=== PATIENT | female | born 1970 | race Caucasian/White ===

== ENCOUNTER 2018-10-12 06:49 | Emergency (ER) | payer OTHER ==
--- OUTSIDE RECORDS SUMMARY | 2018-10-12 06:53 | XMS REPORT | Continuity of Care Document ---
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 Aortic Active 09/04/19 Problem 09/24/2017 no trx- [facility],Surgic regurgitation<s 08 monitored by al up>1</sup> cardio Specialty [facility] 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 Neuro,[facility] [place] Fatigue Active Problem 10/12/2018 [facility] Foot drop, Resolved Problem 10/12/2018 [facility] [place] [facility] Headache Active Problem 10/12/2018 [facility] H/O: stroke Resolved Problem 10/12/2018 [facility] Paresthesia Active Problem 10/12/2018 [facility] Rheumatoid Active Problem 10/12/2018 [facility] Barretts Active Problem 09/24/2017 [facility],Surgic esophagus oh Specialty [facility] Coccydynia Active Problem 09/24/2017 [facility]Surgic al Specialty [facility] Depression Active Problem 09/24/2017 [facility],Surgic oh Specialty [facility] GERD - Active Problem 09/24/2017 [facility]Surgic Gastro-esophage [facility] reflux Specialty [facility] RA - Rheumatoid Active Problem 09/24/2017 [facility] arthritis UNSPECIFIED Active [facility] SYMPTOMS AND Lionel SIGNS INVOLVING Medications Medication Details Route Status Patient Ordering Order Source Instructions Provider Date heparin sodium, 5,000 unit, 1 No Longer 10/05/ [facility] porcine 2500 mL, Route: Active 2019 [facility] UNT/ML Injectable SUB-Q, Drug Center Solution form: INJ, Q8H-01, Dosing Weight 71.818, kg, Start date: 10/04/18 18:00:00 [employer] TRA[employer]ENGTH COACH, Duration: 30 day, Stop date: 11/03/18 17:00:00 CSTNotes: porcine heparin Ondansetron 4 MG 4 mg=1 tab, PO, Active [place] Oral Tablet TID, PRN Nausea 2019 Medical [Zofran] & Vomiting, # Center 12 tab, 0 Refill(s) tramadol 50 mg=1 tab, Active [place] hydrochloride 50 PO, Q4H, PRN 2019 Medical MG Oral Tablet Pain Score 1-3, Center X 14 day, # 50 tab, 0 Refill(s) sennosides, CUSTODIAL 8.6 mg=1 tab, Active [place] 8.6 MG Oral PO, Q12H, X 14 2019 Medical Tablet day, # 28 tab, Center 0 Refill(s) Promethazine 12.5 mg=1 tab, Active [place] Hydrochloride PO, Q6H, PRN 2019 Medical 12.5 MG Oral Nausea & Center Tablet Vomiting, # 12 [Phenergan] tab, 0 Refill(s) Acetaminophen 325 1 tab, PO, Q4H, Active [place] MG / Hydrocodone PRN Pain Score 2019 Medical Bitartrate 10 MG 4-6, X 14 day, Center Oral Tablet # 60 tab, 0 [[place] 10/325] Refill(s) Docusate Sodium 100 mg=1 cap, Active [place] 100 MG Oral PO, Q12H, # 28 2019 Medical Capsule cap, 0 Center Refill(s) Omeprazole 40 mg, Route: No Longer [place] PO, Daily, Active 2019 Medical Dosing Weight Center 71.818, kg, Start date: 10/04/18 9:00:00 HEAD [employer]THLETIC TRAINER/STRENGTH COACH, Duration: 30 day, Stop date: 11/02/18 9:00:00 HEAD [employer]LETIC TRAINER/STRENGTH COACH Prozac 20 mg, 1 cap, No Longer [place] Route: PO, Drug Active 2019 Medical form: CAP, Center Daily, Dosing Weight 71.818, kg, Start date: 10/04/18 9:00:00 HEAD ATHLETIC TRAINER/STRENGTH COACH, Duration: 30 day, Stop date: 11/02/18 9:00:00 CSTNotes: (Same as: Prozac, Sarafem) Protonix 40 mg, 1 tab, No Longer [place] Route: PO, Drug Active 2018 Medical form: ECTAB, Center Before Breakfast, Start date: 10/04/18 7:30:00 HEAD ATHLETIC TRAINER/STRENGTH COACH, Duration: 30 day, Stop date: 11/02/18 7:30:00 CSTNotes: Tablet should not be chewed or crushed. (Same as: Protonix) Saline Flush 0.9% 10 ml, Route: No Longer [place] IVP, Drug Form: Active 2019 Medical INJ, Dosing Center Weight 71.818, kg, Q12H, Start date: 10/03/18 21:00:00 HEAD ATHLETIC TRAINER/STRENGTH COACH, Duration: 30 day, Stop date: 11/02/18 9:00:00 CSTNotes: (Same as: BD Posiflush) sennosides, CUSTODIAL 8.6 mg, 1 tab, No Longer [place] Route: PO, Drug Active 2018 Medical Form: TAB, Center Dosing Weight 71.818, kg, Q12H, Start date: 10/03/18 21:00:00 HEAD ATHLETIC TRAINER/STRENGTH COACH, Duration: 30 day, Stop date: 11/02/18 9:00:00 CSTNotes: (Same as: Senokot) Docusate Sodium 100 mg, 1 cap, No Longer [place] 100 MG Oral Route: PO, Drug Active 2018 Medical Capsule form: CAP, Center Q12H, Dosing Weight 71.818, kg, Start date: 10/03/18 21:00:00 HEAD ATHLETIC TRAINER/STRENGTH COACH, Duration: 30 day, Stop date: 11/02/18 9:00:00 CSTNotes: (Same as: Colace) (Do Not Crush) ceFAZolin (SCIP) 2 gm, 20 mL, No Longer [place] Route: IVPB, Active 2019 Medical Drug form: Center SOLN, ABXQ8H, Dosing Weight 71.818, kg, Start date: 10/03/18 21:00:00 HEAD ATHLETIC TRAINER/STRENGTH COACH, Duration: 24 hr, Stop date: 10/04/18 13:00:00 HEAD ATHLETIC TRAINER/STRENGTH COACH, ABX Indication: Surgical ProphylaxisNote s: (Same as Ancef) gabapentin 300 mg, 1 cap, No Longer [place] Route: PO, Drug Active 2018 Medical form: CAP, TID, Center Dosing Weight 71.818, kg, Start date: 10/03/18 17:00:00 HEAD ATHLETIC TRAINER/STRENGTH COACH, Duration: 30 day, Stop date: 11/02/18 13:00:00 CSTNotes: (Same as: Neurontin) Hydromorphone 0.5 mg, Route: Inactive [facility] IVP, ONCE, 2018 Medical Dosing Weight Center 71.818, kg, PRN Pain Score 7-10, Start date: 10/03/18 16:26:00 HEAD ATHLETIC TRAINER/STRENGTH COACH Cefazolin 2 gm, 20 mL, Inactive [facility] Route: IVPB, 2018 Medical Drug form: Center SOLN, Q8H, Dosing Weight 71.818, kg, Start date: 10/03/18 16:00:00 HEAD ATHLETIC TRAINER/STRENGTH COACH, Duration: 24 hr, Stop date: 10/04/18 8:00:00 HEAD ATHLETIC TRAINER/STRENGTH COACH, ABX Indication: Surgical ProphylaxisNote s: (Same as Ancef) sugammadex (ANES) Route: IV, Drug Inactive [place] form: SOLN, 2018 Medical ONCE, Stop Center date: 10/03/18 16:00:00 HEAD ATHLETIC TRAINER/STRENGTH COACH Diphenhydramine 12.5 mg, 0.25 Inactive [facility] mL, Route: IVP2018 Medical Drug form: INJ, Center Q6H, Dosing Weight 71.818, kg, PRN Itching, Start date: 10/03/18 15:55:00 HEAD ATHLETIC TRAINER/STRENGTH COACH, Duration: 1 day, Stop date: 10/04/18 15:54:00 CSTNotes: (Same as: Benadryl) Naloxone 0.4 mg, 1 mL, Inactive [facility] Route: IVP, 2018 Medical Drug form: INJ, Center Q2MIN, Dosing Weight 71.818, kg, PRN Narcotic Reversal, Start date: 10/03/18 15:55:00 HEAD ATHLETIC TRAINER/STRENGTH COACH, Duration: 8 doses or times, Stop date: 10/04/18 0:00:00 CSTNotes: Same as Narcan Albuterol 0.83 2.49 mg, 3 mL, Inactive [facility] MG/ML Inhalant Route: NEB, 2018 Medical Solution Drug form: Center SOLN, Q20Min, Dosing Weight 71.818, kg, PRN Wheezing, Priority: STAT, Start date: 10/03/18 15:55:00 HEAD ATHLETIC TRAINER/STRENGTH COACH, Stop date: 10/04/18 0:00:00 CSTNotes: SEE RT DOCUMENTATION (Same as: Proventil) Flumazenil 0.2 mg, 2 mL, Inactive [place] Route: IVP, 2018 Medical Drug form: INJ, Center PRN, Dosing Weight 71.818, kg, PRN Benzodiazepine Reversal, Initial dose, Start date: 10/03/18 15:55:00 HEAD ATHLETIC TRAINER/STRENGTH COACH, Stop date: 10/04/18 0:00:00 CSTNotes: (Same as: Romazicon) Fentanyl 50 microgram, Inactive [facility] Route: IVP, 2018 Medical Q5Min, Dosing Center Weight 71.818, kg, PRN Pain Score 7-10, Priority: Routine, Start date: 10/03/18 15:55:00 HEAD ATHLETIC TRAINER/STRENGTH COACH, Duration: 2 doses or times, Stop date: Limited # of times Promethazine 6.25 mg, 0.25 Inactive [place] mL, Route: 2019 Medical IVPB, Drug Center form: INJ, ONCE, Dosing Weight 71.818, kg, PRN Nausea & Vomiting, Start date: 10/03/18 15:55:00 CSTNotes: Do not give IV push. (Same as: Phenergan) Ondansetron 4 mg, 2 mL, Inactive [facility] Route: IVP, 2018 Medical Drug form: INJ, Center ONCE, Dosing Weight 71.818, kg, PRN Nausea & Vomiting, Start date: 10/03/18 15:55:00 CSTNotes: (Same as: Zofran) MEDICATION WASTE Product Size: 4 mg Product Wasted: ___ mg Nicardipine 40 mg, 200 mL, No Longer [facility] Rate: Titrate, Active 2019 Medical Start Dose: 5 Center mg/hr, Titration: 2.5 mg/hr every 15 minutes, Goal(s): SBP 90-140, Max Dose: 15 mg/hr, Route: IV, Dosing Weight 71.818 kg, Total Volume: 200, Start date: 10/03/18 15:55:00 HEAD ATHLETIC TRAINER/STRENGTH COACH, Duration: 30 day, Stop date: 0...Notes: Same as: Cardene Tylenol 650 mg, 2 tab, No Longer [place] Route: PO, Drug Active 2019 Medical form: TAB, Q6H, Center Dosing Weight 71.818, kg, PRN Pain 1-3/Temp > 100.4 F, Start date: 10/03/18 15:31:00 HEAD ATHLETIC TRAINER/STRENGTH COACH, Duration: 30 day, Stop date: 11/02/18 15:30:00 CSTNotes: Do not exceed 4 gm/day. (Same as: Tylenol) tramadol 50 mg, 1 tab, No Longer [place] hydrochloride 50 Route: PO, Drug Active 2019 Medical MG Oral Tablet form: TAB, Q4H, Center Dosing Weight 71.818, kg, PRN Pain Score 1-3, Start date: 10/03/18 15:31:00 HEAD ATHLETIC TRAINER/STRENGTH COACH, Duration: 30 day, Stop date: 11/02/18 15:30:00 CSTNotes: Not to exceed 400mg/day. (Same As: Ultram) Acetaminophen 325 1 tab, Route: No Longer [place] MG / Hydrocodone PO, Drug Form: Active 2019 Medical Bitartrate 10 MG TAB, Dosing Center Oral Tablet Weight 71.818, [[place] 10/325] kg, Q4H, PRN Pain Score 1-3, Start date: 10/03/18 15:31:00 HEAD ATHLETIC TRAINER/STRENGTH COACH, Duration: 30 day, Stop date: 11/02/18 15:30:00 CSTNotes: Do not exceed 4gm/day of acetaminophen. (Same as: [place] 325/10) Dilaudid 0.2 mg, 0.1 mL, No Longer [place] Route: IVP, Active 2019 Medical Drug form: INJ, Center Q4H, Dosing Weight 71.818, kg, PRN Pain Score 7-10, Start date: 10/03/18 15:31:00 HEAD ATHLETIC TRAINER/STRENGTH COACH, Duration: 30 day, Stop date: 11/02/18 15:30:00 CSTNotes: Same as Dilaudid phenol 1 spray, Route: No Longer [place] TOP, Daily, Active 2019 Medical Drug form: Center SPRY, PRN Sore Throat, Start date: 10/03/18 15:31:00 HEAD ATHLETIC TRAINER/STRENGTH COACH, Duration: 30 day, Stop date: 11/02/18 15:30:00 CSTNotes: Chloraseptic [place] (Same as: Chloraseptic, Sore Throat [place]) WASTE: F/P - Black; E - Municipal Trash Bin Saline Flush 0.9% 10 ml, Route: No Longer [place] IVP, Drug Form: Active 2019 Medical INJ, Dosing Center Weight 71.818, kg, PRN, PRN Line Flush, Start date: 10/03/18 15:30:00 HEAD ATHLETIC TRAINER/STRENGTH COACH, Duration: 30 day, Stop date: 11/02/18 15:29:00 CSTNotes: (Same as: BD Posiflush) Bisacodyl 10 mg, 1 supp, No Longer [place] Route: UT, Drug Active 2018 Medical form: SUPP, Center Daily, Dosing Weight 71.818, kg, PRN Constipation, Start date: 10/03/18 15:30:00 HEAD ATHLETIC TRAINER/STRENGTH COACH, Duration: 30 day, Stop date: 11/02/18 15:29:00 CSTNotes: (Same As: Dulcolax, Bisco-Lax) Promethazine 12.5 mg, 0.5 No Longer [place] mL, Route: Active 2018 Medical IVPB, Drug Center form: INJ, Q6H, Dosing Weight 71.818, kg, PRN Nausea & Vomiting, Start date: 10/03/18 15:30:00 HEAD ATHLETIC TRAINER/STRENGTH COACH, Duration: 30 day, Stop date: 11/02/18 15:29:00 CSTNotes: Do not give IV push. (Same as: Phenergan) Ondansetron 4 mg, 2 mL, No Longer [place] Route: IVP, Active 2019 Medical Drug form: INJ, Center Q8H, Dosing Weight 71.818, kg, PRN Nausea & Vomiting, Start date: 10/03/18 15:30:00 HEAD ATHLETIC TRAINER/STRENGTH COACH, Duration: 30 day, Stop date: 11/02/18 15:29:00 CSTNotes: (Same as: Zofran) MEDICATION WASTE Product Size: 4 mg Product Wasted: ___ mg Metoclopramide 10 mg, 2 mL, No Longer [place] Route: IVP, Active 2019 Medical Drug form: INJ, Center Q6H, Dosing Weight 71.818, kg, PRN Nausea & Vomiting, Start date: 10/03/18 15:30:00 HEAD ATHLETIC TRAINER/STRENGTH COACH, Duration: 30 day, Stop date: 11/02/18 15:29:00 CSTNotes: (Same as: Reglan) Sodium Chloride 1,000 mL, Rate: No Longer [place] 0.9% IV 1,000 mL 75 ml/hr, Active 2018 Medical Infuse over: Center 13.3 hr, Route: IV, Dosing Weight 71.818 kg, Total Volume: 1,000, Start date: 10/03/18 15:30:00 HEAD ATHLETIC TRAINER/STRENGTH COACH, Duration: 30 day, Stop date: 11/02/18 15:29:00 HEAD ATHLETIC TRAINER/STRENGTH COACH, 1.81, m2 ondansetron Route: IV, Drug Inactive [place] (ANES) form: INJ, 2018 Medical ONCE, Stop Center date: 10/03/18 15:22:00 HEAD ATHLETIC TRAINER/STRENGTH COACH sugammadex 200 mg, 2 mL, No Longer [place] Route: IV, Drug Active 2018 Medical form: SOLN, Center ONCALL, Start date: 10/03/18 15:15:00 HEAD ATHLETIC TRAINER/STRENGTH COACH, Duration: 5 minutes, Stop date: 10/03/18 15:19:00 CSTNotes: (Same as: [place]) remifentanil Route: IV, Drug Inactive [place] (ANES) form: INJ, 2018 Medical ONCE, Stop Center date: 10/03/18 14:37:00 HEAD ATHLETIC TRAINER/STRENGTH COACH dexamethasone Route: IV, Drug Inactive [place] (ANES) form: INJ, 2018 Medical ONCE, Stop Center date: 10/03/18 14:17:00 HEAD ATHLETIC TRAINER/STRENGTH COACH fentaNYL (ANES) Route: IV, Drug Inactive [place] form: INJ, 2018 Medical ONCE, Stop Center date: 10/03/18 14:17:00 HEAD ATHLETIC TRAINER/STRENGTH COACH rocuronium (ANES) Route: IV, Drug Inactive [place] form: INJ, 2018 Medical ONCE, Stop Center date: 10/03/18 14:17:00 HEAD ATHLETIC TRAINER/STRENGTH COACH lidocaine (ANES) Route: IV, Drug Inactive [facility] form: INJ, 2018 Medical ONCE, Stop Center date: 10/03/18 14:17:00 HEAD ATHLETIC TRAINER/STRENGTH COACH propofol (ANES) Route: IV, Drug Inactive [place] form: INJ, 2019 Medical ONCE, Stop Center date: 10/03/18 14:17:00 HEAD ATHLETIC TRAINER/STRENGTH COACH ceFAZolin (ANES) Route: IV, Drug Inactive [place] form: INJ, 2019 Medical ONCE, Stop Center date: 10/03/18 13:52:00 HEAD ATHLETIC TRAINER/STRENGTH COACH mannitol (ANES) Route: IV, Drug Inactive [place] 200 mg form: INJ, 2019 Medical Start date: [place] 10/03/18 12:40:00 HEAD ATHLETIC TRAINER/STRENGTH COACH, Stop date: 10/03/18 13:40:00 HEAD ATHLETIC TRAINER/STRENGTH COACH remifentanil Route: IV, Drug Inactive [place] (ANES) 1 mg form: INJ, 2019 Medical Start date: [place] 10/03/18 12:35:00 HEAD ATHLETIC TRAINER/STRENGTH COACH, Stop date: 10/03/18 13:35:00 HEAD ATHLETIC TRAINER/STRENGTH COACH Sodium Chloride Route: IV, Drug Inactive [place] 0.9% IV (ANES) form: INJ, 2019 Medical 100 mL + Start date: [place] dexmedetomidine 10/03/18 (ANES) 200 12:35:00 HEAD ATHLETIC TRAINER/STRENGTH COACH, microgram Stop date: 10/03/18 13:35:00 HEAD ATHLETIC TRAINER/STRENGTH COACH Sodium Chloride Route: IV, Inactive [place] 0.9% IV (ANES) Total Volume: 2019 Medical 500 mL 500, Start Center date: 10/03/18 12:35:00 HEAD ATHLETIC TRAINER/STRENGTH COACH, Stop date: 10/03/18 13:35:00 HEAD ATHLETIC TRAINER/STRENGTH COACH propofol (ANES) Route: IV, Drug Inactive [place] 10 mg form: INJ, 2019 Medical Start date: [place] 10/03/18 12:32:00 HEAD ATHLETIC TRAINER/STRENGTH COACH, Stop date: 10/03/18 13:32:00 HEAD ATHLETIC TRAINER/STRENGTH COACH Lactated Ringers Route: IV, Inactive [place] Injection IV Total Volume: 2019 Medical (ANES) 1000 mL 1,000, Start Center date: 10/03/18 12:16:00 HEAD ATHLETIC TRAINER/STRENGTH COACH, Stop date: 10/03/18 13:16:00 HEAD ATHLETIC TRAINER/STRENGTH COACH Emend 40 mg, 1 cap, Inactive [place] Route: PO, Drug 2019 Medical form: CAP, PRE Center OP, Start date: 10/03/18 0:00:00 HEAD ATHLETIC TRAINER/STRENGTH COACH, Duration: 1 day, Stop date: 10/03/18 23:59:00 CSTNotes: Same as: Emend restricted to the Hematology/Onco logy service for high and moderate emetogenic regimen according to ASCO Guidelines Passthrough Only for Chemotherapy-In duced nausea & vomiting ceFAZolin + 2 gm, Route: No Longer [place] sterile water 20 IV, PRE OP, Active 2019 Medical mL Start date: Center 10/03/18 0:00:00 HEAD ATHLETIC TRAINER/STRENGTH COACH, Duration: 1 day, Stop date: 10/03/18 23:59:00 HEAD ATHLETIC TRAINER/STRENGTH COACH, ABX Indication: Surgical ProphylaxisNote s: (Same As: Ancef, Kefzol) MEDICATION WASTE Product Size: 1000 mg Product Wasted: ___ mg Misc Medication 1,180 mL, Inactive 09/22/ [facility] Soln-IV, IV, 2018 Once, first dose 09/22/17 8:35:00 HEAD ATHLETIC TRAINER/STRENGTH COACH, stop date 09/22/17 8:35:00 HEAD ATHLETIC TRAINER/STRENGTH COACH propofol 50 mg=5 mL, Inactive 09/22/ [facility] Emulsion, IV, 2017 Once, first dose 09/22/17 7:55:00 HEAD ATHLETIC TRAINER/STRENGTH COACH, stop date 09/22/17 7:55:00 HEAD ATHLETIC TRAINER/STRENGTH COACH propofol 50 mg=5 mL, Inactive 09/22/ [facility] Emulsion, IV, 2018 Once, first dose 09/22/17 7:51:00 HEAD ATHLETIC TRAINER/STRENGTH COACH, stop date 09/22/17 7:51:00 HEAD ATHLETIC TRAINER/STRENGTH COACH propofol 50 mg=5 mL, Inactive 09/22/ [facility] Emulsion, IV, 2017 Once, first dose 09/22/17 7:47:00 HEAD ATHLETIC TRAINER/STRENGTH COACH, stop date 09/22/17 7:47:00 HEAD ATHLETIC TRAINER/STRENGTH COACH propofol 50 mg=5 mL, Inactive 09/22/ [facility] Emulsion, IV, 2018 Once, first dose 09/22/17 7:43:00 HEAD ATHLETIC TRAINER/STRENGTH COACH, stop date 09/22/17 7:43:00 HEAD ATHLETIC TRAINER/STRENGTH COACH propofol 150 mg=15 mL, Inactive 09/22/ [facility] Emulsion, IV, 2018 Once, first dose 09/22/17 7:38:00 HEAD ATHLETIC TRAINER/STRENGTH COACH, stop date 09/22/17 7:38:00 HEAD ATHLETIC TRAINER/STRENGTH COACH lidocaine 5 mL, Inactive 09/22/ [facility] Injection, IV, 2018 Once, first dose 09/22/17 7:38:00 HEAD ATHLETIC TRAINER/STRENGTH COACH, stop date 09/22/17 7:38:00 HEAD ATHLETIC TRAINER/STRENGTH COACH Lidocaine 2% 0.2 0.2 mL, Inactive 09/22/ [facility] mL [facility] Sub[facility], Once PRN for other (see comment), first dose 09/22/17 7:03:00 HEAD ATHLETIC TRAINER/STRENGTH COACH LR 1,000 mL 1,000 mL, IV, Inactive 09/22/ [facility] 30 mL/hr, start 2018 date 09/22/17 7:03:00 HEAD ATHLETIC TRAINER/STRENGTH COACH Humira 20 mg/0.4 =0.4 mL, Active [facility] mL subcutaneous Subcutaneous, 2018 kit q2wk, Rheumatoid Arthritis D3 1000 1,000 IntUnit, Active [facility] Oral, Daily, 2017 supplement methotrexate 15 15 mg=1 tabs, Active 09/21/ [facility] mg oral tablet Oral, qWeek, 2017 Rheumatoid Arthritis tramadol 50 mg=1 tabs, Active [facility] hydrochloride 50 Oral, As 2018 MG Oral Tablet Indicated, PRN for pain, PRN only, Rheumatoid arthritis folic acid 1 mg 1 mg=1 tabs, Active [facility] oral tablet Oral, Daily, 2017 supplement multivitamin 1 tab, Oral, Active [facility] Daily, 2017 supplement Vitamin B12 =1 tabs, SL, Active [facility] Methylcobalamin Daily, 2017 supplement Iron Chews 15 mg 30 mg=2 tabs, Active [facility] oral tablet, Oral, Daily, 2017 chewable supplement gabapentin 300 mg 300 mg=1 caps, Active [facility] oral capsule Oral, As 2018 Indicated, PRN pain, PRN only, Rheumatoid Arthritis meloxicam 7.5 mg 7.5 mg=1 tabs, Active [facility] oral tablet Oral, BID, 0 2017 Refill(s), Rheumatoid Arthritis Misc Medication 60 mL, Soln-IV, Inactive [place] 11/07/ Surgical IV, Once, first 2014 Specialty dose 11/07/14 Hospital 7:14:00 HEAD ATHLETIC TRAINER/STRENGTH COACH, of [place] stop date [place] 11/07/14 7:14:00 HEAD ATHLETIC TRAINER/STRENGTH COACH propofol 60 mg=6 mL, Inactive [place] 11/07/ Surgical Emulsion, IV, 2014 Specialty Once, first Hospital dose 11/07/14 [facility] [place] 7:08:00 HEAD ATHLETIC TRAINER/STRENGTH COACH, [place] stop date 11/07/14 7:08:00 HEAD ATHLETIC TRAINER/STRENGTH COACH lidocaine 4 mL, Inactive [place] 11/07/ Surgical Injection, IV, 2014 Specialty Once, first Hospital dose 11/07/14 of [place] 7:04:00 HEAD ATHLETIC TRAINER/STRENGTH COACH, [place] stop date 11/07/14 7:04:00 HEAD ATHLETIC TRAINER/STRENGTH COACH propofol 160 mg=16 mL, Inactive [place] 11/07/ Surgical Emulsion, IV, 2014 Specialty Once, first Hospital dose 11/07/14 of [place] 7:04:00 HEAD ATHLETIC TRAINER/STRENGTH COACH, [place] stop date 11/07/14 7:04:00 HEAD ATHLETIC TRAINER/STRENGTH COACH Lidocaine 2% 0.2 0.2 mL, Inactive [place] 11/07/ Surgical mL IV Start Injection, 2014 Specialty [[place]] Subcutaneous, Hospital Once PRN for of [place] other (see [place] comment), first dose 11/07/14 6:19:00 HEAD ATHLETIC TRAINER/STRENGTH COACH LR 1,000 mL 1,000 mL, IV, Inactive [place] 11/07/ Surgical 30 mL/hr, start 2014 Specialty date 11/07/14 Hospital 6:19:00 HEAD ATHLETIC TRAINER/STRENGTH COACH of [place] Nexium 40 mg oral 40 mg=1 caps, No Longer 11/05/ [facility] delayed release Oral, Daily, 0 Active 2014 capsule Refill(s), [facility] CeleXA 20 mg oral 20 mg=1 tabs, No Longer 11/05/ [facility] tablet Oral, Daily, 0 Active 2014 Refill(s), [facility] Nexium 40 mg oral 40 mg=1 caps, Active 11/05/ Surgical delayed release Oral, Daily, 0 2014 Specialty capsule Refill(s), [facility] CeleXA 20 mg oral 20 mg=1 tabs, Active 11/05/ Surgical tablet Oral, Daily, 0 2014 Specialty Refill(s), Hospital depression of [place] Allergies, Adverse Reactions, Alerts Substance Category Reaction Severity Reaction Status Date Comments Source type Reported Immunizations Immunization Date Given Site Status Last Updated Comments Source Results Order Name Results Value Reference Date Interpretation Comments Source Range ELECTROLYTE AGAP 10.0 meq/L 10.0 - 10/03 [facility] 20.0 2019 [facility] ELECTROLYTE eGFR 109 10/03 Result Comment: The eGFR is calculated using the CKD-EPI formula. In most young, healthy individuals the eGFR will be > 90 mL/min/1.73m2. The eGFR declines with age. An eGFR of 60-89 may be normal in [facility] mL/min/1.7 /2018 some populations, particularly the elderly, for whom the CKD-EPI formula has not been extensively validated. Use of the eGFR is not recommended in the following populations: [address] Individuals with unstable creatinine concentrations, including patients and those with serious co-morbid conditions. Patients with extremes in muscle mass or diet. The data above are obtained from the National Kidney Disease Education Program (NKDEP) which additionally recommends that when the eGFR is used in patients with extremes of body mass index for purposes of drug dosing, the eGFR should be multiplied by the estimated BMI. ELECTROLYTE CO2 27 meq/L 24 - 32 10/03 [facility]2018 [facility] ELECTROLYTE Calcium Lvl 8.3 mg/dL 8.5 - 10.5 10/03 [facility]2018 [facility] ELECTROLYTE Potassium 4.0 meq/L 3.5 - 5.1 10/03 [facility] ELECTROLYTE Chloride Lvl 107 meq/L 95 - 109 10/[address] ELECTROLYTE Sodium Lvl 140 meq/L 135 - 145 10/[address] ELECTROLYTE Creatinine 0.61 mg/dL 0.50 - 10/03 [facility] Lvl 1.40 [facility] ELECTROLYTE Glucose Lvl 107 mg/dL 70 - 99 10/[address] ELECTROLYTE BUN 10 mg/dL 7 - 22 10/[address] HEMATOLOGY PT 13.8 s 12.0 - 10/03 [facility] 14.7 [facility] HEMATOLOGY PTT 32.4 s 22.9 - 10/03 [facility] 35.8 [facility] HEMATOLOGY INR 1.08 0.85 - 10/03 [facility] 1.17 [facility] HEMATOLOGY MCV 91.4 fL 80.0 - 10/03 [place] 98.0 [facility] HEMATOLOGY MCH 31.4 pg 27.0 - 10/03 [facility] 31.0 [facility] HEMATOLOGY Hct 35.9 % 36.0 - 10/03 [place] 48.0 [facility] HEMATOLOGY MCHC 34.4 g/dL 32.0 - 10/03 36.0 [facility] HEMATOLOGY RBC 3.93 M/CMM 4.20 - 10/03 [facility] 5.40 [facility] HEMATOLOGY Hgb 12.3 g/dL 12.0 - 10/03 [place] 16.0 [facility] HEMATOLOGY Platelet 184 K/CMM 133 - 450 10/03 [facility]2018 [facility] HEMATOLOGY MPV 10.4 fL 7.4 - 10.4 10/03 [facility] [facility] HEMATOLOGY RDW 12.8 % 11.5 - 10/03 [facility] 14.5 [facility] HEMATOLOGY WBC 5.6 K/CMM 3.7 - 10.4 10/03 2018 [facility] HEMATOLOGY Neutrophils 4.1 K/CMM 1.5 - 8.1 10/03 [facility] /2018 [facility] HEMATOLOGY Lymphocytes 1.1 K/CMM 1.0 - 5.5 10/03 [facility] HEMATOLOGY Monocytes # 0.3 K/CMM 0.0 - 0.8 10/03 [facility] HEMATOLOGY Eosinophils 0.1 K/CMM 0.0 - 0.5 10/03 [facility] HEMATOLOGY Eosinophils 1.3 % 0.0 - 4.0 10/03 [facility] HEMATOLOGY Basophils 0.7 % 0.0 - 1.0 10/03 2018 [facility] HEMATOLOGY Lymphocytes 20.3 % 20.0 - 10/03 [place] 40.0 [facility] HEMATOLOGY Monocytes 5.0 % 2.0 - 12.0 10/03 [facility] HEMATOLOGY Segs 72.7 % 45.0 - 10/03 [facility] 75.0 [facility] BLOOD BANK ABO/Rh A POS 10/02 [facility] RESULTS [facility] BLOOD BANK Antibody Negative 10/02 [facility] RESULTS [facility] (10/02/18 12:36 PM) [place] CHEM PANEL eGFR 109 10/02 Result Comment: The eGFR is calculated using the CKD-EPI formula. In most young, healthy individuals the eGFR will be >90 mL/ min/1.73m2. The eGFR declines with age. An eGFR of 60-89 may be normal in [facility] mL/min/1. some populations, particularly the elderly, for whom the CKD-EPI formula has not been extensively validated. Use of the eGFR is not recommended in the following populations: [address] Individuals with unstable creatinine concentrations, including patients and those with serious co-morbid conditions. Patients with extremes in muscle mass or diet. The data above are obtained from the National Kidney Disease Education Program (NKDEP) which additionally recommends that when the eGFR is used in patients with extremes of body mass index for purposes of drug dosing, the eGFR should be multiplied by the estimated BMI. CHEM PANEL Glucose Lvl 78 mg/dL 70 - 99 10/02 [facility] CHEM PANEL Creatinine 0.62 mg/dL 0.50 - 10/02 [facility] Lvl 1.40 [facility] CHEM PANEL BUN 10 mg/dL 7 - 22 10/02 2018 [facility] CHEM PANEL Sodium Lvl 141 meq/L 135 - 145 10/02 2018 [facility] CHEM PANEL Potassium 4.2 meq/L 3.5 - 5.1 10/02 [facility] l [facility] CHEM PANEL Calcium Lvl 8.8 mg/dL 8.5 - 10.5 10/02 2018 [facility] CHEM PANEL Chloride Lvl 107 meq/L 95 - 109 10/02 [facility]2018 [facility] CHEM PANEL CO2 31 meq/L 24 - 32 10/02 [facility]2018 [facility] CHEM PANEL AGAP 7.2 meq/L 10.0 - 10/02 [facility] 20.0 [facility] HEMATOLOGY Eosinophils 0.1 K/CMM 0.0 - 0.5 10/02 [facility] HEMATOLOGY Monocytes # 0.2 K/CMM 0.0 - 0.8 10/02 [facility] HEMATOLOGY Basophils 1.0 % 0.0 - 1.0 10/02 [facility] HEMATOLOGY Lymphocytes 35.9 % 20.0 - 10/02 [facility] 40.0 [facility] HEMATOLOGY Monocytes 4.3 % 2.0 - 12.0 10/02 2018 [facility] HEMATOLOGY Eosinophils 2.6 % 0.0 - 4.0 10/02 2018 [facility] HEMATOLOGY Neutrophils 2.8 K/CMM 1.5 - 8.1 10/02 [facility] HEMATOLOGY Lymphocytes 1.8 K/CMM 1.0 - 5.5 10/02 [facility] HEMATOLOGY Segs 56.2 % 45.0 - 10/02 [facility] 75.0 [facility] HEMATOLOGY INR 0.97 0.85 - 10/02 [facility] 1.17 [facility] HEMATOLOGY PT 12.7 s 12.0 - 10/02 [facility] 14.7 [facility] HEMATOLOGY PTT 29.4 s 22.9 - 10/02 [facility] 35.8 [facility] HEMATOLOGY MPV 10.3 fL 7.4 - 10.4 10/02 [facility] HEMATOLOGY Platelet 232 K/CMM 133 - 450 10/02 [facility] HEMATOLOGY MCHC 33.4 g/dL 32.0 - 10/02 36.0 [facility] HEMATOLOGY RDW 12.9 % 11.5 - 10/02 [facility] 14.5 [facility] HEMATOLOGY RBC 4.38 M/CMM 4.20 - 10/02 [facility] 5.40 /2018 [facility] HEMATOLOGY Hgb 13.4 g/dL 12.0 - 10/02 [facility] 16.0 [facility] HEMATOLOGY MCV 91.5 fL 80.0 - 10/02 [facility] 98.0 [facility] HEMATOLOGY Hct 40.1 % 36.0 - 10/02 [facility] 48.0 [facility] HEMATOLOGY WBC 4.9 K/CMM 3.7 - 10.4 10/02 [facility] /2018 [facility] HEMATOLOGY MCH 30.6 pg 27.0 - 10/02 [facility] 31.0 [facility] Carotid Carotid Clinical Indication: - tingling in mouth; 04/16 - [facility] /2017 - [place] Doppler Doppler Comparison: None bilat US bilat US Read by: Zion Hartman MD Dictated Date/time: 04/16/18 22:54 TECHNIQUE: Electronically Signed by: Zion Hartman MD 04/16/18 22:55 FINAL REPORT Uribe-scale, color Doppler and spectral Doppler of the carotid arteries was performed. Any reported ICA stenoses indirectly reference the distal internal carotid diameter as the denominator for the sten osis measurement, utilizing consensus panel criteria. FINDINGS: RIGHT: No significant plaque ICA PSV 160 cm/sec CCA PSV 91 cm/sec ICA/CCA ratio 1.2 Vertebral flow is antegrade. External carotid artery is patent. LEFT: No significant plaque ICA PSV 95 cm/sec CCA PSV 119 cm/sec ICA/CCA ratio 0.8 Vertebral flow is antegrade. External carotid artery is patent. IMPRESSION: 1. RIGHT: ICA stenosis <50 % by velocity criteria. 2. LEFT: ICA stenosis <50 % by velocity criteria. Consensus panel Doppler US criteria for diagnosis of ICA stenosis: Stenosis (%) ICA PSV (cm/sec) ICA/CCA ratio -- <50 <125 <2.0 50-69 125-230 2.0-4.0 >70 but less than >230 >4.0 near occlusion Near occlusion High, low, or Variable undetectable SL: WR3-Justyn Brain w/wo Brain w/wo EXAM: MRI BRAIN WITHOUT AND WITH CONTRAST 04/16 - [facility] contrast contrast MRI /2017 - [place] MRI DATE: 04/16/2018 12:49 PM CDT Read by: Sriram Spence MD Dictated Date/time: 04/16/18 15:16 Electronically Signed by: Sriram Spence MD 04/16/18 15:29 FINAL REPORT INDICATION: pt numbness on her tongue, dizziness and sweating since 10am this morning while at work. ADDITIONAL INFORMATION AND CONTRAST: About 17 ml dotarem utilized. COMPARISON: None. TECHNIQUE: Multiplanar, mutisequence MRI of the brain without and with contrast. FINDINGS: Diffusion weighted images demonstrate no focal signal abnormality. There are no significant foci of T2/FLAIR signal abnormality within the white or uribe matter. No acute intracranial hemorrhage detected. The ventricles are normal in size and symmetric. No extra-axial f luid collection identified. Uribe-white distinction is preserved. No mass lesion or midline shift detected. 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 The intracranial arterial and venous structures demonstrate normal flow voids. Postcontrast sequences demonstrate no definite abnormal intracranial enhancement. No definite enhancing parenchymal lesion detected. The visible paranasal sinuses and skull base are unremarkable. IMPRESSION: 1. No definite acute infarct or intracranial hemorrhage detected. 2. No significant migraine-related change or chronic small vessel ischemic change detected. 3. 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 SL: [id number] Brain Brain Stroke Patient Name: CASSIE ST 04/16 - [facility] Stroke wo wo contrast /2017 - [place] contrast CT CT : 1970; Age: 48 years y/o Female MR: [id number] Read by: Shilpi Grimes Dictated Date/time: 04/16/18 12:37 Electronically Signed by: Sydney Shilpi Kimani 04/16/18 12:39 FINAL REPORT Study: Brain Stroke wo contrast CT 04/16/2018 12:25 PM CDT Ordering Physician: Yina Millan Clinical Indication: Facial numbness - numbness to tongue; Comparison: None TECHNIQUE: CT images were obtained from the foramen magnum to the vertex without the use of intravenous contrast on a multidetector CT. Coronal and sagittal reconstructions were obtained. CT imaging performed at this location utilizes radiation dose optimization techniques which include one or more of the following: -Automated exposure control -Adjustment of the mA and/or kV according to patient size -Use of iterative reconstruction technique CT Radiation Dose DLP 907 mGy-cm FINDINGS: There is no evidence of acute intracranial hemorrhage, subacute territorial infarct, mass effect, midline shift, extra-axial fluid collection, hydrocephalus or other acute abnormalities. The uribe-white differentiation is well-maintained. The ventricles, basilar cisterns and posterior fossa are unremarkable. The calvarium, paranasal sinuses and mastoids are unremarkable. IMPRESSION: No CT evidence of acute intracranial process. Findings were discussed with ED clinician at 12:38 PM on 04/16/2018. If there is further concern for intracranial pathology or acute stroke, further assessment with an MRI of the brain should be considered. SL: WR4-M Vital Signs Vital Sign Value Date Comments Source Systolic (mm Hg) 128 10/05/2018 [facility] Diastolic (mm Hg) 77 10/05/2018 [facility] Temperature Oral (F) 98.6 F 10/05/2018 [facility] Heart Rate 73 10/05/2018 [facility] Respitory Rate 18 10/05/2018 [facility] Systolic (mm Hg) 131 10/05/2018 [facility] Diastolic (mm Hg) 71 10/05/2018 [facility] Respitory Rate 16 10/05/2018 [facility] Heart Rate 73 10/05/2018 [facility] Temperature Oral (F) 99.0 F 10/05/2018 [facility] Systolic (mm Hg) 123 10/05/2018 [facility] Diastolic (mm Hg) 69 10/05/2018 [facility] Heart Rate 70 10/05/2018 [facility] Respitory Rate 16 10/05/2018 [facility] Temperature Oral (F) 98.9 F 10/05/2018 [facility] Weight 71.818 10/03/2018 [facility] BMI Calculated 28.05 10/03/2018 [facility] Height 160.02 cm 10/03/2018 [facility] Weight 72.091 10/02/2018 [facility] BMI Calculated 28.15 10/02/2018 [facility] Height 160.02 cm 10/02/2018 [facility] Temperature Oral (F) 98.3 F 10/02/2018 [facility] Heart Rate 76 10/02/2018 [facility] Systolic (mm Hg) 130 10/02/2018 [facility] Diastolic (mm Hg) 86 10/02/2018 [facility] Systolic (mm Hg) 139 09/22/2017 [facility] Diastolic (mm Hg) 78 09/22/2017 [facility] Peripheral Pulse Rate 57 09/22/2017 [facility] Respitory Rate 16 09/22/2017 [facility] Respitory Rate 14 09/22/2017 [facility] Heart Rate 54 09/22/2017 [facility] Systolic (mm Hg) 145 09/22/2017 [facility] Diastolic (mm Hg) 77 09/22/2017 [facility] Heart Rate 55 09/22/2017 [facility] Respitory Rate 12 09/22/2017 [facility] Systolic (mm Hg) 114 09/22/2017 [facility] Diastolic (mm Hg) 54 09/22/2017 [facility] Heart Rate 54 09/22/2017 [facility] Temperature Oral (F) 36.3 Linda 09/22/2017 [facility] Weight Measured 63.5 09/22/2017 [facility] Height 162.56 cm 09/22/2017 [facility] Temperature Oral (F) 36.7 Linda 09/22/2017 [facility] Peripheral Pulse Rate 55 09/22/2017 [facility] Weight Measured 63.50 09/21/2017 [facility] Height 162.56 cm 09/21/2017 [facility] Systolic (mm Hg) 133 11/07/2014 [facility] Respitory Rate 16 11/07/2014 [facility] Diastolic (mm Hg) 60 11/07/2014 [facility] Peripheral Pulse Rate 66 11/07/2014 [facility] Systolic (mm Hg) 109 11/07/2014 [facility] Respitory Rate 15 11/07/2014 [facility] Heart Rate 64 11/07/2014 [facility] Diastolic (mm Hg) 65 11/07/2014 [facility] Heart Rate 65 11/07/2014 [facility] Respitory Rate 12 11/07/2014 [facility] Diastolic (mm Hg) 62 11/07/2014 [facility] Systolic (mm Hg) 106 11/07/2014 [facility] Peripheral Pulse Rate 72 11/07/2014 [facility] Temperature Oral (F) 36.5 Linda 11/07/2014 [facility] Temperature Oral (F) 36.6 Linda 11/07/2014 [facility] Peripheral Pulse Rate 70 11/07/2014 [facility] Weight 131.54 11/07/2014 [facility] Height 162.56 cm 11/07/2014 [facility] Weight 49.78 11/07/2014 [facility] Weight 49.78 11/05/2014 [facility] Weight 131.54 11/05/2014 [facility] Height 162.56 cm 11/05/2014 [facility] Encounters Location Location Encounter Encounter Reason Attending ADM DC Status Source Details Type Number For Provider Date Date Visit [facility] Outpatient [id number] John 11/07 11/07 [id number] John 09/22 09[facility]22 [id number] 09/22 09/22 [facility]2017 [facility] Outpatient [id number] SUSANNA 06/19 Active [facility] [place] Outpatient [id number] SUSANNA 07/18 [facility] [place] Outpatient [id number] VICTORINO 07/31 Active [facility] Outpatient [id number] RAYMUNDO FORDE 07/31 [facility] Outpatient [id number] SUSANNA 08/31 [facility] [place] Outpatient [id number] RAYMUNDO FORDE 10/02 Active [facility] Outpatient [id number] Raymundo Forde 10/02 10/03 [facility]2018 [facility]patient [id number] RAYMUNDO FORDE 10/03 [facility] [place] [facility] Outpatient [id number] Raymundo Forde 10/03 10/04 [facility]2018 [facility] [id number] Raymundo Forde 10/03 10/[address] [facility] /2018 [facility] Phone [id number] 10/08 10/10 [facility] Message /2018 [facility] Outpatient [id number] RAYMUNDO FORDE 10/16 [facility] Outpatient [id number] SUSANNA 11/30 [facility] [place] [facility] Preadmit [id number] John Active [facility] Procedures Procedure Code Date Perfomer Comments Source COLONOSCOPY auto-populated [facility] FLEXIBLE; 8 from documented DIAGNOSTIC; INCL. surgical case COLLECTION OF SPECIMENS 47536 (Other)<sup>1</sup> ESOPHAGOGASTRODUODEN auto-populated [facility] OSCOPY; FLEXIBLE 8 from documented DIAGNOSTIC 24222 surgical case (Other)<sup>2</sup> Back Surgery [facility] 7 Gastric BiPass [facility] 5 ESOPHAGOGASTRODUODEN Reed 1auto-populated Surgical OSCOPY; FLEXIBLE ESPINOZA 5 from documented Specialty (Other)<sup>1</sup> surgical case [facility] Appendectomy [id number] [facility] lap band removal [facility] Partial hysterectomy [id number] [facility] Cholecystectomy [id number] [facility] lap band placement [facility] Tubal ligation Surgical [facility] Appendectomy [id number] [facility] Cholecystectomy [id number] [facility] Gastric bypass [id number] [facility] operation Partial hysterectomy [id number] [facility] App[facility]ectomy [id number] [facility] Cholecystectomy [id number] [facility] Gastric bypass [id number] [facility] Partial hysterectomy [id number] [facility] colonoscopy [facility] EGD [facility]
--- OUTSIDE RECORDS SUMMARY | 2018-10-12 06:54 | XMS REPORT | Summary of Care ---
:1970 Author Organization [facility] Neurosurgery [facility] Address [address] [place] [address], [address] [place] [address]- Encounter HQ Jimr_sally(FIN) [id number] Date(s): 10/02/18 - 10/02/18 [facility] [address] [facility], [address] [place] [address] [phone] Discharge Disposition: Home or Self Care Attending Physician: Raymundo Forde MD Vital Signs Most recent to oldest [Reference Range]: 1 Height 160.02 cm (10/02/18 4:38 PM) Temperature Oral [96.4-99.1 DegF] 98.3 DegF (10/02/18 4:38 PM) Blood Pressure [90-140/60-90 mmHg] 130/86 mmHg (10/02/18 4:38 PM) Peripheral Pulse Rate [60-100 bpm] 76 bpm (10/02/18 4:38 PM) Weight 72.091 kg (10/02/18 4:38 PM) Body Mass Index 28.15 m2 (10/02/18 4:38 PM) Problem List Condition Effective Dates Status Health Status Informant Pineal gland cyst(Confirmed) Active Fatigue(Confirmed) Active Foot drop, right(Confirmed) Resolved Headache(Confirmed) Active H/O: stroke(Confirmed) Resolved Paresthesia(Confirmed) Active Rheumatoid arthritis, erosive, Active seronegative(Confirmed) Allergies, Adverse Reactions, Alerts Substance Reaction Severity Status NKDA Active Medications No Known Medications Results No data available for this section Immunizations No data available for this section Procedures Procedure Date Related Diagnosis Body Site Status Appendectomy Completed Cholecystectomy Completed Gastric bypass operation Completed Partial hysterectomy Completed Social History Social History Type Response Substance Abuse Use: None. Employment/School Status: Employed. 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 Alcohol Current, Type Wine. Frequency: 1-2 times per month. Smoking Status Unknown if ever smoked; Ready to change: No; Concerns about tobacco use in household: No; Exposure to Tobacco Smoke Unable to obtain; Cigarette Smoking Last 365 Days Unable to obtain; Reg Smoking Cessation Counseling No entered on: 10/03/18 Assessment and Plan No data available for this section
--- OUTSIDE RECORDS SUMMARY | 2018-10-12 06:54 | XMS REPORT | Summary of Care ---
:1970 Author Organization [facility] Neurosurgery [facility] Address [address] [place] [address], [address] [place] [address]- Encounter HQ Encntr_sally(FIN) [id number] Date(s): 10/03/18 - 10/03/18 [facility] Neurosurgery [facility] [address], [address] [place] [address] [phone] Discharge Disposition: Home or Self Care Attending Physician: Raymundo Forde MD Vital Signs No data available for this section Problem List Condition Effective Dates Status Health Status Informant Pineal gland cyst(Confirmed) Active Fatigue(Confirmed) Active Foot drop, right(Confirmed) Resolved Headache(Confirmed) Active H/O: stroke(Confirmed) Resolved Paresthesia(Confirmed) Active Rheumatoid arthritis, erosive, Active seronegative(Confirmed) Allergies, Adverse Reactions, Alerts Substance Reaction Severity Status NKDA Active Medications No data available for this section Results No data available for this section [...]
--- OUTSIDE RECORDS SUMMARY | 2018-10-12 06:55 | XMS REPORT | CCD ---
:1970 Author Organization [facility] Care Team Providers Name Role Phone John Reed Consulting Provider Allergies, Adverse Reactions, Alerts Substance Reaction Status No Known Allergies Active Problem List Condition Effective Dates Status Aortic regurgitation1 2007 Active Barretts esophagus Active Coccydynia Active Depression Active GERD - Gastro-esophageal reflux disease Active 1no trx- monitored by cardio Dr. Wong Medications Medication Instructions Start Date End Date Status Lidocaine 2% 0.2 mL IV 0.2 mL, Injection, 11/07/2014 11/07/2014 Discontinued Start [[facility]] Subcutaneous, Once PRN for other (see comment), first dose 11/07/14 6:19:00 PATROL AGENT LR 1,000 mL 1,000 mL, IV, 30 mL/hr, 11/07/2014 11/07/2014 Discontinued start date 11/07/14 6:19:00 PATROL AGENT lidocaine 4 mL, Injection, IV, Once, 11/07/2014 11/07/2014 Completed first dose 11/07/14 7:04:00 PATROL AGENT, stop date 11/07/14 7:04:00 PATROL AGENT Misc Medication 60 mL, Soln-IV, IV, Once, 11/07/2014 11/07/2014 Completed first dose 11/07/14 7:14:00 PATROL AGENT, stop date 11/07/14 7:14:00 PATROL AGENT propofol 60 mg=6 mL, Emulsion, IV, 11/07/2014 11/07/2014 Completed Once, first dose 11/07/14 7:08:00 PATROL AGENT, stop date 11/07/14 7:08:00 PATROL AGENT propofol 160 mg=16 mL, Emulsion, 11/07/2014 11/07/2014 Completed IV, Once, first dose 11/07/14 7:04:00 PATROL AGENT, stop date 11/07/14 7:04:00 PATROL AGENT Nexium 40 mg oral 40 mg=1 caps, Oral, Daily, 11/05/2014 11/19/2014 Ordered delayed release capsule 0 Refill(s), GERD CeleXA 20 mg oral tablet 20 mg=1 tabs, Oral, Daily, 11/05/2014 11/19/2014 Ordered 0 Refill(s), depression Vital Signs Most recent to oldest 1 2 3 [Reference Range]: Temperature Oral [35.8-37.3 36.6 DegC DegC] (11/07/2014 06:20:00) Temperature Tympanic 36.5 DegC [36.6-38.1 DegC] *LOW* (11/07/2014 07:10:00) Temperature Tympanic 97.7 Fahrenheit (11/07/2014 07:10:00) Peripheral Pulse Rate 66 bpm 72 bpm 70 bpm [55-105 bpm] (11/07/2014 09:20:00) (11/07/2014 07:10:00) (11/07/2014 06:20: 00) Heart Rate Monitored 64 bpm 65 bpm [60-100 bpm] (11/07/2014 07:30:00) (11/07/2014 07:20:00) Respiratory Rate [12-20] 16 15 12 (11/07/2014 09:20:00) (11/07/2014 07:30:00) (11/07/2014 07:20:00) SpO2 [90-100 %] 100 % 100 % 100 % (11/07/2014 09:20:00) (11/07/2014 07:30:00) (11/07/2014 07:20:00) Systolic Blood Pressure 133 mmHg 109 mmHg 106 mmHg [110-120 mmHg] *HI* *LOW* *LOW* (11/07/2014 09:20:00) (11/07/2014 07:30:00) (11/07/2014 07:20:00) Diastolic Blood Pressure 60 mmHg 65 mmHg 62 mmHg [65-85 mmHg] *LOW* (11/07/2014 07:30:00) *LOW* (11/07/2014 09:20:00) (11/07/2014 07:20:00) Mean Arterial Pressure, 79.7 mmHg 76.7 mmHg 77 mmHg Cuff (11/07/2014 07:30:00) (11/07/2014 07:20:00) (11/07/2014 07:10:00) Height 162.56 cm 162.56 cm (11/07/2014 06:20:00) (11/05/2014 08:36:00) Height/Length Dosing 162.56 cm 162.56 cm (11/07/2014 06:20:00) (11/05/2014 08:36:00) Height Inches 64 in 64 in (11/07/2014 06:20:00) (11/05/2014 08:36:00) Weight 131.54 kg 131.54 kg (11/07/2014 06:20:00) (11/05/2014 08:36:00) Weight Dosing 131.54 kg 131.54 kg (11/07/2014 06:20:00) (11/05/2014 08:36:00) Weight Pounds 289 lb 289 lb (11/07/2014 06:20:00) (11/05/2014 08:36:00) Body Mass Index 49.78 kg/m2 49.78 kg/m2 (11/07/2014 06:20:00) (11/05/2014 08:36:00) Procedures Procedures Date Related Diagnosis Appendectomy 2013 Cholecystectomy 2004 colonoscopy EGD MONCHO 04/2014 ESOPHAGOGASTRODUODENOSCOPY; FLEXIBLE ESPINOZA 11/07/2014 07:04:00 (Other)1 lap band placement 2004 lap band removal 2007 Partial hysterectomy 2007 Tubal ligation 2002 1auto-populated from documented surgical case
--- OUTSIDE RECORDS SUMMARY | 2018-10-12 06:55 | XMS REPORT | Summary of Care ---
:1970 Author Organization [facility] Neurosurgery [facility] [place] Address [address] [place] [address], [address] [place] [address]- Encounter HQ Encntr_alias(FIN) [phone] Date(s): 10/08/18 - 10/09/18 [facility] [place] [address] [place] [address], [address] [place] [address] [phone] Vital Signs No data available for this [...] Employment/School Status: Employed. 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 Alcohol Current, Type Wine. Frequency: 1-2 times [...]
--- OUTSIDE RECORDS SUMMARY | 2018-10-12 06:55 | XMS REPORT | Summary of Care ---
:1970 Author Organization [facility] Address [address] [place] [id number]- Encounter HQ Yanni_sally(FIN) [id number] Date(s): 10/03/18 - 10/05/[address] Professional Services provided by [facility] [place] [address]- Discharge Disposition: Home or Self Care Attending Physician: Raymundo Forde MD Admitting Physician: Raymundo Forde MD Referring Physician: Raymundo Forde MD Vital Signs Most recent to oldest 1 2 3 [Reference Range]: Height 160.02 cm (10/03/18 10:25 AM) Temperature Oral [96.4-99.1 98.6 DegF 99.0 DegF 98.9 DegF DegF] (10/05/18 8:29 AM) (10/05/18 4:25 AM) (10/04/18 11:18 PM) Blood Pressure [90-140/60-90 128/77 mmHg 131/71 mmHg 123/69 mmHg mmHg] (10/05/18 8:29 AM) (10/05/18 4:25 AM) (10/04/18 11:18 PM) Respiratory Rate [14-20 BRMIN] 18 BRMIN 16 BRMIN 16 BRMIN (10/05/18 8:29 AM) (10/05/18 4:25 AM) (10/04/18 11:18 PM) Peripheral Pulse Rate [60-100 73 bpm 73 bpm 70 bpm bpm] (10/05/18 8:29 AM) (10/05/18 4:25 AM) (10/04/18 11:18 PM) Weight 71.818 kg (10/03/18 10:25 AM) Body Mass Index 28.05 m2 (10/03/18 10:25 AM) Problem List Condition Effective Dates Status Health Status Informant Pineal gland cyst(Confirmed) Active Fatigue(Confirmed) Active Foot drop, right(Confirmed) Resolved Headache(Confirmed) Active H/O: stroke(Confirmed) Resolved Paresthesia(Confirmed) Active Rheumatoid arthritis, erosive, Active seronegative(Confirmed) Allergies, Adverse Reactions, Alerts Substance Reaction Severity Status NKDA Active Medications ANES albuterol 0.083% inhalation solution 2.49 mg, 3 mL, Route: NEB, Drug form: SOLN, Q20Min, Dosing Weight 71.818, kg, PRN Wheezing, Priority: STAT, Start date: 10/03/18 15:55:00 SOLAR SALES ASSESSOR, Stop date: 0:00:00 SOLAR SALES ASSESSOR Notes: SEE RT DOCUMENTATION (Same as: Charlie) Start Date: 10/03/18 Stop Date: 10/03/18 Status: DiscontinuedANES diphenhydrAMINE 12.5 mg, 0.25 mL, Route: IVP, Drug form: INJ, Q6H, Dosing Weight 71.818, kg, PRN Itching, Start date: 10/03/18 15:55:00 SOLAR SALES ASSESSOR, Duration: 1 day, Stop date: 15:54:00 SOLAR SALES ASSESSOR Notes: (Same as: Benadryl) Start Date: 10/03/18 Stop Date: 10/03/18 Status: DiscontinuedANES fentaNYL 50 microgram, Route: IVP, Q5Min, Dosing Weight 71.818, kg, PRN Pain Score 7-10, Priority: Routine, Start date: 10/03/18 15:55:00 SOLAR SALES ASSESSOR, Duration: 2 doses or times , Stop date: Limited # of times Start Date: 10/03/18 Stop Date: 10/03/18 Status: CompletedANES flumazenil 0.2 mg, 2 mL, Route: IVP, Drug form: INJ, PRN, Dosing Weight 71.818, kg, PRN Benzodiazepine Reversal, Initial dose, Start date: 10/03/18 15:55:00 SOLAR SALES ASSESSOR, Stop date: 10/04/18 0:00:00 SOLAR SALES ASSESSOR Notes: (Same as: Romazicon) Start Date: 10/03/18 Stop Date: 10/03/18 Status: DiscontinuedANES HYDROmorphone 0.5 mg, Route: IVP, ONCE, Dosing Weight 71.818, kg, PRN Pain Score 7-10, Start date: 10/03/18 16:26:00 SOLAR SALES ASSESSOR Start Date: 10/03/18 Stop Date: 10/03/18 Status: CompletedANES naloxone 0.4 mg, 1 mL, Route: IVP, Drug form: INJ, Q2MIN, Dosing Weight 71.818, kg, PRN Narcotic Reversal, Start date: 10/03/18 15:55:00 SOLAR SALES ASSESSOR, Duration: 8 doses or times , Stop date: 10/04/18 0:00:00 SOLAR SALES ASSESSOR Notes: Same as Narcan Start Date: 10/03/18 Stop Date: 10/03/18 Status: DiscontinuedANES ondansetron 4 mg, 2 mL, Route: IVP, Drug form: INJ, ONCE, Dosing Weight 71.818, kg, PRN Nausea & Vomiting, Start date: 10/03/18 15:55:00 SOLAR SALES ASSESSOR Notes: (Same as: Zofran) MEDICATION WASTE Product Size: 4 mgProduct Wasted: ___ mg Start Date: 10/03/18 Stop Date: 10/03/18 Status: DiscontinuedANES promethazine 6.25 mg, 0.25 mL, Route: IVPB, Drug form: INJ, ONCE, Dosing Weight 71.818, kg, PRN Nausea & Vomiting, Start date: 10/03/18 15:55:00 SOLAR SALES ASSESSOR Notes: Do not give IV push. (Same as: Phenergan) Start Date: 10/03/18 Stop Date: 10/03/18 Status: Discontinuedbisacodyl 10 mg, 1 supp, Route: WV, Drug form: SUPP, Daily, Dosing Weight 71.818, kg, PRN Constipation, Start date: 10/03/18 15:30:00 SOLAR SALES ASSESSOR, Duration: 30 day, Stop date: 15:29:00 SOLAR SALES ASSESSOR Notes: (Same As: Dulcolax, Bisco-Lax) Start Date: 10/03/18 Stop Date: 10/05/18 Status: DiscontinuedceFAZolin (ANES) Route: IV, Drug form: INJ, ONCE, Stop date: 10/03/18 13:52:00 SOLAR SALES ASSESSOR Start Date: 10/03/18 Stop Date: 10/03/18 Status: CompletedceFAZolin (SCIP) 2 gm, 20 mL, Route: IVPB, Drug form: SOLN, Q8H, Dosing Weight 71.818, kg, Start date: 10/03/18 16:00:00 SOLAR SALES ASSESSOR, Duration: 24 hr, Stop date: 10/04/18 8:00:00 SOLAR SALES ASSESSOR, ABX Indication: Surgical Prophylaxis Notes: (Same as Ancef) Start Date: 10/03/18 Stop Date: 10/03/18 Status: DiscontinuedceFAZolin (SCIP) 2 gm, 20 mL, Route: IVPB, Drug form: SOLN, ABXQ8H, Dosing Weight 71.818, kg, Start date: 10/03/18 21:00:00 SOLAR SALES ASSESSOR, Duration: 24 hr, Stop date: 10/04/18 13:00: 00 SOLAR SALES ASSESSOR, ABX Indication: Surgical Prophylaxis Notes: (Same as Ancef) Start Date: 10/03/18 Stop Date: 10/04/18 Status: CompletedceFAZolin + sterile water 20 mL 2 gm, Route: IV, PRE OP, Start date: 10/03/18 0:00:00 SOLAR SALES ASSESSOR, Duration: 1 day, Stop date: 10/03/18 23:59:00 SOLAR SALES ASSESSOR, ABX Indication: Surgical Prophylaxis Notes: (Same As: Anita, Leroyzol) MEDICATION WASTE Product Size: 1000 mgProduct Wasted: ___ mg Start Date: 10/03/18 Stop Date: 10/05/18 Status: DiscontinuedChloraseptic 1.4% spray 1 spray, Route: TOP, Daily, Drug form: SPRY, PRN Sore Throat, Start date: 15:31:00 SOLAR SALES ASSESSOR, Duration: 30 day, Stop date: 11/02/18 15:30:00 SOLAR SALES ASSESSOR Notes: Chloraseptic Evans(Same as: Chloraseptic, Sore Throat Evans)WASTE: F/P - Black; E - MunicipalTrash Bin Start Date: 10/03/18 Stop Date: 10/05/18 Status: Discontinueddexamethasone (ANES) Route: IV, Drug form: INJ, ONCE, Stop date: 10/03/18 14:17:00 SOLAR SALES ASSESSOR Start Date: 10/03/18 Stop Date: 10/03/18 Status: CompletedDilaudid 0.2 mg, 0.1 mL, Route: IVP, Drug form: INJ, Q4H, Dosing Weight 71.818, kg, PRN Pain Score 7-10, Start date: 10/03/18 15:31:00 SOLAR SALES ASSESSOR, Duration: 30 day, Stop date : 11/02/18 15:30:00 SOLAR SALES ASSESSOR Notes: Same as Dilaudid Start Date: 10/03/18 Stop Date: 10/05/18 Status: Discontinueddocusate sodium 100 mg oral capsule 100 mg, 1 cap, Route: PO, Drug form: CAP, Q12H, Dosing Weight 71.818, kg, Start date: 10/03/18 21:00:00 SOLAR SALES ASSESSOR, Duration: 30 day, Stop date: 11/02/18 9:00:00 SOLAR SALES ASSESSOR Notes: (Same as: Colace) (Do Not Crush) Start Date: 10/03/18 Stop Date: 10/05/18 Status: Discontinueddocusate sodium 100 mg oral capsule 100 mg=1 cap, PO, Q12H, # 28 cap, 0 Refill(s) Start Date: 10/04/18 Stop Date: 10/18/18 Status: OrderedEmend 40 mg, 1 cap, Route: PO, Drug form: CAP, PRE OP, Start date: 10/03/18 0:00:00 SOLAR SALES ASSESSOR, Duration: 1 day, Stop date: 10/03/18 23:59:00 SOLAR SALES ASSESSOR Notes: Same as: Emendrestricted to the Hematology/Oncology service for high and moderate emetogenic regimen according to ASCO Guidelines PassthroughOnly for Chemotherapy-Induced nausea & vomiting Start Date: 10/03/18 Stop Date: 10/03/18 Status: CompletedfentaNYL (ANES) Route: IV, Drug form: INJ, ONCE, Stop date: 10/03/18 14:17:00 SOLAR SALES ASSESSOR Start Date: 10/03/18 Stop Date: 10/03/18 Status: Completedgabapentin 300 mg, 1 cap, Route: PO, Drug form: CAP, TID, Dosing Weight 71.818, kg, Start date: 10/03/18 17:00:00 SOLAR SALES ASSESSOR, Duration: 30 day, Stop date: 11/02/18 13:00:00 SOLAR SALES ASSESSOR Notes: (Same as: Neurontin) Start Date: 10/03/18 Stop Date: 10/05/18 Status: Discontinuedheparin 5000 units/mL injectable solution 5,000 unit, 1 mL, Route: SUB-Q, Drug form: INJ, Q8H-01, Dosing Weight 71.818, kg , Start date: 10/04/18 18:00:00 SOLAR SALES ASSESSOR, Duration: 30 day, Stop date: 11/03/18 17:00 :00 SOLAR SALES ASSESSOR Notes: porcine heparin Start Date: 10/04/18 Stop Date: 10/05/18 Status: DiscontinuedLactated Ringers Injection IV (ANES) 1000 mL Route: IV, Total Volume: 1,000, Start date: 10/03/18 12:16:00 SOLAR SALES ASSESSOR, Stop date: 13:16:00 SOLAR SALES ASSESSOR Start Date: 10/03/18 Stop Date: 10/03/18 Status: Completedlidocaine (ANES) Route: IV, Drug form: INJ, ONCE, Stop date: 10/03/18 14:17:00 SOLAR SALES ASSESSOR Start Date: 10/03/18 Stop Date: 10/03/18 Status: Completedmannitol (ANES) 200 mg Route: IV, Drug form: INJ, Start date: 10/03/18 12:40:00 SOLAR SALES ASSESSOR, Stop date: 13:40:00 SOLAR SALES ASSESSOR Start Date: 10/03/18 Stop Date: 10/03/18 Status: Completedmetoclopramide 10 mg, 2 mL, Route: IVP, Drug form: INJ, Q6H, Dosing Weight 71.818, kg, PRN Nausea & Vomiting, Start date: 10/03/18 15:30:00 SOLAR SALES ASSESSOR, Duration: 30 day, Stop date: 11/02/18 15:29:00 SOLAR SALES ASSESSOR Notes: (Same as: Reglan) Start Date: 10/03/18 Stop Date: 10/05/18 Status: DiscontinuedniCARdipine 20 mg in NS 200 mL (Titrate.) IV 40 mg 40 mg, 200 mL, Rate: Titrate, Start Dose: 5 mg/hr, Titration: 2.5 mg/hr every 15 minutes, Goal(s): SBP 90-140, Max Dose: 15 mg/hr, Route: IV, Dosing Weight 71.818 kg, Total Volume: 200, Start date: 10/03/18 15:55:00 SOLAR SALES ASSESSOR, Duration: 30 day, Stop date: 0... Notes: Same as: Cardene Start Date: 10/03/18 Stop Date: 10/05/18 Status: DiscontinuedNorco 10/325 oral tablet 1 tab, Route: PO, Drug Form: TAB, Dosing Weight 71.818, kg, Q4H, PRN Pain Score 1-3, Start date: 10/03/18 15:31:00 SOLAR SALES ASSESSOR, Duration: 30 day, Stop date: 11/02/18 15 :30:00 SOLAR SALES ASSESSOR Notes: Do not exceed 4gm/day of acetaminophen. (Same as: Merced 325/10) Start Date: 10/03/18 Stop Date: 10/05/18 Status: DiscontinuedNorco 10/325 oral tablet 2 tab, Route: PO, Drug Form: TAB, Dosing Weight 71.818, kg, Q4H, PRN Pain Score 4-6, Start date: 10/03/18 15:31:00 SOLAR SALES ASSESSOR, Duration: 30 day, Stop date: 11/02/18 15 :30:00 SOLAR SALES ASSESSOR Notes: Do not exceed 4gm/day of acetaminophen. (Same as: Merced 325/10) Start Date: 10/03/18 Stop Date: 10/05/18 Status: DiscontinuedNorco 10/325 oral tablet 1 tab, PO, Q4H, PRN Pain Score 4-6, X 14 day, # 60 tab, 0 Refill(s) Start Date: 10/04/18 Stop Date: 10/18/18 Status: Orderedomeprazole 40 mg, Route: PO, Daily, Dosing Weight 71.818, kg, Start date: 10/04/18 9:00:00 SOLAR SALES ASSESSOR, Duration: 30 day, Stop date: 11/02/18 9:00:00 SOLAR SALES ASSESSOR Start Date: 10/04/18 Stop Date: 10/03/18 Status: Deletedondansetron 4 mg, 2 mL, Route: IVP, Drug form: INJ, Q8H, Dosing Weight 71.818, kg, PRN Nausea & Vomiting, Start date: 10/03/18 15:30:00 SOLAR SALES ASSESSOR, Duration: 30 day, Stop date: 11/02/18 15:29:00 SOLAR SALES ASSESSOR Notes: (Same as: Zofran) MEDICATION WASTE Product Size: 4 mgProduct Wasted: ___ mg Start Date: 10/03/18 Stop Date: 10/05/18 Status: Discontinuedondansetron (ANES) Route: IV, Drug form: INJ, ONCE, Stop date: 10/03/18 15:22:00 SOLAR SALES ASSESSOR Start Date: 10/03/18 Stop Date: 10/03/18 Status: CompletedPhenergan 12.5 mg oral tablet 12.5 mg=1 tab, PO, Q6H, PRN Nausea & Vomiting, # 12 tab, 0 Refill(s) Start Date: 10/04/18 Stop Date: 10/07/18 Status: Orderedpromethazine 12.5 mg, 0.5 mL, Route: IVPB, Drug form: INJ, Q6H, Dosing Weight 71.818, kg, PRN Nausea & Vomiting, Start date: 10/03/18 15:30:00 SOLAR SALES ASSESSOR, Duration: 30 day, Stop date: 11/02/18 15:29:00 SOLAR SALES ASSESSOR Notes: Do not give IV push. (Same as: Phenergan) Start Date: 10/03/18 Stop Date: 10/05/18 Status: Discontinuedpropofol (ANES) Route: IV, Drug form: INJ, ONCE, Stop date: 10/03/18 14:17:00 SOLAR SALES ASSESSOR Start Date: 10/03/18 Stop Date: 10/03/18 Status: Completedpropofol (ANES) 10 mg Route: IV, Drug form: INJ, Start date: 10/03/18 12:32:00 SOLAR SALES ASSESSOR, Stop date: 13:32:00 SOLAR SALES ASSESSOR Start Date: 10/03/18 Stop Date: 10/03/18 Status: CompletedProtonix 40 mg, 1 tab, Route: PO, Drug form: ECTAB, Before Breakfast, Start date: 7:30:00 SOLAR SALES ASSESSOR, Duration: 30 day, Stop date: 11/02/18 7:30:00 SOLAR SALES ASSESSOR Notes: Tablet should not be chewed or crushed.(Same as: Protonix) Start Date: 10/04/18 Stop Date: 10/05/18 Status: DiscontinuedPROzac 20 mg, 1 cap, Route: PO, Drug form: CAP, Daily, Dosing Weight 71.818, kg, Start date: 10/04/18 9:00:00 SOLAR SALES ASSESSOR, Duration: 30 day, Stop date: 11/02/18 9:00:00 SOLAR SALES ASSESSOR Notes: (Same as: Celio Kovacs) Start Date: 10/04/18 Stop Date: 10/05/18 Status: Discontinuedremifentanil (ANES) Route: IV, Drug form: INJ, ONCE, Stop date: 10/03/18 14:37:00 SOLAR SALES ASSESSOR Start Date: 10/03/18 Stop Date: 10/03/18 Status: Completedremifentanil (ANES) 1 mg Route: IV, Drug form: INJ, Start date: 10/03/18 12:35:00 SOLAR SALES ASSESSOR, Stop date: 13:35:00 SOLAR SALES ASSESSOR Start Date: 10/03/18 Stop Date: 10/03/18 Status: Completedrocuronium (ANES) Route: IV, Drug form: INJ, ONCE, Stop date: 10/03/18 14:17:00 SOLAR SALES ASSESSOR Start Date: 10/03/18 Stop Date: 10/03/18 Status: CompletedSaline Flush 0.9% 10 ml, Route: IVP, Drug Form: INJ, Dosing Weight 71.818, kg, PRN, PRN Line Flush , Start date: 10/03/18 15:30:00 SOLAR SALES ASSESSOR, Duration: 30 day, Stop date: 11/02/18 15:29 :00 SOLAR SALES ASSESSOR Notes: (Same as: BD Posiflush) Start Date: 10/03/18 Stop Date: 10/05/18 Status: DiscontinuedSaline Flush 0.9% 10 ml, Route: IVP, Drug Form: INJ, Dosing Weight 71.818, kg, Q12H, Start date: 10/03/18 21:00:00 SOLAR SALES ASSESSOR, Duration: 30 day, Stop date: 11/02/18 9:00:00 SOLAR SALES ASSESSOR Notes: (Same as: BD Posiflush) Start Date: 10/03/18 Stop Date: 10/05/18 Status: Discontinuedsenna 8.6 mg, 1 tab, Route: PO, Drug Form: TAB, Dosing Weight 71.818, kg, Q12H, Start date: 10/03/18 21:00:00 SOLAR SALES ASSESSOR, Duration: 30 day, Stop date: 11/02/18 9:00:00 SOLAR SALES ASSESSOR Notes: (Same as: Senokot) Start Date: 10/03/18 Stop Date: 10/05/18 Status: Discontinuedsenna 8.6 mg oral tablet 8.6 mg=1 tab, PO, Q12H, X 14 day, # 28 tab, 0 Refill(s) Start Date: 10/04/18 Stop Date: 10/18/18 Status: OrderedSodium Chloride 0.9% IV (ANES) 100 mL + dexmedetomidine (ANES) 200 microgram Route: IV, Drug form: INJ, Start date: 10/03/18 12:35:00 SOLAR SALES ASSESSOR, Stop date: 13:35:00 SOLAR SALES ASSESSOR Start Date: 10/03/18 Stop Date: 10/03/18 Status: CompletedSodium Chloride 0.9% IV (ANES) 500 mL Route: IV, Total Volume: 500, Start date: 10/03/18 12:35:00 SOLAR SALES ASSESSOR, Stop date: 13:35:00 SOLAR SALES ASSESSOR Start Date: 10/03/18 Stop Date: 10/03/18 Status: CompletedSodium Chloride 0.9% IV 1,000 mL 1,000 mL, Rate: 75 ml/hr, Infuse over: 13.3 hr, Route: IV, Dosing Weight 71.818 kg, Total Volume: 1,000, Start date: 10/03/18 15:30:00 SOLAR SALES ASSESSOR, Duration: 30 day, Stop date: 11/02/18 15:29:00 SOLAR SALES ASSESSOR, 1.81, m2 Start Date: 10/03/18 Stop Date: 10/05/18 Status: Discontinuedsugammadex 200 mg, 2 mL, Route: IV, Drug form: BAKARI WORKMAN, Start date: 10/03/18 15:15:00 SOLAR SALES ASSESSOR, Duration: 5 minutes, Stop date: 10/03/18 15:19:00 SOLAR SALES ASSESSOR Notes: (Same as: Luciaion) Start Date: 10/03/18 Stop Date: 10/05/18 Status: Discontinuedsugammadex (ANES) Route: IV, Drug form: SOLN, ONCE, Stop date: 10/03/18 16:00:00 SOLAR SALES ASSESSOR Start Date: 10/03/18 Stop Date: 10/03/18 Status: Completedtramadol 50 mg oral tablet 50 mg, 1 tab, Route: PO, Drug form: TAB, Q4H, Dosing Weight 71.818, kg, PRN Pain Score 1-3, Start date: 10/03/18 15:31:00 SOLAR SALES ASSESSOR, Duration: 30 day, Stop date: 11/02/18 15:30:00 SOLAR SALES ASSESSOR Notes: Not to exceed 400mg/day. (Same As: Ultram) Start Date: 10/03/18 Stop Date: 10/05/18 Status: Discontinuedtramadol 50 mg oral tablet 50 mg=1 tab, PO, Q4H, PRN Pain Score 1-3, X 14 day, # 50 tab, 0 Refill(s) Start Date: 10/04/18 Stop Date: 10/18/18 Status: OrderedTylenol 650 mg, 2 tab, Route: PO, Drug form: TAB, Q6H, Dosing Weight 71.818, kg, PRN Pain 1-3/Temp > 100.4 F, Start date: 10/03/18 15:31:00 SOLAR SALES ASSESSOR, Duration: 30 day , Stop date: 11/02/18 15:30:00 SOLAR SALES ASSESSOR Notes: Do not exceed 4 gm/day. (Same as: Tylenol) Start Date: 10/03/18 Stop Date: 10/05/18 Status: DiscontinuedZofran 4 mg oral tablet 4 mg=1 tab, PO, TID, PRN Nausea & Vomiting, # 12 tab, 0 Refill(s) Start Date: 10/04/18 Stop Date: 10/07/18 Status: Ordered Results BLOOD BANK RESULTS Most recent to oldest [Reference Range]: 1 2 ABO/Rh A POS *Unknown* (10/02/18 12:36 PM) Antibody Scrn Negative (10/02/18 12:36 PM) ELECTROLYTES Most recent to oldest [Reference Range]: 1 2 Sodium Lvl [135-145 mEq/L] 140 mEq/L 141 mEq/L (10/03/18 3:45 PM) (10/02/18 10:45 AM) Potassium Lvl [3.5-5.1 mEq/L] 4.0 mEq/L 4.2 mEq/L (10/03/18 3:45 PM) (10/02/18 10:45 AM) Chloride Lvl [95-109 mEq/L] 107 mEq/L 107 mEq/L (10/03/18 3:45 PM) (10/02/18 10:45 AM) CO2 [24-32 mEq/L] 27 mEq/L 31 mEq/L (10/03/18 3:45 PM) (10/02/18 10:45 AM) AGAP [10.0-20.0 mEq/L] 10.0 mEq/L 7.2 mEq/L (10/03/18 3:45 PM) *LOW* (10/02/18 10:45 AM) CHEM PANEL Most recent to oldest [Reference Range]: 1 2 Creatinine Lvl [0.50-1.40 mg/dL] 0.61 mg/dL 0.62 mg/dL (10/03/18 3:45 PM) (10/02/18 10:45 AM) eGFR 109 mL/min/1.73m2 1 109 mL/min/1.73m2 2 *NA* *NA* (10/03/18 3:45 PM) (10/02/18 10:45 AM) BUN [7-22 mg/dL] 10 mg/dL 10 mg/dL (10/03/18 3:45 PM) (10/02/18 10:45 AM) Glucose Lvl [70-99 mg/dL] 107 mg/dL 78 mg/dL *HI* (10/02/18 10:45 AM) (10/03/18 3:45 PM) Calcium Lvl [8.5-10.5 mg/dL] 8.3 mg/dL 8.8 mg/dL *LOW* (10/02/18 10:45 AM) (10/03/18 3:45 PM) 1Result Comment: The eGFR is calculated using the CKD-EPI formula. In most young , healthy individualsthe eGFR will be >90 mL/min/1.73m2. The eGFR declines with age. An eGFR of 60-89 may be normal insome populations, particularly the elderly, for whom the CKD-EPI formula has not been extensively validated. Use of the eGFR is not recommended in the following populations: Individuals with unstable creatinine concentrations, including patients and those with serious co-morbid conditions. Patients with extremes in muscle mass or diet. The data above are obtained from the National Kidney Disease Education Program ( NKDEP) which additionally recommends that when the eGFR is used in patients with extremes of body mass index for purposesof drug dosing, the eGFR should be multiplied by the estimated BMI.2Result Comment: The eGFR is calculated using the CKD-EPI formula. In most young, healthy individualsthe eGFR will be >90 mL/min/1.73m2. The eGFR declines with age. An eGFR of 60-89 may be normal insome populations, particularly the elderly, for whom the CKD-EPI formula has not been extensively validated. Use of the eGFR is not recommended in the following populations: Individuals with unstable creatinine concentrations, including patients and those with serious co-morbid conditions. Patients with extremes in muscle mass or diet. The data above are obtained from the National Kidney Disease Education Program ( NKDEP) which additionally recommends that when the eGFR is used in patients with extremes of body mass index for purposesof drug dosing, the eGFR should be multiplied by the estimated BMI.HEMATOLOGY Most recent to oldest [Reference Range]: 1 2 WBC [3.7-10.4 K/CMM] 5.6 K/CMM 4.9 K/CMM (10/03/18 3:45 PM) (10/02/18 10:45 AM) RBC [4.20-5.40 M/CMM] 3.93 M/CMM 4.38 M/CMM *LOW* (10/02/18 10:45 AM) (10/03/18 3:45 PM) Hgb [12.0-16.0 g/dL] 12.3 g/dL 13.4 g/dL (10/03/18 3:45 PM) (10/02/18 10:45 AM) Hct [36.0-48.0 %] 35.9 % 40.1 % *LOW* (10/02/18 10:45 AM) (10/03/18 3:45 PM) MCV [80.0-98.0 fL] 91.4 fL 91.5 fL (10/03/18 3:45 PM) (10/02/18 10:45 AM) MCH [27.0-31.0 pg] 31.4 pg 30.6 pg *HI* (10/02/18 10:45 AM) (10/03/18 3:45 PM) MCHC [32.0-36.0 g/dL] 34.4 g/dL 33.4 g/dL (10/03/18 3:45 PM) (10/02/18 10:45 AM) RDW [11.5-14.5 %] 12.8 % 12.9 % (10/03/18 3:45 PM) (10/02/18 10:45 AM) MPV [7.4-10.4 fL] 10.4 fL 10.3 fL (10/03/18 3:45 PM) (10/02/18 10:45 AM) Platelet [133-450 K/CMM] 184 K/CMM 232 K/CMM (10/03/18 3:45 PM) (10/02/18 10:45 AM) Segs [45.0-75.0 %] 72.7 % 56.2 % (10/03/18 3:45 PM) (10/02/18 10:45 AM) Lymphocytes [20.0-40.0 %] 20.3 % 35.9 % (10/03/18 3:45 PM) (10/02/18 10:45 AM) Monocytes [2.0-12.0 %] 5.0 % 4.3 % (10/03/18 3:45 PM) (10/02/18 10:45 AM) Eosinophils [0.0-4.0 %] 1.3 % 2.6 % (10/03/18 3:45 PM) (10/02/18 10:45 AM) Basophils [0.0-1.0 %] 0.7 % 1.0 % (10/03/18 3:45 PM) (10/02/18 10:45 AM) Neutrophils # [1.5-8.1 K/CMM] 4.1 K/CMM 2.8 K/CMM (10/03/18 3:45 PM) (10/02/18 10:45 AM) Lymphocytes # [1.0-5.5 K/CMM] 1.1 K/CMM 1.8 K/CMM (10/03/18 3:45 PM) (10/02/18 10:45 AM) Monocytes # [0.0-0.8 K/CMM] 0.3 K/CMM 0.2 K/CMM (10/03/18 3:45 PM) (10/02/18 10:45 AM) Eosinophils # [0.0-0.5 K/CMM] 0.1 K/CMM 0.1 K/CMM (10/03/18 3:45 PM) (10/02/18 10:45 AM) PT [12.0-14.7 seconds] 13.8 seconds 12.7 seconds (10/03/18 3:45 PM) (10/02/18 10:45 AM) INR [0.85-1.17] 1.08 0.97 (10/03/18 3:45 PM) (10/02/18 10:45 AM) PTT [22.9-35.8 seconds] 32.4 seconds 29.4 seconds (10/03/18 3:45 PM) (10/02/18 10:45 AM) Immunizations No data available for this section Procedures Procedure Date Related Diagnosis Body Site Status Appendectomy Completed Cholecystectomy Completed Gastric bypass operation Completed Partial hysterectomy Completed Social History Social History Type Response Substance Abuse Use: None. Employment/School Status: Employed. 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 Alcohol Current, Type Wine. Frequency: 1-2 times [...]
[2018-10-12] MEDS ORDERED: CYCLOBENZAPRINE 10 MG TAB ONE (07:48)
[2018-10-12] MEDS ORDERED: IBUPROFEN 200 MG TAB PO ONE (07:49)
[2018-10-12] MEDS ORDERED: MORPHINE 4 MG/ML SYR ONE (07:49)
[2018-10-12] MEDS ORDERED: IBUPROFEN 400 MG TAB ONE (07:49)
[2018-10-12] MEDS ORDERED: ONDANSETRON 4 MG (ODT) TAB ONE (07:49)
--- NOTE | 2018-10-12 08:18 | ER ---
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 She has also had a few dizzy spells. Transition of care: patient was not received from another setting of care. Onset of symptoms was October 10, 2018. Risk Assessment: Do you want to hurt yourself or someone else? Patient reports no desire to harm self or others. Initial Sepsis Screen: Does the patient meet any 2 criteria? No. Patient's initial sepsis screen is negative. Does the patient have a suspected source of infection? No. Patient's initial sepsis screen is negative. Care prior to arrival: None. 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 - Social history:: Smoking status: Patient/guardian denies using tobacco, Patient/guardian denies using alcohol, street drugs. - Ebola Screening: : No symptoms or risks identified at this time. Screenin:45 Abuse screen: Denies threats or abuse. Denies injuries from another. Nutritional sv screening: No deficits noted. Tuberculosis screening: No symptoms or risk factors identified. Fall Risk None identified. Assessment: 07:46 General: Appears in no apparent distress. uncomfortable, well developed, Behavior is sv calm, cooperative, appropriate for age. Pain: Complains of pain in right leg and left leg Pain currently is 5 out of 10 on a pain scale. Neuro: Level of Consciousness is awake, alert, obeys commands, Oriented to person, place, time, situation, Gait is steady. Respiratory: Respiratory effort is even, unlabored, Respiratory pattern is regular, symmetrical. GI: Reports nausea. Derm: Skin is pink, warm \\T\\ dry. 08:25 Reassessment: Patient appears in no apparent distress at this time. Patient and/or sv family updated on plan of care and expected duration. Pain level reassessed. Patient is alert, oriented x 3, equal unlabored respirations, skin warm/dry/pink. Patient states symptoms have improved. Vital Signs: 07:11 BP 134 / 91; Pulse 81; Resp 16 S; Temp 98.6(O); Pulse Ox 98% on R/A; Weight 71.67 kg bb (R); Height 5 ft. 3 in. (160.02 cm) (R); Pain 5/10; 07:47 BP 124 / 79; Pulse 73; Resp 16; Pulse Ox 98% ; sv 07:11 Body Mass Index 27.99 (71.67 kg, 160.02 cm) bb ED Course: 06:50 Patient arrived in ED. am2 06:50 Victor M Meehan MD is Private Physician. am2 06:57 Maximo Valdez [facility] is [facility] pm1 06:57 Vickey Cevallos MD is Attending Physician. pm1 07:07 Triage completed. bb 07:11 Arm band placed on Patient placed in an exam room, on a stretcher, on pulse oximetry. bb Family accompanied patient. 07:35 Graciela Hobbs RN is Primary Nurse. sv 07:45 Patient has correct armband on for positive identification. Bed in low position. Call sv light in reach. Adult w/ patient. Door closed. Head of bed elevated. 08:10 Awaiting disposition. sv 08:25 No provider procedures requiring assistance completed. Patient did not have IV access sv during this emergency room visit. Administered Medications: 07:45 Drug: morphine 4 mg Route: IM; Site: right gluteus; sv 08:10 Follow up: Response: No adverse reaction; No change in condition sv 07:45 Drug: Zofran 4 mg Route: PO; sv 08:10 Follow up: Response: No adverse reaction; Marked relief of symptoms; Nausea is decreasedsv 08:09 Drug: Ibuprofen 600 mg Route: PO; sv 08:26 Follow up: Response: No adverse reaction sv 08:10 Drug: Flexeril 10 mg Route: PO; sv 08:26 Follow up: Response: No adverse reaction sv Outcome: 08:17 Discharge ordered by MD. pm1 08:26 Discharged to home ambulatory, with family. sv 08:26 Condition: stable 08:26 Discharge instructions given to patient, family, Instructed on discharge instructions, follow up and referral plans. medication usage, Demonstrated understanding of instructions, follow-up care, medications, Prescriptions given X 1. 08:26 Patient left the ED. sv Signatures: Graciela Hobbs RN RN sv Ballard, Brenda, RN RN bb Marinas, Patrick, KAREN NURSING CARE PARTNER pm1 Karen Garcia am
--- NOTE | 2018-10-12 08:18 | EDPHYS ---
Physician Documentation [facility] Name: Ila Schreiber Age: 48 yrs Sex: Female : 1970 Arrival Date: 10/12/2018 Time: 06:50 Bed 5 Private MD: Victor M Meehan ED Physician Vickey Cevallos HPI: 10/12 08:05 This 48 yrs old Female presents to ER via Ambulatory with complaints of Left pm1 leg muscle cramps. 08:05 The patient presents with pain that is acute. The symptoms are located in the Left pm1 hamstring area radiating from left hip. The problem was sustained from unknown cause. Onset: The symptoms/episode began/occurred 2 day(s) ago. Modifying factors: The patient symptoms are alleviated by rest, the patient symptoms are aggravated by moving left leg. Associated signs and symptoms: Pertinent negatives: abdominal pain, chest pain, dysuria, fever, incontinence, numbness, tingling, urinary retention. Severity of symptoms:. The patient has experienced a previous episode, approximately 2 years ago, low back pain. The patient has been recently seen by a physician: with different complaint(s), surgical removal of pineal cyst . 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 - Social history:: Smoking status: Patient/guardian denies using tobacco, Patient/guardian denies using alcohol, street drugs. - Ebola Screening: : No symptoms or risks identified at this time. ROS: 08:05 Constitutional: Negative for fever, chills, and weight loss, Eyes: Negative for injury, pm1 pain, redness, and discharge, ENT: Negative for injury, pain, and discharge, Neck: Negative for injury, pain, and swelling, Cardiovascular: Negative for chest pain, palpitations, and edema, Respiratory: Negative for shortness of breath, cough, wheezing, and pleuritic chest pain, Abdomen/GI: Negative for abdominal pain, nausea, vomiting, diarrhea, and constipation, Back: Negative for injury and pain, : Negative for injury, bleeding, discharge, and swelling. 08:05 Skin: Negative for injury, rash, and discoloration, Neuro: Negative for headache, weakness, numbness, tingling, and seizure. 08:05 MS/extremity: Positive for pain, cramping sensation to left hamstring, Negative for decreased range of motion, deformity. Exam: 08:05 Constitutional: This is a well developed, well nourished patient who is awake, alert, pm1 and in no acute distress. Head/Face: Normocephalic, atraumatic. Neck: Trachea midline, no thyromegaly or masses palpated, and no cervical lymphadenopathy. Supple, full range of motion without nuchal rigidity, or vertebral point tenderness. No Meningismus. Chest/axilla: Normal chest wall appearance and motion. Nontender with no deformity. No lesions are appreciated. Cardiovascular: Regular rate and rhythm with a normal S1 and S2. No gallops, murmurs, or rubs. Normal PMI, no JVD. No pulse deficits. Respiratory: Lungs have equal breath sounds bilaterally, clear to auscultation and percussion. No rales, rhonchi or wheezes noted. No increased work of breathing, no retractions or nasal flaring. Abdomen/GI: Soft, non-tender, with normal bowel sounds. No distension or tympany. No guarding or rebound. No evidence of tenderness throughout. Back: No spinal tenderness. No costovertebral tenderness. Full range of motion. Skin: Warm, dry with normal turgor. Normal color with no rashes, no lesions, and no evidence of cellulitis. 08:05 Musculoskeletal/extremity: Extremities: all appear grossly normal, with no appreciated pain with palpation, grossly normal except: Pain to left hamstring area with passive left leg raise, Circulation is intact in all extremities. Sensation intact. 08:05 Neuro: Sensation: is normal, no obvious gross deficits, Gait: is steady, at a normal pace, without difficulty. Vital Signs: 07:11 BP 134 / 91; Pulse 81; Resp 16 S; Temp 98.6(O); Pulse Ox 98% on R/A; Weight 71.67 kg bb (R); Height 5 ft. 3 in. (160.02 cm) (R); Pain 5/10; 07:47 BP 124 / 79; Pulse 73; Resp 16; Pulse Ox 98% ; sv 07:11 Body Mass Index 27.99 (71.67 kg, 160.02 cm) bb MDM: 06:57 Patient medically screened. jalen 08:04 Data reviewed: vital signs. Data interpreted: Pulse oximetry: on room air is 98 %. pm1 Interpretation: normal. 08:04 Counseling: I had a detailed discussion with the patient and/or guardian regarding: the pm1 historical points, exam findings, and any diagnostic results supporting the discharge/admit diagnosis, the need for outpatient follow up, to return to the emergency department if symptoms worsen or persist or if there are any questions or concerns that arise at home. Administered Medications: 07:45 Drug: morphine 4 mg Route: IM; Site: right gluteus; sv 08:10 Follow up: Response: No adverse reaction; No change in condition sv 07:45 Drug: Zofran 4 mg Route: PO; sv 08:10 Follow up: Response: No adverse reaction; Marked relief of symptoms; Nausea is decreasedsv 08:09 Drug: Ibuprofen 600 mg Route: PO; sv 08:26 Follow up: Response: No adverse reaction sv 08:10 Drug: Flexeril 10 mg Route: PO; sv 08:26 Follow up: Response: No adverse reaction sv Disposition: 12:24 Co-signature as Attending Physician, Vickey Cevallos MD I agree with the assessment and [facility] plan of care. Disposition: 10/12/18 08:17 Discharged to Home. Impression: Sciatica, left side, Other muscle spasm. - Condition is Stable. - Discharge Instructions: Sciatica, Muscle Cramps and Spasms, [id number]. - Prescriptions for Skelaxin 800 mg Oral Tablet - take 1 tablet by ORAL route every 8 hours As needed; 30 tablet. - Medication Reconciliation Form, Thank You Letter, Antibiotic Education, Prescription Opioid Use form. - Follow up: Emergency Department; When: As needed; Reason: Worsening of condition. Follow up: Private Physician; When: 2 - 3 days; Reason: Recheck today's complaints, Continuance of care, Re-evaluation by your physician. - Problem is new. - Symptoms have improved. Signatures: Graciela Hobbs, RN RN Vickey Dc MD MD cha Ballard, Brenda, RN RN Maximo Peres, N[employer] TRUCK DRIVER N[employer] DRIVER pm1 Corrections: (The following items were deleted from the chart) 08:26 08:17 10/12/2018 08:17 Discharged to Home. Impression: Sciatica, left side; Other sv muscle spasm. Condition is Stable. Discharge Instructions: Sciatica, Muscle Cramps and Spasms, [id number]. Prescriptions for Skelaxin 800 mg Oral Tablet - take 1 tablet by ORAL route every 8 hours As needed; 30 tablet. and Forms are Medication Reconciliation Form, Thank You Letter, Antibiotic Education, Prescription Opioid Use. Follow up: Emergency Department; When: As needed; Reason: Worsening of condition. Follow up: Private Physician; When: 2 - 3 days; Reason: Recheck today's complaints, Continuance of care, Re-evaluation by your physician. Problem is new. Symptoms have improved. pm1
== END 2018-10-12 08:26 | disposition home or self-care (01) ==
LOC: ER 06:49
DX: M54.32 Sciatica, left side (principal)
CPT/HCPCS: 96372; 99283

== ENCOUNTER 2018-11-07 15:56 | Emergency (ER) | payer OTHER ==
--- OUTSIDE RECORDS SUMMARY | 2018-11-07 16:02 | XMS REPORT | Continuity of Care Document ---
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 Aortic Active 09/04/19 Problem 09/24/2017 no trx- [facility],Surgic regurgitation<s 08 monitored by al up>1</sup> cardio [facility] Paresthesia of 11/04/2018 [facility] skin Anesthesia of 11/04/2018 [facility] skin Rheumatoid 11/04/2018 [facility] arthritis, unspecified Bariatric 11/04/2018 [facility] surgery status Cardiac murmur, 11/04/2018 [facility] unspecified Pineal gland Resolved Problem 11/04/2018 [facility] Fatigue Active Problem 11/04/2018 [facility] Foot drop, Resolved Problem 11/04/2018 [facility] Headache Active Problem 11/04/2018 [facility] H/O: stroke Resolved Problem 11/04/2018 [facility] Paresthesia Active Problem 11/04/2018 [facility] Rheumatoid Active Problem 11/04/2018 [facility] arthritis, Neuro, erosive, [place] seronegative Barretts Active Problem 09/24/2017 [facility]Surgic esophagus al [facility] Coccydynia Active Problem 09/24/2017 [facility]Surgic al [facility] Depression Active Problem 09/24/2017 [facility]Surgic al [facility] GERD - Active Problem 09/24/2017 [facility]Surgic Gastro-esophage al pa reflux [facility] RA - Rheumatoid Active Problem 09/24/2017 [facility] arthritis UNSPECIFIED Active [facility] SYMPTOMS AND [place] SIGNS INVOLVING Medications Medication Details Route Status Patient Ordering Order Source Instructions Provider Date heparin sodium, 5,000 unit, 1 No Longer [place] porcine 2500 mL, Route: Active 2019 Medical UNT/ML Injectable SUB-Q, Drug Center Solution form: INJ, Q8H-01, Dosing Weight 71.818, kg, Start date: 10/04/18 18:00:00 INSIDE CHANNEL ACCOUNT MANAGER, Duration: 30 day, Stop date: 11/03/18 17:00:00 CSTNotes: porcine heparin Ondansetron 4 MG 4 mg=1 tab, PO, Active [place] Oral Tablet TID, PRN Nausea 2019 Medical [Zofran] & Vomiting, # Center 12 tab, 0 Refill(s) tramadol 50 mg=1 tab, Active [place] hydrochloride 50 PO, Q4H, PRN 2019 Medical MG Oral Tablet Pain Score 1-3, Center X 14 day, # 50 tab, 0 Refill(s) sennosides, [facility] 8.6 mg=1 tab, Active [place] 8.6 MG Oral PO, Q12H, X 14 2019 Medical Tablet day, # 28 tab, Center 0 Refill(s) Promethazine 12.5 mg=1 tab, Active [place] Hydrochloride PO, Q6H, PRN 2019 Medical 12.5 MG Oral Nausea & Center Tablet Vomiting, # 12 [Phenergan] tab, 0 Refill(s) Acetaminophen 325 1 tab, PO, Q4H, Active [place] MG / Hydrocodone PRN Pain Score 2019 Medical Bitartrate 10 MG 4-6, X 14 day, Center Oral Tablet # 60 tab, 0 [[place] 10/325] Refill(s) Docusate Sodium 100 mg=1 cap, Active [place] 100 MG Oral PO, Q12H, # 28 2019 Medical Capsule cap, 0 Center Refill(s) Omeprazole 40 mg, Route: No Longer [place] PO, Daily, Active 2019 Medical Dosing Weight Center 71.818, kg, Start date: 10/04/18 9:00:00 INSIDE CHANNEL ACCOUNT MANAGER, Duration: 30 day, Stop date: 11/02/18 9:00:00 INSIDE CHANNEL ACCOUNT MANAGER Prozac 20 mg, 1 cap, No Longer [place] Route: PO, Drug Active 2019 Medical form: CAP, Center Daily, Dosing Weight 71.818, kg, Start date: 10/04/18 9:00:00 INSIDE CHANNEL ACCOUNT MANAGER, Duration: 30 day, Stop date: 11/02/18 9:00:00 CSTNotes: (Same as: Prozac, [place]) Protonix 40 mg, 1 tab, No Longer [place] Route: PO, Drug Active 2019 Medical form: ECTAB, Center Before Breakfast, Start date: 10/04/18 7:30:00 INSIDE CHANNEL ACCOUNT MANAGER, Duration: 30 day, Stop date: 11/02/18 7:30:00 CSTNotes: Tablet should not be chewed or crushed. (Same as: Protonix) Saline Flush 0.9% 10 ml, Route: No Longer [place] IVP, Drug Form: Active 2019 Medical INJ, Dosing Center Weight 71.818, kg, Q12H, Start date: 10/03/18 21:00:00 INSIDE CHANNEL ACCOUNT MANAGER, Duration: 30 day, Stop date: 11/02/18 9:00:00 CSTNotes: (Same as: BD Posiflush) sennosides, [facility] 8.6 mg, 1 tab, No Longer [place] Route: PO, Drug Active 2018 Medical Form: TAB, Center Dosing Weight 71.818, kg, Q12H, Start date: 10/03/18 21:00:00 INSIDE CHANNEL ACCOUNT MANAGER, Duration: 30 day, Stop date: 11/02/18 9:00:00 CSTNotes: (Same as: Senokot) Docusate Sodium 100 mg, 1 cap, No Longer [place] 100 MG Oral Route: PO, Drug Active 2018 Medical Capsule form: CAP, Center Q12H, Dosing Weight 71.818, kg, Start date: 10/03/18 21:00:00 INSIDE CHANNEL ACCOUNT MANAGER, Duration: 30 day, Stop date: 11/02/18 9:00:00 CSTNotes: (Same as: Colace) (Do Not Crush) ceFAZolin (SCIP) 2 gm, 20 mL, No Longer [place] Route: IVPB, Active 2019 Medical Drug form: Center SOLN, ABXQ8H, Dosing Weight 71.818, kg, Start date: 10/03/18 21:00:00 INSIDE CHANNEL ACCOUNT MANAGER, Duration: 24 hr, Stop date: 10/04/18 13:00:00 INSIDE CHANNEL ACCOUNT MANAGER, ABX Indication: Surgical ProphylaxisNote s: (Same as Ancef) gabapentin 300 mg, 1 cap, No Longer [facility] Route: PO, Drug Active 2018 Medical form: CAP, TID, Center Dosing Weight 71.818, kg, Start date: 10/03/18 17:00:00 INSIDE CHANNEL ACCOUNT MANAGER, Duration: 30 day, Stop date: 11/02/18 13:00:00 CSTNotes: (Same as: Neurontin) Hydromorphone 0.5 mg, Route: Inactive [facility] IVP, ONCE, 2018 Medical Dosing Weight Center 71.818, kg, PRN Pain Score 7-10, Start date: 10/03/18 16:26:00 INSIDE CHANNEL ACCOUNT MANAGER Cefazolin 2 gm, 20 mL, Inactive [facility] Route: IVPB, 2018 Medical Drug form: [place] SOLN, Q8H, Dosing Weight 71.818, kg, Start date: 10/03/18 16:00:00 INSIDE CHANNEL ACCOUNT MANAGER, Duration: 24 hr, Stop date: 10/04/18 8:00:00 INSIDE CHANNEL ACCOUNT MANAGER, ABX Indication: Surgical ProphylaxisNote s: (Same as Ancef) sugammadex (ANES) Route: IV, Drug Inactive [facility] form: SOLN, 2019 Medical ONCE, Stop Center date: 10/03/18 16:00:00 INSIDE CHANNEL ACCOUNT MANAGER Diphenhydramine 12.5 mg, 0.25 Inactive [facility] mL, Route: IVP, 2018 Medical Drug form: INJ, Center Q6H, Dosing Weight 71.818, kg, PRN Itching, Start date: 10/03/18 15:55:00 INSIDE CHANNEL ACCOUNT MANAGER, Duration: 1 day, Stop date: 10/04/18 15:54:00 CSTNotes: (Same as: Benadryl) Naloxone 0.4 mg, 1 mL, Inactive [facility] Route: IVP, 2018 Medical Drug form: INJ, Center Q2MIN, Dosing Weight 71.818, kg, PRN Narcotic Reversal, Start date: 10/03/18 15:55:00 INSIDE CHANNEL ACCOUNT MANAGER, Duration: 8 doses or times, Stop date: 10/04/18 0:00:00 CSTNotes: Same as Narcan Albuterol 0.83 2.49 mg, 3 mL, Inactive [place] MG/ML Inhalant Route: NEB, 2019 Medical Solution Drug form: Center SOLN, Q20Min, Dosing Weight 71.818, kg, PRN Wheezing, Priority: STAT, Start date: 10/03/18 15:55:00 INSIDE CHANNEL ACCOUNT MANAGER, Stop date: 10/04/18 0:00:00 CSTNotes: SEE RT DOCUMENTATION (Same as: Proventil) Flumazenil 0.2 mg, 2 mL, Inactive [place] Route: IVP, 2018 Medical Drug form: INJ, Center PRN, Dosing Weight 71.818, kg, PRN Benzodiazepine Reversal, Initial dose, Start date: 10/03/18 15:55:00 INSIDE CHANNEL ACCOUNT MANAGER, Stop date: 10/04/18 0:00:00 CSTNotes: (Same as: Romazicon) Fentanyl 50 microgram, Inactive [place] Route: IVP, 2018 Medical Q5Min, Dosing Center Weight 71.818, kg, PRN Pain Score 7-10, Priority: Routine, Start date: 10/03/18 15:55:00 INSIDE CHANNEL ACCOUNT MANAGER, Duration: 2 doses or times, Stop date: Limited # of times Promethazine 6.25 mg, 0.25 Inactive [place] mL, Route: 2019 Medical IVPB, Drug Center form: INJ, ONCE, Dosing Weight 71.818, kg, PRN Nausea & Vomiting, Start date: 10/03/18 15:55:00 CSTNotes: Do not give IV push. (Same as: Phenergan) Ondansetron 4 mg, 2 mL, Inactive [place] Route: IVP, 2018 Medical Drug form: INJ, Center ONCE, Dosing Weight 71.818, kg, PRN Nausea & Vomiting, Start date: 10/03/18 15:55:00 CSTNotes: (Same as: Zofran) MEDICATION WASTE Product Size: 4 mg Product Wasted: ___ mg Nicardipine 40 mg, 200 mL, No Longer [place] Rate: Titrate, Active 2019 Medical Start Dose: 5 Center mg/hr, Titration: 2.5 mg/hr every 15 minutes, Goal(s): SBP 90-140, Max Dose: 15 mg/hr, Route: IV, Dosing Weight 71.818 kg, Total Volume: 200, Start date: 10/03/18 15:55:00 INSIDE CHANNEL ACCOUNT MANAGER, Duration: 30 day, Stop date: 0...Notes: Same as: Cardene Tylenol 650 mg, 2 tab, No Longer [place] Route: PO, Drug Active 2019 Medical form: TAB, Q6H, Center Dosing Weight 71.818, kg, PRN Pain 1-3/Temp > 100.4 F, Start date: 10/03/18 15:31:00 INSIDE CHANNEL ACCOUNT MANAGER, Duration: 30 day, Stop date: 11/02/18 15:30:00 CSTNotes: Do not exceed 4 gm/day. (Same as: Tylenol) tramadol 50 mg, 1 tab, No Longer [place] hydrochloride 50 Route: PO, Drug Active 2018 Medical MG Oral Tablet form: TAB, Q4H, Center Dosing Weight 71.818, kg, PRN Pain Score 1-3, Start date: 10/03/18 15:31:00 INSIDE CHANNEL ACCOUNT MANAGER, Duration: 30 day, Stop date: 11/02/18 15:30:00 CSTNotes: Not to exceed 400mg/day. (Same As: Ultram) Acetaminophen 325 1 tab, Route: No Longer [place] MG / Hydrocodone PO, Drug Form: Active 2018 Medical Bitartrate 10 MG TAB, Dosing Center Oral Tablet Weight 71.818, [[place] 10/325] kg, Q4H, PRN Pain Score 1-3, Start date: 10/03/18 15:31:00 INSIDE CHANNEL ACCOUNT MANAGER, Duration: 30 day, Stop date: 11/02/18 15:30:00 CSTNotes: Do not exceed 4gm/day of acetaminophen. (Same as: [place] 325/10) Dilaudid 0.2 mg, 0.1 mL, No Longer [place] Route: IVP, Active 2018 Medical Drug form: INJ, Center Q4H, Dosing Weight 71.818, kg, PRN Pain Score 7-10, Start date: 10/03/18 15:31:00 INSIDE CHANNEL ACCOUNT MANAGER, Duration: 30 day, Stop date: 11/02/18 15:30:00 CSTNotes: Same as Dilaudid phenol 1 spray, Route: No Longer [place] TOP, Daily, Active 2019 Medical Drug form: Center SPRY, PRN Sore Throat, Start date: 10/03/18 15:31:00 INSIDE CHANNEL ACCOUNT MANAGER, Duration: 30 day, Stop date: 11/02/18 15:30:00 CSTNotes: Chloraseptic [place] (Same as: Chloraseptic, Sore Throat [place]) WASTE: F/P - Black; E - Municipal Trash Bin Saline Flush 0.9% 10 ml, Route: No Longer [place] IVP, Drug Form: Active 2019 Medical INJ, Dosing Center Weight 71.818, kg, PRN, PRN Line Flush, Start date: 10/03/18 15:30:00 INSIDE CHANNEL ACCOUNT MANAGER, Duration: 30 day, Stop date: 11/02/18 15:29:00 CSTNotes: (Same as: BD Posiflush) Bisacodyl 10 mg, 1 supp, No Longer [place] Route: CO, Drug Active 2019 Medical form: SUPP, Center Daily, Dosing Weight 71.818, kg, PRN Constipation, Start date: 10/03/18 15:30:00 INSIDE CHANNEL ACCOUNT MANAGER, Duration: 30 day, Stop date: 11/02/18 15:29:00 CSTNotes: (Same As: Dulcolax, [place]isco-Lax) Promethazine 12.5 mg, 0.5 No Longer [place] mL, Route: Active 2019 Medical IVPB, Drug Center form: INJ, Q6H, Dosing Weight 71.818, kg, PRN Nausea & Vomiting, Start date: 10/03/18 15:30:00 INSIDE CHANNEL ACCOUNT MANAGER, Duration: 30 day, Stop date: 11/02/18 15:29:00 CSTNotes: Do not give IV push. (Same as: Phenergan) Ondansetron 4 mg, 2 mL, No Longer [place] Route: IVP, Active 2019 Medical Drug form: INJ, Center Q8H, Dosing Weight 71.818, kg, PRN Nausea & Vomiting, Start date: 10/03/18 15:30:00 INSIDE CHANNEL ACCOUNT MANAGER, Duration: 30 day, Stop date: 11/02/18 15:29:00 CSTNotes: (Same as: Zofran) MEDICATION WASTE Product Size: 4 mg Product Wasted: ___ mg Metoclopramide 10 mg, 2 mL, No Longer [place] Route: IVP, Active 2018 Medical Drug form: INJ, Center Q6H, Dosing Weight 71.818, kg, PRN Nausea & Vomiting, Start date: 10/03/18 15:30:00 INSIDE CHANNEL ACCOUNT MANAGER, Duration: 30 day, Stop date: 11/02/18 15:29:00 CSTNotes: (Same as: Reglan) Sodium Chloride 1,000 mL, Rate: No Longer [place] 0.9% IV 1,000 mL 75 ml/hr, Active 2018 Medical Infuse over: Center 13.3 hr, Route: IV, Dosing Weight 71.818 kg, Total Volume: 1,000, Start date: 10/03/18 15:30:00 INSIDE CHANNEL ACCOUNT MANAGER, Duration: 30 day, Stop date: 11/02/18 15:29:00 INSIDE CHANNEL ACCOUNT MANAGER, 1.81, m2 ondansetron Route: IV, Drug Inactive [place] (ANES) form: INJ, 2018 Medical ONCE, Stop Center date: 10/03/18 15:22:00 INSIDE CHANNEL ACCOUNT MANAGER sugammadex 200 mg, 2 mL, No Longer [place] Route: IV, Drug Active 2018 Medical form: SOLN, Center ONCALL, Start date: 10/03/18 15:15:00 INSIDE CHANNEL ACCOUNT MANAGER, Duration: 5 minutes, Stop date: 10/03/18 15:19:00 CSTNotes: (Same as: Luciaion) remifentanil Route: IV, Drug Inactive [place] (ANES) form: INJ, 2018 Medical ONCE, Stop Center date: 10/03/18 14:37:00 INSIDE CHANNEL ACCOUNT MANAGER dexamethasone Route: IV, Drug Inactive [place] (ANES) form: INJ, 2018 Medical ONCE, Stop Center date: 10/03/18 14:17:00 INSIDE CHANNEL ACCOUNT MANAGER fentaNYL (ANES) Route: IV, Drug Inactive [place] form: INJ, 2018 Medical ONCE, Stop Center date: 10/03/18 14:17:00 INSIDE CHANNEL ACCOUNT MANAGER rocuronium (ANES) Route: IV, Drug Inactive [place] form: INJ, 2019 Medical ONCE, Stop Center date: 10/03/18 14:17:00 INSIDE CHANNEL ACCOUNT MANAGER lidocaine (ANES) Route: IV, Drug Inactive [place] form: INJ, 2018 Medical ONCE, Stop Center date: 10/03/18 14:17:00 INSIDE CHANNEL ACCOUNT MANAGER propofol (ANES) Route: IV, Drug Inactive [place] form: INJ, 2018 Medical ONCE, Stop Center date: 10/03/18 14:17:00 INSIDE CHANNEL ACCOUNT MANAGER ceFAZolin (ANES) Route: IV, Drug Inactive [place] form: INJ, 2018 Medical ONCE, Stop Center date: 10/03/18 13:52:00 INSIDE CHANNEL ACCOUNT MANAGER mannitol (ANES) Route: IV, Drug Inactive [place] 200 mg form: INJ, 2018 Medical Start date: [place] 10/03/18 12:40:00 INSIDE CHANNEL ACCOUNT MANAGER, Stop date: 10/03/18 13:40:00 INSIDE CHANNEL ACCOUNT MANAGER remifentanil Route: IV, Drug Inactive [place] (ANES) 1 mg form: INJ, 2018 Medical Start date: [place] 10/03/18 12:35:00 INSIDE CHANNEL ACCOUNT MANAGER, Stop date: 10/03/18 13:35:00 INSIDE CHANNEL ACCOUNT MANAGER Sodium Chloride Route: IV, Drug Inactive [place] 0.9% IV (ANES) form: INJ, 2018 Medical 100 mL + Start date: [place] dexmedetomidine 10/03/18 (ANES) 200 12:35:00 INSIDE CHANNEL ACCOUNT MANAGER, microgram Stop date: 10/03/18 13:35:00 INSIDE CHANNEL ACCOUNT MANAGER Sodium Chloride Route: IV, Inactive [place] 0.9% IV (ANES) Total Volume: 2019 Medical 500 mL 500, Start Center date: 10/03/18 12:35:00 INSIDE CHANNEL ACCOUNT MANAGER, Stop date: 10/03/18 13:35:00 INSIDE CHANNEL ACCOUNT MANAGER propofol (ANES) Route: IV, Drug Inactive [place] 10 mg form: INJ, 2018 Medical Start date: [place] 10/03/18 12:32:00 INSIDE CHANNEL ACCOUNT MANAGER, Stop date: 10/03/18 13:32:00 INSIDE CHANNEL ACCOUNT MANAGER Lactated Ringers Route: IV, Inactive [place] Injection IV Total Volume: 2018 Medical (ANES) 1000 mL 1,000, Start Center date: 10/03/18 12:16:00 INSIDE CHANNEL ACCOUNT MANAGER, Stop date: 10/03/18 13:16:00 INSIDE CHANNEL ACCOUNT MANAGER Emend 40 mg, 1 cap, Inactive [place] Route: PO, Drug 2018 Medical form: CAP, PRE Center OP, Start date: 10/03/18 0:00:00 INSIDE CHANNEL ACCOUNT MANAGER, Duration: 1 day, Stop date: 10/03/18 23:59:00 CSTNotes: Same as: Emend restricted to the Hematology/Onco logy service for high and moderate emetogenic regimen according to ASCO Guidelines Passthrough Only for Chemotherapy-In duced nausea & vomiting ceFAZolin + 2 gm, Route: No Longer [place] sterile water 20 IV, PRE OP, Active 2019 Medical mL Start date: Center 10/03/18 0:00:00 INSIDE CHANNEL ACCOUNT MANAGER, Duration: 1 day, Stop date: 10/03/18 23:59:00 INSIDE CHANNEL ACCOUNT MANAGER, ABX Indication: Surgical ProphylaxisNote s: (Same As: AncAmy colbert) MEDICATION WASTE Product Size: 1000 mg Product Wasted: ___ mg Tramadol 50 mg, 1 tab, Inactive Route: PO, Drug 2017 [place] form: TAB, Q4H, Dosing Weight 77.017, kg, PRN Pain Score 4-6, Start date: 04/17/18 3:50:00 CDT, Duration: 30 day, Stop date: 05/17/18 3:49:00 CDTNotes: Not to exceed 400mg/day. (Same As: Ultram) Tramadol 50 mg, 1 tab, Inactive Route: PO, Drug 2017 [place] form: TAB, Q4H, Dosing Weight 77.017, kg, Start date: 04/17/18 0:00:00 CDT, Duration: 30 day, Stop date: 05/16/18 20:00:00 CDTNotes: Not to exceed 400mg/day. (Same As: Ultram) gabapentin 300 mg, 1 cap, No Longer Route: PO, Drug Active 2017 [place] form: CAP, TID, Dosing Weight 77.017, kg, Start date: 04/16/18 22:41:00 CDT, Duration: 30 day, Stop date: 05/16/18 17:00:00 CDTNotes: (Same as: Neurontin) Saline Flush 0.9% 10 ml, Route: No Longer IVP, Drug Form: Active 2018 [place] INJ, Dosing Weight 77, kg, Q12H, Start date: 04/16/18 21:00:00 CDT, Duration: 30 day, Stop date: 05/16/18 9:00:00 CDTNotes: (Same as: BD Posiflush) atorvastatin 80 mg, 2 tab, No Longer Route: PO, Drug Active 2018 [place] form: TAB, Bedtime, Dosing Weight 77, kg, Start date: 04/16/18 21:00:00 CDT, Duration: 30 day, Stop date: 05/15/18 21:00:00 CDTNotes: (Same as: Lipitor) Fluoxetine 20 MG 20 mg=1 cap, Active Oral Capsule PO, Daily, # 30 2018 [place] [Prozac] cap, 0 Refill(s) Omeprazole 40 mg, PO, Active Daily, 0 2018 [place] Refill(s) tramadol 50 mg=1 tab, No Longer hydrochloride 50 PO, Q4H, PRN Active 2018 [place] MG Oral Tablet Pain Score 4-6, 0 Refill(s) gabapentin 300 MG 300 mg=1 cap, No Longer Oral Capsule PO, TID, # 90 Active 2018 [place] cap, 0 Refill(s) Aspirin 81 MG 81 mg, 1 tab, No Longer Enteric Coated Route: PO, Drug Active 2018 [place] Tablet form: ECTAB, Q24H, Dosing Weight 77, kg, Start date: 04/16/18 17:00:00 CDT, Duration: 30 day, Stop date: 05/15/18 17:00:00 CDTNotes: Do not crush or chew. (Same As: Ecotrin) Saline Flush 0.9% 10 ml, Route: No Longer IVP, Drug Form: Active 2018 [place] INJ, Dosing Weight 77, kg, PRN, PRN Line Flush, Start date: 04/16/18 16:50:00 CDT, Duration: 30 day, Stop date: 05/16/18 16:49:00 CDTNotes: (Same as: BD Posiflush) Tramadol 50 mg, PO, Q8H, No Longer 0 Refill(s) Active 2017 [place] gabapentin 300 mg, PO, Active TID, 0 2017 [place] Refill(s) Omeprazole PO, Daily, 0 No Longer Refill(s) Active 2017 [place] Saline Flush 0.9% 10 mL, Route: No Longer IVP, Drug Form: Active 2018 [place] INJ, Dosing Weight 77, kg, PRN, PRN Line Flush, Start date: 04/16/18 12:25:00 CDT, Duration: 30 day, Stop date: 05/16/18 12:24:00 CDTNotes: (Same as: BD Posiflush) Misc Medication 1,180 mL, Inactive 09/22/ [facility] Soln-IV, IV, 2017 Once, first dose 09/22/17 8:35:00 INSIDE CHANNEL ACCOUNT MANAGER, stop date 09/22/17 8:35:00 INSIDE CHANNEL ACCOUNT MANAGER propofol 50 mg=5 mL, Inactive 09/22/ [facility] Emulsion, IV, 2017 Once, first dose 09/22/17 7:55:00 INSIDE CHANNEL ACCOUNT MANAGER, stop date 09/22/17 7:55:00 INSIDE CHANNEL ACCOUNT MANAGER propofol 50 mg=5 mL, Inactive 09/22/ [facility] Emulsion, IV, 2017 Once, first dose 09/22/17 7:51:00 INSIDE CHANNEL ACCOUNT MANAGER, stop date 09/22/17 7:51:00 INSIDE CHANNEL ACCOUNT MANAGER propofol 50 mg=5 mL, Inactive 09/22/ [facility] Emulsion, IV, 2017 Once, first dose 09/22/17 7:47:00 INSIDE CHANNEL ACCOUNT MANAGER, stop date 09/22/17 7:47:00 INSIDE CHANNEL ACCOUNT MANAGER propofol 50 mg=5 mL, Inactive 09/22/ [facility] Emulsion, IV, 2017 Once, first dose 09/22/17 7:43:00 INSIDE CHANNEL ACCOUNT MANAGER, stop date 09/22/17 7:43:00 INSIDE CHANNEL ACCOUNT MANAGER propofol 150 mg=15 mL, Inactive 09/22/ [facility] Emulsion, IV, 2017 Once, first dose 09/22/17 7:38:00 INSIDE CHANNEL ACCOUNT MANAGER, stop date 09/22/17 7:38:00 INSIDE CHANNEL ACCOUNT MANAGER lidocaine 5 mL, Inactive 09/22/ [facility] Injection, IV, 2017 Once, first dose 09/22/17 7:38:00 INSIDE CHANNEL ACCOUNT MANAGER, stop date 09/22/17 7:38:00 INSIDE CHANNEL ACCOUNT MANAGER Lidocaine 2% 0.2 0.2 mL, Inactive 09/22/ [facility] mL IV Start Injection, 2018 [[facility]] Subcutaneous, Once PRN for other (see comment), first dose 09/22/17 7:03:00 INSIDE CHANNEL ACCOUNT MANAGER LR 1,000 mL 1,000 mL, IV, Inactive 09/22/ [facility] 30 mL/hr, start 201709/22/17 7:03:00 INSIDE CHANNEL ACCOUNT MANAGER Humira 20 mg/0.4 =0.4 mL, Active 09/21/ [facility] mL subcutaneous Subcutaneous, 2018 kit q2wk, Rheumatoid Arthritis D3 1000 1,000 IntUnit, Active 09/21/ [facility] Oral, Daily, 2017 supplement methotrexate 15 15 mg=1 tabs, Active 09/21/ [facility] mg oral tablet Oral, qWeek, 2017 Rheumatoid Arthritis tramadol 50 mg=1 tabs, Active [facility] hydrochloride 50 Oral, As 2018 MG Oral Tablet Indicated, PRN for pain, PRN only, Rheumatoid arthritis folic acid 1 mg 1 mg=1 tabs, Active [facility] oral tablet Oral, Daily, 2017 supplement multivitamin 1 tab, Oral, Active 09/21/ [facility] Daily, 2017 supplement Vitamin B12 =1 tabs, SL, Active [facility] Methylcobalamin Daily, 2017 supplement Iron Chews 15 mg 30 mg=2 tabs, Active [facility] oral tablet, Oral, Daily, 2017 chewable supplement gabapentin 300 mg 300 mg=1 caps, Active [facility] oral capsule Oral, As 2018 Indicated, PRN pain, PRN only, Rheumatoid Arthritis meloxicam 7.5 mg 7.5 mg=1 tabs, Active 09/21/ [facility] oral tablet Oral, BID, 0 2017 Refill(s), Rheumatoid Arthritis Misc Medication 60 mL, Soln-IV, Inactive [place] 11/07/ Surgical IV, Once, first 2014 Specialty dose 11/07/14 Hospital 7:14:00 INSIDE CHANNEL ACCOUNT MANAGER, of [place] stop date [place] 11/07/14 7:14:00 INSIDE CHANNEL ACCOUNT MANAGER propofol 60 mg=6 mL, Inactive [place] 11/07/ Surgical Emulsion, IV, 2014 Specialty Once, first Hospital dose 11/07/14 of [place] 7:08:00 INSIDE CHANNEL ACCOUNT MANAGER, [place] stop date 11/07/14 7:08:00 INSIDE CHANNEL ACCOUNT MANAGER lidocaine 4 mL, Inactive [place] 11/07/ Surgical Injection, IV, 2014 Specialty Once, first Hospital dose 11/07/14 of [place] 7:04:00 INSIDE CHANNEL ACCOUNT MANAGER, [place] stop date 11/07/14 7:04:00 INSIDE CHANNEL ACCOUNT MANAGER propofol 160 mg=16 mL, Inactive [place] 11/07/ Surgical Emulsion, IV, 2014 Specialty Once, first Hospital dose 11/07/14 of [place] 7:04:00 INSIDE CHANNEL ACCOUNT MANAGER, [place] stop date 11/07/14 7:04:00 INSIDE CHANNEL ACCOUNT MANAGER Lidocaine 2% 0.2 0.2 mL, Inactive Brianna 11/07/ Surgical mL IV Start Injection, 2014 Specialty [[facility]] Subcutaneous, Hospital Once PRN for of [place] other (see Kirsty comment), first dose 11/07/14 6:19:00 INSIDE CHANNEL ACCOUNT MANAGER LR 1,000 mL 1,000 mL, IV, Inactive [place]anna 11/07/ Surgical 30 mL/hr, start 2014 Specialty date 11/07/14 Hospital 6:19:00 INSIDE CHANNEL ACCOUNT MANAGER of [place] Nexium 40 mg oral 40 mg=1 caps, No Longer 11/05/ [facility] delayed release Oral, Daily, 0 Active 2014 capsule Refill(s), [facility] CeleXA 20 mg oral 20 mg=1 tabs, No Longer 11/05/ [facility] tablet Oral, Daily, 0 Active 2014 Refill(s), [facility] Nexium 40 mg oral 40 mg=1 caps, Active 11/05/ Surgical delayed release Oral, Daily, 0 2014 Specialty capsule Refill(s), [facility] CeleXA 20 mg oral 20 mg=1 tabs, Active 11/05/ Surgical tablet Oral, Daily, 0 2014 Specialty Refill(s), [facility] depression of [place] Allergies, Adverse Reactions, Alerts Substance Category Reaction Severity Reaction Status Date Comments Source type Reported Immunizations Immunization Date Given Site Status Last Updated Comments Source Results Order Name Results Value Reference Date Interpretation Comments Source Range ELECTROLYTE AGAP 10.0 meq/L 10.0 - 10/03 [facility] ELECTROLYTE eGFR 109 10/03 Result Comment: The eGFR is calculated using the CKD-EPI formula. In most young, healthy individuals the eGFR will be > 90 mL/min/1.73m2. The eGFR declines with age. An eGFR of 60-89 may be normal in [facility] mL/min/1. some populations, particularly the elderly, for whom the CKD-EPI formula has not been extensively validated. Use of the eGFR is not recommended in the following populations: [address] Individuals with unstable creatinine concentrations, including [...] CO2 27 meq/L 24 - 32 10/[address] ELECTROLYTE Calcium Lvl 8.3 mg/dL 8.5 - 10.5 10/03 [facility]2018 [facility] ELECTROLYTE Potassium 4.0 meq/L 3.5 - 5.1 10/03 [facility] Lvl [facility] ELECTROLYTE Chloride Lvl 107 meq/L 95 - 109 10/[address] ELECTROLYTE Sodium Lvl 140 meq/L 135 - 145 10/03 [facility]2018 [facility] ELECTROLYTE Creatinine 0.61 mg/dL 0.50 - 10/03 [facility] Lvl 1.40 [facility] ELECTROLYTE Glucose Lvl 107 mg/dL 70 - 99 10/[address] ELECTROLYTE BUN 10 mg/dL 7 - 22 10/03 [facility]2018 [facility] HEMATOLOGY PT 13.8 s 12.0 - 10/03 [facility] 14.7 [facility] HEMATOLOGY PTT 32.4 s 22.9 - 10/03 [place] 35.8 [facility] HEMATOLOGY INR 1.08 0.85 - 10/03 [place] 1.17 [facility] HEMATOLOGY MCV 91.4 fL 80.0 - 10/03 [facility] 98.0 [facility] HEMATOLOGY MCH 31.4 pg 27.0 - 10/03 [facility] 31.0 [facility] HEMATOLOGY Hct 35.9 % 36.0 - 10/03 [place] 48.0 [facility] HEMATOLOGY MCHC 34.4 g/dL 32.0 - 10/03 [place] 36.0 [facility] HEMATOLOGY RBC 3.93 M/CMM 4.20 - 10/03 [place] 5.40 [facility] HEMATOLOGY Hgb 12.3 g/dL 12.0 - 10/03 [place] 16.0 [facility] HEMATOLOGY Platelet 184 K/CMM 133 - 450 10/03 [facility] HEMATOLOGY MPV 10.4 fL 7.4 - 10.4 10/03 [facility] HEMATOLOGY RDW 12.8 % 11.5 - 10/03 [facility] 14.5 [facility] HEMATOLOGY WBC 5.6 K/CMM 3.7 - 10.4 10/03 [facility] HEMATOLOGY Neutrophils 4.1 K/CMM 1.5 - 8.1 10/03 [facility] HEMATOLOGY Lymphocytes 1.1 K/CMM 1.0 - 5.5 10/03 [facility] HEMATOLOGY Monocytes # 0.3 K/CMM 0.0 - 0.8 10/03 [facility] HEMATOLOGY Eosinophils 0.1 K/CMM 0.0 - 0.5 10/03 [facility] HEMATOLOGY Eosinophils 1.3 % 0.0 - 4.0 10/03 [facility] HEMATOLOGY Basophils 0.7 % 0.0 - 1.0 10/03 [facility] HEMATOLOGY Lymphocytes 20.3 % 20.0 - 10/03 [place] 40.0 [facility] HEMATOLOGY Monocytes 5.0 % 2.0 - 12.0 10/03 [facility] HEMATOLOGY Segs 72.7 % 45.0 - 10/03 [facility] 75.0 [facility] BLOOD BANK ABO/Rh A POS 10/02 [facility] RESULTS [facility] BLOOD BANK Antibody Negative 10/02 [facility] RESULTS [facility] (10/02/18 12:36 PM) [place] CHEM PANEL eGFR 109 10/02 Result Comment: The eGFR is calculated using the CKD-EPI formula. In most young, healthy individuals the eGFR will be >90 mL/ min/1.73m2. The eGFR declines with age. An eGFR of 60-89 may be normal in [facility] mL/min/1. some populations, particularly the elderly, for whom the CKD-EPI formula has not been extensively validated. Use of the eGFR is not recommended in the following populations: [place] [id number] Center Individuals with unstable creatinine concentrations, including patients [...] Lvl 78 mg/dL 70 - 99 10/02 [facility] CHEM PANEL Creatinine 0.62 mg/dL 0.50 - 10/02 [facility] Lvl 1.40 [facility] CHEM PANEL BUN 10 mg/dL 7 - 22 10/02 2018 [facility] CHEM PANEL Sodium Lvl 141 meq/L 135 - 145 10/02 2018 [facility] CHEM PANEL Potassium 4.2 meq/L 3.5 - 5.1 10/02 [facility] CHEM PANEL Calcium Lvl 8.8 mg/dL 8.5 - 10.5 10/02 [facility]2018 [facility] CHEM PANEL Chloride Lvl 107 meq/L 95 - 109 10/02 [facility]2018 [facility] CHEM PANEL CO2 31 meq/L 24 - 32 10/[address] CHEM PANEL AGAP 7.2 meq/L 10.0 - 10/02 [facility] 20.0 [facility] HEMATOLOGY Eosinophils 0.1 K/CMM 0.0 - 0.5 10/02 [facility] HEMATOLOGY Monocytes # 0.2 K/CMM 0.0 - 0.8 10/02 [facility] HEMATOLOGY Basophils 1.0 % 0.0 - 1.0 10/02 [facility] HEMATOLOGY Lymphocytes 35.9 % 20.0 - 10/02 40.0 [facility] HEMATOLOGY Monocytes 4.3 % 2.0 - 12.0 10/02 [facility] HEMATOLOGY Eosinophils 2.6 % 0.0 - 4.0 10/02 [facility] HEMATOLOGY Neutrophils 2.8 K/CMM 1.5 - 8.1 10/02 [facility] HEMATOLOGY Lymphocytes 1.8 K/CMM 1.0 - 5.5 10/02 [facility]2018 [facility] HEMATOLOGY Segs 56.2 % 45.0 - 10/02 [facility] 75.0 [facility] HEMATOLOGY INR 0.97 0.85 - 10/02 [facility] 1.17 [facility] HEMATOLOGY PT 12.7 s 12.0 - 10/02 [facility] 14.7 [facility] HEMATOLOGY PTT 29.4 s 22.9 - 10/02 [place] 35.8 /2019 [facility] HEMATOLOGY MPV 10.3 fL 7.4 - 10.4 10/02 /2018 [facility] HEMATOLOGY Platelet 232 K/CMM 133 - 450 10/02 /2018 [facility] HEMATOLOGY MCHC 33.4 g/dL 32.0 - 10/02 [place] 36.0 /2019 [facility] HEMATOLOGY RDW 12.9 % 11.5 - 10/02 [place] 14.5 /2018 [facility] HEMATOLOGY RBC 4.38 M/CMM 4.20 - 10/02 [place] 5.40 /2019 [facility] HEMATOLOGY Hgb 13.4 g/dL 12.0 - 10/02 [facility] 16.0 /2018 [facility] HEMATOLOGY MCV 91.5 fL 80.0 - 10/02 [facility] 98.0 /2019 [facility] HEMATOLOGY Hct 40.1 % 36.0 - 10/02 [place] 48.0 /2019 [facility] HEMATOLOGY WBC 4.9 K/CMM 3.7 - 10.4 10/02 /2018 [facility] HEMATOLOGY MCH 30.6 pg 27.0 - 10/02 [place] 31.0 /2019 [facility] CARDIAC Total CK 49 unit/L 04/17 [facility] [place] CARDIAC Troponin-I 0.02 ng/mL 0.00 - 04/17 [facility] 0.40 [place] CARDIAC Total CK 57 unit/L 04/16 [facility] 2018 [place] CARDIAC Troponin-I null 0.00 - 04/16 [facility] 0.40 [place] CHEM PANEL Phosphorus 3.4 mg/dL 2.5 - 4.5 04/16 [place] CHEM PANEL Magnesium 2.0 mg/dL 1.8 - 2.4 04/16 Lvl /2017 [place] URINE AND UA <=1.0 0.1 - 1.0 04/16 STOOL Urobilinogen mg/dL [place] URINE AND UA WBC 2 /HPF 0 - 5 04/16 STOOL [place] URINE AND UA Sq Epi Few /LPF Few /LPF 04/16 STOOL [place] URINE AND UA RBC 1 /HPF 0 - 2 04/16 STOOL [place] URINE AND UA Glucose Negative Negative 04/16 STOOL mg/dL mg/dL [place] URINE AND UA pH 5.0 5.0 - 8.0 04/16 STOOL [place] URINE AND UA Spec Grav 1.004 <=1.030 04/16 STOOL [place] URINE AND UA Protein Negative Negative 04/16 STOOL mg/dL mg/dL [place] URINE AND UA Leuk Est Negative Negative 04/16 [place] (04/16/18 1:00 PM) URINE AND UA Turbidity Clear Clear 04/16 [place] (04/16/18 1:00 PM) URINE AND UA Nitrite Negative Negative 04/16 STOOL [place] (04/16/18 1:00 PM) URINE AND UA Blood Negative Negative 04/16 STOOL [place] (04/16/18 1:00 PM) URINE AND UA Bacteria Many /HPF None Seen 04/16 STOOL /HPF [place] URINE AND UA Bili Negative Negative 04/16 [place] *NA* (04/16/18 1:00 PM) URINE AND UA Ketones Negative Negative 04/16 STOOL mg/dL mg/dL [place] URINE AND UA Hyal Cast 1 /LPF 0 - 2 04/16 [place] URINE AND UA Color STRAW 04/16 STOOL [place] CARDIAC Total CK 71 unit/L 12 - 191 04/16 [facility] [place] CARDIAC Troponin-I null 0.00 - 04/16 [facility] 0.40 [place] ELECTROLYTE AGAP 13.2 meq/L 10.0 - 04/16 S 20.0 [place] ELECTROLYTE eGFR 110 04/16 Result Comment: The eGFR is calculated using the CKD-EPI formula. In most young, healthy individuals the eGFR will be > 90 mL/min/1.73m2. The eGFR declines with age. An eGFR of 60-89 may be normal in S mL/min/1.7 /2018 some populations, particularly the elderly, for whom the CKD-EPI formula has not been extensively validated. Use of the eGFR is not recommended in the following populations: [place] 3m2 Individuals with unstable creatinine concentrations, including patients [...] multiplied by the estimated BMI. ELECTROLYTE CO2 26 meq/L 24 - 32 04/16 S [place] ELECTROLYTE Chloride Lvl 106 meq/L 95 - 109 04/16 [place] ELECTROLYTE Sodium Lvl 141 meq/L 135 - 145 04/16 [place] ELECTROLYTE Potassium 4.2 meq/L 3.5 - 5.1 04/16 S Lvl /2017 [place] ELECTROLYTE Calcium Lvl 9.1 mg/dL 8.5 - 10.5 04/16 [place] ELECTROLYTE BUN 9 mg/dL 7 - 22 04/16 [place] ELECTROLYTE Creatinine 0.59 mg/dL 0.50 - 04/16 S Lvl 1.40 [place] ELECTROLYTE Glucose Lvl 97 mg/dL 70 - 99 04/16 [place] HEMATOLOGY Hct 40.8 % 36.0 - 04/16 MH 48.0 [place] HEMATOLOGY RBC 4.25 M/CMM 4.20 - 04/16 5. [place] HEMATOLOGY Hgb 14.1 g/dL 12.0 - 04/16 MH 16.0 [place] HEMATOLOGY RDW 13.2 % 11.5 - 04/16 MH 14. [place] HEMATOLOGY Platelet 222 K/CMM 133 - 450 04/16 [place] HEMATOLOGY MPV 9.2 fL 7.4 - 10.4 04/16 [place] HEMATOLOGY WBC 10.1 K/CMM 3.7 - 10.4 04/16 [place] HEMATOLOGY MCV 96.0 fL 80.0 - 04/16 MH 98.0 [place] HEMATOLOGY MCH 33.3 pg 27.0 - 04/16 MH 31.0 [place] HEMATOLOGY MCHC 34.6 g/dL 32.0 - 04/16 MH 36.0 [place] HEMATOLOGY PT 12.4 s 12.0 - 04/16 MH 14. [place] HEMATOLOGY INR 0.92 0.85 - 04/16 MH 1. [place] HEMATOLOGY PTT 28.2 s 22.9 - 04/16 MH 35.8 [place] HEMATOLOGY Eosinophils 1.2 % 0.0 - 4.0 04/16 [place] HEMATOLOGY Neutrophils 8.1 K/CMM 1.5 - 8.1 04/16 MH # /2017 [place] HEMATOLOGY Basophils 0.4 % 0.0 - 1.0 04/16 /2017 [place] HEMATOLOGY Eosinophils 0.1 K/CMM 0.0 - 0.5 04/16 # /2018 [place] HEMATOLOGY Lymphocytes 1.4 K/CMM 1.0 - 5.5 04/16 # /2017 [place] HEMATOLOGY Monocytes # 0.5 K/CMM 0.0 - 0.8 04/16 /2017 [place] HEMATOLOGY Lymphocytes 13.4 % 20.0 - 04/16 MH 40.0 [place] HEMATOLOGY Monocytes 5.0 % 2.0 - 12.0 04/16 /2017 [place] HEMATOLOGY Segs 80.0 % 45.0 - 04/16 75.0 [place] LIPIDS VLDL 17 04/16 [place] LIPIDS LDL 83 mg/dL <=99 mg/dL 04/16 (Calculated) [place] LIPIDS Chol 190 mg/dL <=199 04/16 mg/dL [place] LIPIDS HDL 90 mg/dL >=61 mg/dL 04/16 [place] LIPIDS CHD Risk 2.11 3.90 - 04/16 5.80 [place] LIPIDS Trig 85 mg/dL <=149 04/16 mg/dL [place] SPECIAL Hgb A1C 4.6 % <=5.6 % 04/16 CHEMISTRY [place] Carotid Carotid Clinical Indication: - tingling in mouth; 04/16 - [facility] /2017 - [place] Doppler Doppler Comparison: None bilat US bilat [...] occlusion High, low, or Variable undetectable SL: 3-M Brain w/wo Brain w/wo EXAM: MRI BRAIN WITHOUT AND WITH CONTRAST 04/16 [facility] contrast contrast MRI /[facility] [place] MRI DATE: 04/16/2018 12:49 PM CDT Read [...] Stroke Patient Name: CASSIE ST [facility]16 [facility] - [place] contrast CT CT : 1970; Age: 48 years y/o Female MR: [id number] Read by: Shilpi Grimesap Dictated Date/time: 04/16/18 12:37 Electronically Signed by: Shilpi Grimes 04/16/18 12:39 FINAL REPORT Study: Brain Stroke [...] Signs Vital Sign Value Date Comments Source BMI Calculated 27.8 10/16/2018 [facility] Weight 71.182 10/16/2018 [facility] Height 160.02 cm 10/16/2018 [facility] Heart Rate 73 10/16/2018 [facility] Temperature Oral (F) 97.9 F 10/16/2018 [facility] Systolic (mm Hg) 120 10/16/2018 [facility] Diastolic (mm Hg) 85 10/16/2018 [facility] Systolic (mm Hg) 128 10/05/2018 [facility] Diastolic (mm Hg) 77 10/05/2018 [facility] Temperature Oral (F) 98.6 F 10/05/2018 [facility] Heart Rate 73 10/05/2018 [facility] Respitory Rate 18 10/05/2018 [facility] Systolic (mm Hg) 131 10/05/2018 [facility] Diastolic (mm Hg) 71 10/05/2018 [facility] Respitory Rate 16 10/05/2018 [facility] Heart Rate 73 10/05/2018 [facility] Temperature Oral (F) 99.0 F 10/05/2018 [facility] Systolic (mm Hg) 123 10/05/2018 [facility] Diastolic (mm Hg) 69 10/05/2018 [facility] Heart Rate 70 10/05/2018 [facility] Respitory Rate 16 10/05/2018 [facility] Temperature Oral (F) 98.9 F 10/05/2018 [facility] Weight 71.818 10/03/2018 [facility] BMI Calculated 28.05 10/03/2018 [facility] Height 160.02 cm 10/03/2018 [facility] Weight 72.091 10/02/2018 [facility] BMI Calculated 28.15 10/02/2018 [facility] Height 160.02 cm 10/02/2018 [facility] Temperature Oral (F) 98.3 F 10/02/2018 [facility] Heart Rate 76 10/02/2018 [facility] Systolic (mm Hg) 130 10/02/2018 [facility] Diastolic (mm Hg) 86 10/02/2018 [facility] Respitory Rate 17 04/17/2018 [facility] Systolic (mm Hg) 97 04/17/2018 [facility] Diastolic (mm Hg) 56 04/17/2018 [facility] Heart Rate 66 04/17/2018 [facility] Temperature Oral (F) 99.4 F 04/17/2018 [facility] Respitory Rate 16 04/17/2018 [facility] Systolic (mm Hg) 107 04/17/2018 [facility] Diastolic (mm Hg) 70 04/17/2018 [facility] Respitory Rate 16 04/17/2018 [facility] Heart Rate 63 04/17/2018 [facility] Systolic (mm Hg) 106 04/17/2018 [facility] Diastolic (mm Hg) 70 04/17/2018 [facility] Temperature Oral (F) 98.8 F 04/17/2018 [facility] Temperature Oral (F) 98.3 F 04/17/2018 [facility] Heart Rate 67 04/17/2018 [facility] BMI Calculated 29.14 04/16/2018 [facility] Height 162.56 cm 04/16/2018 [facility] Weight 77.017 04/16/2018 [facility] BMI Calculated 29.14 04/16/2018 [facility] Weight 77 04/16/2018 [facility] Height 162.56 cm 04/16/2018 [facility] Systolic (mm Hg) 139 09/22/2017 [facility] Diastolic [...] Hg) 133 11/07/2014 [facility] Respitory Rate 16 11/07/2014 [facility] Diastolic (mm Hg) 60 11/07/2014 [facility] Peripheral Pulse Rate 66 11/07/2014 [facility] Systolic (mm Hg) 109 11/07/2014 [facility] Respitory Rate 15 11/07/2014 [facility] Heart Rate 64 11/07/2014 [facility] Diastolic (mm Hg) 65 11/07/2014 [facility] Heart Rate 65 11/07/2014 [facility] Respitory Rate 12 11/07/2014 [facility] Diastolic (mm Hg) 62 11/07/2014 [facility] Systolic (mm Hg) 106 11/07/2014 [facility] Peripheral Pulse Rate 72 11/07/2014 [facility] Temperature Oral (F) 36.5 Linda 11/07/2014 [facility] Temperature Oral (F) 36.6 Linda 11/07/2014 [facility] Peripheral Pulse Rate 70 11/07/2014 [facility] Weight 131.54 11/07/2014 [facility] Height 162.56 cm 11/07/2014 [facility] Weight 49.78 11/07/2014 [facility] Weight 49.78 11/05/2014 [facility] Weight 131.54 11/05/2014 [facility] Height 162.56 cm 11/05/2014 [facility] Encounters Location Location Encounter Encounter Reason Attending ADM DC Status Source Details Type Number For Provider Date Date Visit [facility] Outpatient [id number] John 11/07 11/07 [facility] [id number] John 09/22 09/22 Active [id number]/22 [facility] Observation [id number] Milind 04/16 04/17 [place] 0 [facility] Outpatient [id number] SUSANNA 06/19 [facility] 0 [place] Outpatient [id number] SUSANNA 07/18 [facility] 1 [place] Outpatient [id number] VICTORINO 07/31 [facility] 3 [facility] Outpatient [id number] RAYMUNDO FORDE 07/31 Active [facility] [place] Outpatient [id number] SUSANNA 08/31 [facility] 4 [place] Outpatient [id number] RAYMUNDO FORDE 10/02 [facility] Outpatient [id number] Raymundo Forde 10/02 10/03 [facility] Outpatient [id number] RAYMUNDO FORDE 10/03 [facility] Outpatient [id number] Raymundo Forde 10/03 10/04 [facility] Inpatient [id number] Raymundo Forde 10/03 10/05 [facility] Phone [id number] 10/08 10/10 [facility] Phone [id number] 10/11 10/13 [facility] Outpatient [id number] RAYMUNDO FORDE 10/16 [facility] Outpatient [id number] Raymunod Forde 10/16 10/17 [facility] Outpatient [id number] SUSANNA 10/26 [facility] 0 [facility] Outpatient [id number] SUSANNA 11/30 [facility] 8 [facility] Outpatient [id number] SUSANNA 12/04 Active [facility] 1 [place] Outpatient [id number] ZULAY 12/31 Active [facility] 9 [place] [facility] Preadmit [id number] John Active Surgical [facility] [place] Procedures Procedure Code Date Perfomer Comments Source COLONOSCOPY auto-populated [facility] FLEXIBLE; 8 from documented DIAGNOSTIC; INCL. surgical case COLLECTION OF SPECIMENS 93339 (Other)<sup>1</sup> ESOPHAGOGASTRODUODEN auto-populated [facility] OSCOPY; FLEXIBLE 8 from documented DIAGNOSTIC 51366 surgical case (Other)<sup>2</sup> Back Surgery USPI 7 Gastric BiPass USPI 5 ESOPHAGOGASTRODUODEN Brianna 1auto-populated Surgical OSCOPY; FLEXIBLE ESPINOZA 5 from documented Specialty (Other)<sup>1</sup> surgical case [facility] Appendectomy [id number] [facility] lap band removal [facility] Partial hysterectomy [id number] [facility] Cholecystectomy [id number] [facility] lap band placement [facility] Tubal ligation Surgical [facility] Appendectomy [id number] [facility] Cholecystectomy [id number] [facility] Gastric bypass [id number] [facility] operation Partial hysterectomy [id number] [facility] Appendectomy [id number] [facility] Cholecystectomy [id number] [facility] Gastric bypass [id number] [facility] operation Partial hysterectomy [id number] [facility] Appendectomy [id number] [facility] Cholecystectomy [id number] [facility] Gastric bypass [id number] [facility] Partial hysterectomy [id number] [facility] colonoscopy [facility] EGD [facility]
--- OUTSIDE RECORDS SUMMARY | 2018-11-07 16:02 | XMS REPORT | Summary of Care ---
:1970 Author Organization [facility] Address [id number] [place] [phone]- Encounter HQ Mar(FIN) [id number] Date(s): 04/16/18 - 04/17/18 [facility] [id number] [place] [phone] Encounter Diagnosis Dizziness and giddiness (Final) - 04/27/18 Paresthesia of skin (Final) - Anesthesia of skin (Final) - Rheumatoid arthritis, unspecified (Final) - Bariatric surgery status (Final) - Cardiac murmur, unspecified (Final) - Discharge Disposition: Home or Self Care Attending Physician: Milind Hanley DO Admitting Physician: Milind Hanley DO Vital Signs Most recent to oldest 1 2 3 [Reference Range]: Height 162.56 cm 162.56 cm (04/16/18 6:17 PM) (04/16/18 12:18 PM) Temperature Oral [96.4-99.1 99.4 DegF 98.8 DegF 98.3 DegF DegF] *HI* (04/17/18 4:09 AM) (04/16/18 11:37 PM) (04/17/18 7:52 AM) Blood Pressure [90-140/60-90 97/56 mmHg 107/70 mmHg 106/70 mmHg mmHg] (04/17/18 11:30 AM) (04/17/18 7:52 AM) (04/17/18 4:09 AM) Respiratory Rate [14-20 17 BRMIN 16 BRMIN 16 BRMIN BRMIN] (04/17/18 11:30 AM) (04/17/18 7:52 AM) (04/17/18 4:09 AM) Peripheral Pulse Rate 66 bpm 63 bpm 67 bpm [60-100 bpm] (04/17/18 7:52 AM) (04/17/18 4:09 AM) (04/16/18 11:37 PM) Weight 77.017 kg 77 kg (04/16/18 6:17 PM) (04/16/18 12:18 PM) Body Mass Index 29.14 m2 29.14 m2 (04/16/18 6:17 PM) (04/16/18 12:18 PM) Problem List Condition Effective Dates Status Health Status Informant Pineal gland cyst(Confirmed) Resolved Fatigue(Confirmed) Active Foot drop, right(Confirmed) Resolved Headache(Confirmed) Active H/O: stroke(Confirmed) Resolved Paresthesia(Confirmed) Active Rheumatoid arthritis, erosive, Active seronegative(Confirmed) Allergies, Adverse Reactions, Alerts Substance Reaction Severity Status NKDA Active Medications aspirin 81 mg tablet, enteric coated 81 mg, 1 tab, Route: PO, Drug form: ECTAB, Q24H, Dosing Weight 77, kg, Start date: 04/16/18 17:00:00CDT, Duration: 30 day, Stop date: 05/15/18 17:00:00 CDT Notes: Do not crush or chew.(Same As: Ecotrin) Start Date: 04/16/18 Stop Date: 04/17/18 Status: Discontinuedatorvastatin 80 mg, 2 tab, Route: PO, Drug form: TAB, Bedtime, Dosing Weight 77, kg, Start date: 04/16/18 21:00:00 CDT, Duration: 30 day, Stop date: 05/15/18 21:00:00 CDT Notes: (Same as: Lipitor) Start Date: 04/16/18 Stop Date: 04/17/18 Status: Discontinuedgabapentin 300 mg, PO, TID, 0 Refill(s) Start Date: 04/16/18 Status: Orderedgabapentin 300 mg, 1 cap, Route: PO, Drug form: CAP, TID, Dosing Weight 77.017, kg, Start date: 04/16/18 22:41:00 CDT, Duration: 30 day, Stop date: 05/16/18 17:00:00 CDT Notes: (Same as: Neurontin) Start Date: 04/16/18 Stop Date: 04/17/18 Status: Discontinuedgabapentin 300 mg oral capsule 300 mg=1 cap, PO, TID, # 90 cap, 0 Refill(s) Start Date: 04/16/18 Stop Date: 04/17/18 Status: Discontinuedomeprazole 40 mg, PO, Daily, 0 Refill(s) Start Date: 04/16/18 Status: Orderedomeprazole PO, Daily, 0 Refill(s) Start Date: 04/16/18 Stop Date: 04/17/18 Status: DiscontinuedPROzac 20 mg oral capsule 20 mg=1 cap, PO, Daily, # 30 cap, 0 Refill(s) Start Date: 04/16/18 Status: OrderedSaline Flush 0.9% 10 mL, Route: IVP, Drug Form: INJ, Dosing Weight 77, kg, PRN, PRN Line Flush, Start date: 04/16/18 12:25:00 CDT, Duration: 30 day, Stop date: 05/16/18 12:24: 00 CDT Notes: (Same as: BD Posiflush) Start Date: 04/16/18 Stop Date: 04/17/18 Status: DiscontinuedSaline Flush 0.9% 10 ml, Route: IVP, Drug Form: INJ, Dosing Weight 77, kg, Q12H, Start date: 04/16 21:00:00 CDT, Duration: 30 day, Stop date: 05/16/18 9:00:00 CDT Notes: (Same as: BD Posiflush) Start Date: 04/16/18 Stop Date: 04/17/18 Status: DiscontinuedSaline Flush 0.9% 10 ml, Route: IVP, Drug Form: INJ, Dosing Weight 77, kg, PRN, PRN Line Flush, Start date: 04/16/18 16:50:00 CDT, Duration: 30 day, Stop date: 05/16/18 16:49: 00 CDT Notes: (Same as: BD Posiflush) Start Date: 04/16/18 Stop Date: 04/17/18 Status: Discontinuedtramadol 50 mg, PO, Q8H, 0 Refill(s) Start Date: 04/16/18 Stop Date: 10/04/18 Status: Discontinuedtramadol 50 mg, 1 tab, Route: PO, Drug form: TAB, Q4H, Dosing Weight 77.017, kg, PRN Pain Score 4-6, Start date: 04/17/18 3:50:00 CDT, Duration: 30 day, Stop date: 05/17/18 3:49:00 CDT Notes: Not to exceed 400mg/day. (Same As: Ultram) Start Date: 04/17/18 Stop Date: 04/17/18 Status: Discontinuedtramadol 50 mg, 1 tab, Route: PO, Drug form: TAB, Q4H, Dosing Weight 77.017, kg, Start date: 04/17/18 0:00:00CDT, Duration: 30 day, Stop date: 05/16/18 20:00:00 CDT Notes: Not to exceed 400mg/day. (Same As: Ultram) Start Date: 04/17/18 Stop Date: 04/17/18 Status: Discontinuedtramadol 50 mg oral tablet 50 mg=1 tab, PO, Q4H, PRN Pain Score 4-6, 0 Refill(s) Start Date: 04/16/18 Stop Date: 04/17/18 Status: Discontinued Results ELECTROLYTES Most recent to oldest [Reference Range]: 1 2 3 Sodium Lvl [135-145 mEq/L] 141 mEq/L (04/16/18 12:45 PM) Potassium Lvl [3.5-5.1 mEq/L] 4.2 mEq/L (04/16/18 12:45 PM) Chloride Lvl [95-109 mEq/L] 106 mEq/L (04/16/18 12:45 PM) CO2 [24-32 mEq/L] 26 mEq/L (04/16/18 12:45 PM) AGAP [10.0-20.0 mEq/L] 13.2 mEq/L (04/16/18 12:45 PM) CHEM PANEL Most recent to oldest [Reference Range]: 1 2 3 Creatinine Lvl [0.50-1.40 mg/dL] 0.59 mg/dL (04/16/18 12:45 PM) eGFR 110 mL/min/1.73m2 1 *NA* (04/16/18 12:45 PM) BUN [7-22 mg/dL] 9 mg/dL (04/16/18 12:45 PM) Glucose Lvl [70-99 mg/dL] 97 mg/dL (04/16/18 12:45 PM) Calcium Lvl [8.5-10.5 mg/dL] 9.1 mg/dL (04/16/18 12:45 PM) Phosphorus [2.5-4.5 mg/dL] 3.4 mg/dL (04/16/18 6:07 PM) Magnesium Lvl [1.8-2.4 mg/dL] 2.0 mg/dL (04/16/18 6:07 PM) 1Result Comment: The eGFR is calculated [...] eGFR should be multiplied by the estimated BMI.CARDIAC ENZYMES Most recent to oldest 1 2 3 [Reference Range]: Total CK [12-191 unit/L] 49 unit/L 57 unit/L 71 unit/L (04/16/18 9:55 PM) (04/16/18 6:07 PM) (04/16/18 12:45 PM) Troponin-I [0.00-0.40 ng/mL] 0.02 ng/mL <0.02 ng/mL <0.02 ng/mL (04/16/18 9:55 PM) (04/16/18 6:07 PM) (04/16/18 12:45 PM) LIPIDS Most recent to oldest [Reference Range]: 1 2 3 CHD Risk [3.90-5.80] 2.11 *LOW* (04/16/18 12:45 PM) Chol [<=199 mg/dL] 190 mg/dL (04/16/18 12:45 PM) Trig [<=149 mg/dL] 85 mg/dL (04/16/18 12:45 PM) HDL [>=61 mg/dL] 90 mg/dL (04/16/18 12:45 PM) LDL (Calculated) [<=99 mg/dL] 83 mg/dL (04/16/18 12:45 PM) VLDL 17 *NA* (04/16/18 12:45 PM) SPECIAL CHEMISTRY Most recent to oldest [Reference Range]: 1 2 3 Hgb A1C [<=5.6 %] 4.6 % (04/16/18 12:45 PM) URINE AND STOOL Most recent to oldest [Reference Range]: 1 2 3 UA Turbidity [Clear] Clear (04/16/18 1:00 PM) UA Color STRAW *NA* (04/16/18 1:00 PM) UA pH [5.0-8.0] 5.0 (04/16/18 1:00 PM) UA Spec Grav [<=1.030] 1.004 (04/16/18 1:00 PM) UA Glucose [Negative mg/dL] Negative mg/dL *NA* (04/16/18 1:00 PM) UA Blood [Negative] Negative (04/16/18 1:00 PM) UA Ketones [Negative mg/dL] Negative mg/dL *NA* (04/16/18 1:00 PM) UA Protein [Negative mg/dL] Negative mg/dL (04/16/18 1:00 PM) UA Urobilinogen [0.1-1.0 mg/dL] <=1.0 mg/dL *NA* (04/16/18 1:00 PM) UA Bili [Negative] Negative *NA* (04/16/18 1:00 PM) UA Leuk Est [Negative] Negative (04/16/18 1:00 PM) UA Nitrite [Negative] Negative (04/16/18 1:00 PM) UA WBC [0-5 /HPF] 2 /HPF (04/16/18 1:00 PM) UA RBC [0-2 /HPF] 1 /HPF (04/16/18 1:00 PM) UA Bacteria [None Seen /HPF] Many /HPF *ABN* (04/16/18 1:00 PM) UA Sq Epi [Few /LPF] Few /LPF *NA* (04/16/18 1:00 PM) UA Hyal Cast [0-2 /LPF] 1 /LPF (04/16/18 1:00 PM) HEMATOLOGY Most recent to oldest [Reference Range]: 1 2 3 WBC [3.7-10.4 K/CMM] 10.1 K/CMM (04/16/18 12:45 PM) RBC [4.20-5.40 M/CMM] 4.25 M/CMM (04/16/18 12:45 PM) Hgb [12.0-16.0 g/dL] 14.1 g/dL (04/16/18 12:45 PM) Hct [36.0-48.0 %] 40.8 % (04/16/18 12:45 PM) MCV [80.0-98.0 fL] 96.0 fL (04/16/18 12:45 PM) MCH [27.0-31.0 pg] 33.3 pg *HI* (04/16/18 12:45 PM) MCHC [32.0-36.0 g/dL] 34.6 g/dL (04/16/18 12:45 PM) RDW [11.5-14.5 %] 13.2 % (04/16/18 12:45 PM) MPV [7.4-10.4 fL] 9.2 fL (04/16/18 12:45 PM) Platelet [133-450 K/CMM] 222 K/CMM (04/16/18 12:45 PM) Segs [45.0-75.0 %] 80.0 % *HI* (04/16/18 12:45 PM) Lymphocytes [20.0-40.0 %] 13.4 % *LOW* (04/16/18 12:45 PM) Monocytes [2.0-12.0 %] 5.0 % (04/16/18 12:45 PM) Eosinophils [0.0-4.0 %] 1.2 % (04/16/18 12:45 PM) Basophils [0.0-1.0 %] 0.4 % (04/16/18 12:45 PM) Neutrophils # [1.5-8.1 K/CMM] 8.1 K/CMM (04/16/18 12:45 PM) Lymphocytes # [1.0-5.5 K/CMM] 1.4 K/CMM (04/16/18 12:45 PM) Monocytes # [0.0-0.8 K/CMM] 0.5 K/CMM (04/16/18 12:45 PM) Eosinophils # [0.0-0.5 K/CMM] 0.1 K/CMM (04/16/18 12:45 PM) PT [12.0-14.7 seconds] 12.4 seconds (04/16/18 12:45 PM) INR [0.85-1.17] 0.92 (04/16/18 12:45 PM) PTT [22.9-35.8 seconds] 28.2 seconds (04/16/18 12:45 PM) Immunizations No data available for this section Procedures Procedure Date Related Diagnosis Body Site Status Appendectomy Completed Cholecystectomy Completed Gastric bypass operation Completed Partial hysterectomy Completed Social History Social History Type Response Substance Abuse Use: None. Employment/School Status: Employed. 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 Alcohol Current, Frequency: 1-2 times per month. Smoking Status Never smoker; Exposure to Tobacco Smoke None; Cigarette Smoking Last 365 Days No; Reg Smoking Cessation Counseling No entered on: 10/26/18 Assessment and Plan Extracted from: Title: TELENEUROLOGY PROGRESS NOTE Author: Morelia Hunt MD Date: 04/17/18 TELEMEDICINE NEUROLOGY - PROGRESS NOTE CC: tongue numbness HISTORY OF PRESENT ILLNESS: PER MEDICAL RECORDS: 48 year old with h/o RA and gastric bypass surgery, here at 10:00 with numbness of tip of the tongue, lightheadedness vertigo, felt "hazy". Resolved mostly but still some tongue numbness. The patient D ENIES having had any headache, nausea, vomiting, diplopia . Pt also DENIES having neither any ataxia, weakness at arms or legs nor any change in sensation ; describes having NO facial deficits, language difficulties nor reading/ writing difficulties. UPDATE: Symptoms improved, no concerning events overnight. PHYSICAL EXAM: Vitals Tmp(F) Pulse BP RR SpO2 FIO2 04/17 07:52 99.4 66 107/70 16 100 --- 04/17 04:09 98.8 63 106/70 16 98 --- 04/16 23:37 98.3 67 116/76 16 98 --- 04/16 20:52 98.7 66 116/77 16 99 --- 04/16 18:07 ---- 67 121/80 -- 98 --- 24 Hr Tmax: 99.4F (37.44c) at 04/17 07:52 Vital Signs are the last 5 in the past 48 hours. -Alert, oriented, answers questions appropriately, follows commands -Language is fluent -Speech clear -EOMI, visual ulrich intact within the limitations of video assessment -Face symmetric -Tongue protrudes midline -RUE: no drift -RLE: no drift -LUE: no drift -LLE: no drift -Coordination: Normal HTS -Gait deferred DIAGNOSTIC TESTS: MRI brain: "1. No definite acute infarct or intracranial hemorrhage detected. 2. No significant migraine-related change or chronic small vessel ischemic change detected. 3. 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 Resolved mostly but still some tongue numbness. The patient D ENIES having had any headache, nausea, vomiting, diplopia . Pt also DENIES having neither any ataxia, weakness at arms or legs nor any change in sensation ; describes having NO facial deficits, language difficulties nor reading/ writing difficulties. No evidence of primary neurological etiology Incidentally-found pineal cyst - not related to presentation RECOMMENDATIONS: -Defer evaluation and management of other medical problems to the primary team -No further recommendations Will sign off. Please call with questions. Morelia Hunt MD (TC) Vascular Neurology [facility] Call Center: [phone] Extracted from: Title: History and Physical Author: Milind Hanley DO Date: 04/16/18 1.Stroke-like symptoms CT brain negative,pending neurology eval, MRI brain, PT OT evaluation. Ordered: Admit/Condition, 04/16/18 15:18:00 CDT, Status: Out Patient with Observation Services, Acute, Expected LOS: 1 Midnight, Milind Hanley DO, Admit MD Review/ Approve Yes 2.Numbness Of Tongue Unclear etiologyat this time 3.Rheumatoid arthritis Outpatient follow with rheumatology 4.S/P gastric bypass Stable, supportive care Ambulation PendingMRI brain, neurology evaluated, monitoring overnight,PT OT evaluation. Extracted from: Title: Teleneurology Author: Karen Smith MD Date: 04/16/18 TELEMEDICINE NEUROLOGY - ROUTINE CONSULTATION Date of Consult: 04/16/18 CC: tongue numbness HISTORY OF PRESENT ILLNESS: 48 year old RA here at 10:00 with numbness of tip of the tongue lightheadedness vertigo, felt "hazy". Resolved mostly but still some tongue numbness. The patient DENIES having had any headache, nausea, vomiting, diplopia . Pt also DENIES having neither any ataxia, weakness at arms or legs nor any change in sensation; describes having NO facial defici ts, language difficulties nor reading/writing difficulties. PAST MEDICAL HISTORY: as above PAST SURGICAL HISTORY: gastric bypass, lower back surgery FAMILY MEDICAL HISTORY: No neuro issues SOCIAL HISTORY: no tobacco illicit drugs or heavy alcohol MEDS: omeprazole, gabapentin, tramadol ALLERGIES: NKDA PHYSICAL EXAM: Vitals and Temp: Vitals Tmp(F) Pulse BP RR SpO2 FIO2 04/16 12:18 98 71 131/81 18 100 --- 24 Hr Tmax: 98F (36.67c) at 08 12:18 Vital Signs are the last 5 in the past 48 hours. AAO x3 , speech is fluent, able to repeat, follow commands and name EOMI, VFFTC, Face symmetric, sensation intact, no dysarthria, tongue midline Motor - no drift throughout Sensation- intact to light touch throughout Coordination: Normal FTN and HTS, no ataxia noted NIH Stroke Scale (NIHSS) 0 1a. Level of Consciousness; 0-alert 1-drowsy 2-stupor 0 1b. LOC Questions month and age; 0-both 1-one 2-neither 0 1c. 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 Best Gaze; 0-nl 1-partial 2-forced gaze 0 3. Visual Ulrich; 0-No visual loss. 1-Partial hemianopia 2-Complete 3-Bilateral 0 4. Facial Palsy; 0-none 1-minor 2-partial 3-complete 0 5. Motor - R arm; 0-No drift 1-Drift 2-Some antigravity 3-No antigravity 4- No movement 0 6. Motor - R leg; 0-No drift 1-Drift 2-Some antigravity 3-No antigravity 4- No movement 0 7. Motor - L arm; 0-No drift 1-Drift 2-Some antigravity 3-No antigravity 4- No movement 0 8. Motor - L leg; 0-No drift 1-Drift 2-Some antigravity 3-No antigravity 4- No movement 0 9. Limb Ataxia; 0 absent 1 - 1limb 2 - 2 limbs 0 10. Sensory; 0-nl 1-partial loss 2-dense loss 0 11. Best Language; 0-nl 1-mild/mod 2-severe 3-mute 0 12. Dysarthria; 0-nl 1-mild/mod 2-severe x-untestable 0 13. Extinction and Inattention (formerly Neglect); 0-none 1-partial 2- complete T0OTAL SCORE 0 Pre-morbid mRS 0 LABS: pending DIAGNOSTIC TESTS: CT Head: no acute findings on my prelim read ASSESSMENT: 48 year old with RA her with episode of tongue numbness and lightheadedness, unclear etiology. Not at all consistent with stroke so no tPA plus symptoms are mild and nondisabling however would obtain MR I with and without contrast to evaluate for a cranial neuropathy and consider presyncope workup as well. PLAN: -MRI brain with and without contrast -TTE -Orthostatic vital signs -EKG -Troponin -PT/OT/ST evaluations Will continue to follow.
--- OUTSIDE RECORDS SUMMARY | 2018-11-07 16:03 | XMS REPORT | Summary of Care ---
:1970 Author Organization [facility] Neurosurgery [facility] Address [address] [place] [address], [address] [place] [address]- Encounter HQ Encntr_alias(FIN) [id number] Date(s): 10/11/18 - 10/12/[address], [address] [place] [phone] Vital Signs No data available for this [...]
--- OUTSIDE RECORDS SUMMARY | 2018-11-07 16:03 | XMS REPORT | CCD ---
:1970 Author Organization [facility] Care Team Providers Name Role Phone John [...] 0.2 mL, Injection, 11/07/2014 11/07/2014 Discontinued Start [[facility]] Subcutaneous, Once PRN for other (see comment), first dose 11/07/14 6:19:00 COLLAR SEPARATOR LR 1,000 mL 1,000 mL, IV, 30 mL/hr, 11/07/2014 11/07/2014 Discontinued start date 11/07/14 6:19:00 COLLAR SEPARATOR lidocaine 4 mL, Injection, IV, Once, 11/07/2014 11/07/2014 Completed first dose 11/07/14 7:04:00 COLLAR SEPARATOR, stop date 11/07/14 7:04:00 COLLAR SEPARATOR Misc Medication 60 mL, Soln-IV, IV, Once, 11/07/2014 11/07/2014 Completed first dose 11/07/14 7:14:00 COLLAR SEPARATOR, stop date 11/07/14 7:14:00 COLLAR SEPARATOR propofol 60 mg=6 mL, Emulsion, IV, 11/07/2014 11/07/2014 Completed Once, first dose 11/07/14 7:08:00 COLLAR SEPARATOR, stop date 11/07/14 7:08:00 COLLAR SEPARATOR propofol 160 mg=16 mL, Emulsion, 11/07/2014 11/07/2014 Completed IV, Once, first dose 11/07/14 7:04:00 COLLAR SEPARATOR, stop date 11/07/14 7:04:00 COLLAR SEPARATOR Nexium 40 mg oral 40 mg=1 caps, [...]
--- OUTSIDE RECORDS SUMMARY | 2018-11-07 16:03 | XMS REPORT | Summary of Care ---
:1970 Author Organization [facility] Neurosurgery [facility] Address [address] [place] [address], [address] [place] [address]- Encounter HQ Mar(FIN) [id number] Date(s): 10/16/18 - 10/16/18 [facility] [address] [place] [address], [address] [place] [address] [phone] Discharge Disposition: Home or Self Care Attending Physician: Raymundo Forde MD Referring Physician: Wil Serrano MD Vital Signs Most recent to oldest [Reference Range]: 1 Height 160.02 cm (10/16/18 3:16 PM) Temperature Oral [96.4-99.1 DegF] 97.9 DegF (10/16/18 3:16 PM) Blood Pressure [90-140/60-90 mmHg] 120/85 mmHg (10/16/18 3:16 PM) Peripheral Pulse Rate [60-100 bpm] 73 bpm (10/16/18 3:16 PM) Weight 71.182 kg (10/16/18 3:16 PM) Body Mass Index 27.8 m2 (10/16/18 3:16 PM) Problem List Condition Effective Dates Status [...] times per month. Smoking Status Never smoker; Previous treatment: None; Ready to change: No; Concerns about tobacco use in household: No; Exposure to Tobacco Smoke None; Cigarette Smoking Last 365 Days No; Reg Smoking Cessation Counseling No entered on: 10/16/18 Assessment and Plan No data available for this section
[2018-11-07 16:37] LABS: Absolute Lymphocytes (CBC) 4.7 K/uL (0.7-4.9); Absolute Monocytes 0.6 K/uL (0.1-1.3); Absolute Neutrophil 1.8 K/uL (1.8-8.0); Basophils % 0.9 % (0-1.3); Eosinophils % 0.4 % (0-4.4); Hematocrit 39.4 % (36.0-45.0); Lymphocytes % 65.8 % (15.3-44.8); MPV 8.7 fL (7.6-11.3); Monocytes % 8.2 % (3.3-12.3); RBC Red Blood Cell Count 4.34 M/uL (3.86-4.86)
[2018-11-07 16:39] LABS: Protime INR 0.93
[2018-11-07 17:02] LABS: ALT/SGPT 37 U/L (12-78); AST/SGOT 36 U/L (15-37); Albumin 3.2 g/dL (3.4-5.0); Alkaline Phosphatase 141 U/L (45-117); BUN Blood Urea Nitrogen 9 mg/dL (7-18); Bicarbonate 31 mmol/L (21-32); Bilirubin Direct 0.1 mg/dL (0-0.2); Bilirubin Total 0.4 mg/dL (0.2-1.0); Glucose Level 85 mg/dL (74-106); Magnesium 2.1 mg/dL (1.8-2.4); NT PRO-BNP 142 pg/mL (<125); Potassium 3.3 mmol/L (3.5-5.1); Protein, Total 6.4 g/dL (6.4-8.2); Sodium Level 144 mmol/L (136-145); Troponin (Emerg Dept Use Only) < 0.02 ng/mL (0.0-0.045)
--- NOTE | 2018-11-07 17:16 | RAD REPORT ---
EXAM DESCRIPTION: CT - Head Brain Wo Cont - 11/07/2018 4:59 pm CLINICAL HISTORY: Syncope COMPARISON: None TECHNIQUE: Computed axial tomography of the head was obtained. IV contrast was not requested. All CT scans are performed using dose optimization technique as appropriate and may include automated exposure control or mA/KV adjustment according to patient size. FINDINGS: Left craniotomy has been performed. A minimal amount of subdural fluid abuts the left pos terior falx. An intracranial bleed is not seen . The ventricles are normal in caliber. No extra-axial fluid collection is noted. . Fluid within the sinuses/ mastoids is not seen. IMPRESSION: Left craniotomy without visualization of an acute abnormality. If patient's symptoms per sist MRI of the brain would be recommended.
[2018-11-07 17:20] LABS: Blood Morphology Comment NOT SEEN (NOT SEEN); Platelet Estimate ADEQ
[2018-11-07] MEDS ORDERED: NA CHLORIDE 0.9% 1,000 ML ONE (17:36)
[2018-11-07] MEDS ORDERED: ONDANSETRON 4 MG/2 ML VIAL ONE (17:36)
--- NOTE | 2018-11-07 17:49 | RAD REPORT ---
EXAM DESCRIPTION: Marisa Single View11/07/2018 5:19 pm CLINICAL HISTORY: Chest pain COMPARISON: 2007 FINDINGS: The lungs appear clear of acute infiltrate. The heart is normal size IMPRESSION: No acute abnormalities displayed
[2018-11-07 19:28] LABS: Urine Blood NEGATIVE (NEG); Urine Glucose NEGATIVE (NEG); Urine Protein NEGATIVE (NEG); Urine Specific Gravity 1.015 (1.005-1.030)
--- NOTE | 2018-11-07 20:22 | EDPHYS ---
Physician Documentation [facility] Name: Ila Schreiber Age: 48 yrs Sex: Female : 1970 Arrival Date: 11/07/2018 Time: 15:57 Bed 19 Private MD: Victor M Meehan ED Physician Jairo Sanchez HPI: 11/07 17:00 This 48 yrs old Female presents to ER via Wheelchair with complaints of pm1 Vomiting. 17:00 The patient presents to the emergency department with nausea, vomiting, diarrhea. pm1 17:00 Onset: The symptoms/episode began/occurred today. Possible causes: unknown. The pm1 symptoms are aggravated by nothing. The symptoms are alleviated by zofran. Associated signs and symptoms: Pertinent positives: abdominal pain, diarrhea, nausea, vomiting, Pertinent negatives: constipation, dysuria, fever. Severity of symptoms: in the emergency department the symptoms have improved. Patient reports that she felt faint today and almost passed out. 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 - Social history:: Smoking status: . - Ebola Screening: : Patient denies travel to an Ebola-affected area in the 21 days before illness onset. ROS: 17:00 Constitutional: Negative for fever, chills, and weight loss, Eyes: Negative for injury, pm1 pain, redness, and discharge, ENT: Negative for injury, pain, and discharge, Neck: Negative for injury, pain, and swelling, Cardiovascular: Negative for chest pain, palpitations, and edema, Respiratory: Negative for shortness of breath, cough, wheezing, and pleuritic chest pain. 17:00 Back: Negative for injury and pain, : Negative for injury, bleeding, discharge, and swelling, MS/Extremity: Negative for injury and deformity, Skin: Negative for injury, rash, and discoloration. 17:00 Abdomen/GI: Positive for abdominal pain, nausea, vomiting, and diarrhea, Negative for constipation. 17:00 Neuro: Positive for headache, near syncope, Negative for gait disturbance, numbness, tingling, weakness. Exam: 17:00 Constitutional: This is a well developed, well nourished patient who is awake, alert, pm1 and in no acute distress. Head/Face: Normocephalic, atraumatic. Eyes: Pupils equal round and reactive to light, extra-ocular motions intact. Lids and lashes normal. Conjunctiva and sclera are non-icteric and not injected. Cornea within normal limits. Periorbital areas with no swelling, redness, or edema. ENT: Nares patent. No nasal discharge, no septal abnormalities noted. Tympanic membranes are normal and external auditory canals are clear. Oropharynx with no redness, swelling, or masses, exudates, or evidence of obstruction, uvula midline. Mucous membranes moist. Neck: Trachea midline, no thyromegaly or masses palpated, and no cervical lymphadenopathy. Supple, full range of motion without nuchal rigidity, or vertebral point tenderness. No Meningismus. Chest/axilla: Normal chest wall appearance and motion. Nontender with no deformity. No lesions are appreciated. Cardiovascular: Regular rate and rhythm with a normal S1 and S2. No gallops, murmurs, or rubs. Normal PMI, no JVD. No pulse deficits. Respiratory: Lungs have equal breath sounds bilaterally, clear to auscultation and percussion. No rales, rhonchi or wheezes noted. No increased work of breathing, no retractions or nasal flaring. 17:00 Back: No spinal tenderness. No costovertebral tenderness. Full range of motion. Skin: Warm, dry with normal turgor. Normal color with no rashes, no lesions, and no evidence of cellulitis. MS/ Extremity: Pulses equal, no cyanosis. Neurovascular intact. Full, normal range of motion. 17:00 Abdomen/GI: Inspection: abdomen appears normal, Bowel sounds: normal, Palpation: abdomen is soft and non-tender, in all quadrants, mass, is not appreciated, rebound tenderness, is not appreciated. 17:00 Neuro: Orientation: is normal, Motor: is normal, moves all fours, Gait: is steady, at a normal pace, without difficulty. Vital Signs: 16:06 BP 119 / 87; Pulse 80; Resp 17; Temp 97.5(TE); Pulse Ox 100% on R/A; Weight 70.31 kg tw2 (R); Height 5 ft. 3 in. (160.02 cm); Pain 4/10; 16:43 BP 122 / 83; Pulse 70; Resp 16; Pulse Ox 98% on R/A; mh5 17:47 BP 112 / 56 Supine; Pulse 78; Resp 15; Pulse Ox 99% on R/A; ls4 17:48 BP 120 / 80 Standing; Pulse 80; Resp 16; Pulse Ox 100% on R/A; ls4 19:50 BP 111 / 71; Pulse 74; Resp 16; Temp 97.9; Pulse Ox 99% on R/A; Pain 0/10; ls4 16:06 Body Mass Index 27.46 (70.31 kg, 160.02 cm) tw2 16:06 headache tw2 MDM: 16:48 Patient medically screened. pm1 20:21 Data reviewed: vital signs. Data interpreted: Pulse oximetry: on room air is 99 %. pm1 Interpretation: normal. Counseling: I had a detailed discussion with the patient and/or guardian regarding: the historical points, exam findings, and any diagnostic results supporting the discharge/admit diagnosis, lab results, radiology results, the need for outpatient follow up, to return to the emergency department if symptoms worsen or persist or if there are any questions or concerns that arise at home. 11/07 16:23 Order name: Basic Metabolic Panel; Complete Time: 17:13 [facility] 11/07 16:23 Order name: CBC with Diff [facility] 11/07 16:23 Order name: LFT's; Complete Time: 17:13 [facility] 11/07 16:23 Order name: Magnesium; Complete Time: 17:13 [facility] 11/07 16:23 Order name: NT PRO-BNP; Complete Time: 17:13 [facility] 11/07 16:23 Order name: PT-INR; Complete Time: 17:34 [facility] 11/07 16:23 Order name: Troponin (emerg Dept Use Only); Complete Time: 17:13 [facility] 11/07 16:23 Order name: XRAY Chest (1 view); Complete Time: 17:51 4 11/07 16:49 Order name: CT Head Brain wo Cont; Complete Time: 17:34 pm1 11/07 17:21 Order name: Manual Differential; Complete Time: 17:34 EDMS 11/07 18:19 Order name: Urine Dipstick--Ancillary (enter results); Complete Time: 20:16 em1 11/07 16:23 Order name: EKG; Complete Time: 16:24 4 11/07 16:23 Order name: Cardiac monitoring; Complete Time: 16:24 4 11/07 16:23 Order name: EKG - Nurse/Tech; Complete Time: 16:24 4 11/07 16:23 Order name: IV Saline Lock; Complete Time: 16:24 4 11/07 16:23 Order name: Labs collected and sent; Complete Time: 16:24 4 11/07 16:23 Order name: O2 Per Protocol; Complete Time: 16:24 4 11/07 16:23 Order name: O2 Sat Monitoring; Complete Time: 16:24 4 11/07 17:13 Order name: Orthostatic Blood Pressure; Complete Time: 17:52 pm1 11/07 17:13 Order name: Urine Dipstick-Ancillary (obtain specimen); Complete Time: 18:18 pm1 Administered Medications: 17:30 Drug: Zofran 4 mg Route: IVP; Site: right antecubital; ls4 17:52 Follow up: Response: No adverse reaction; Marked relief of symptoms ls4 17:30 Drug: NS 0.9% 1000 ml Route: IV; Rate: 1000 ml; Site: right antecubital; ls4 Disposition: 11/08 07:33 Co-signature as Attending Physician, Jairo Sanchez MD I agree with the assessment and kdr plan of care. Disposition: 11/07/18 20:22 Discharged to Home. Impression: Vomiting, Diarrhea, unspecified. - Condition is Stable. - Discharge Instructions: Food Choices to Help Relieve Diarrhea, Adult, Diarrhea, Adult, Nausea and Vomiting, Adult, Viral Gastroenteritis, Adult. - Prescriptions for Phenergan 25 mg Rectal Suppository - insert 1 suppository by RECTAL route every 6 hours As needed; 12 suppository. promethazine 25 mg Oral Tablet - take 1 tablet by ORAL route every 6 hours As needed; 20 tablet. - Medication Reconciliation Form, Thank You Letter, Antibiotic Education, Prescription Opioid Use form. - Follow up: Emergency Department; When: As needed; Reason: Worsening of condition. Follow up: Private Physician; When: 2 - 3 days; Reason: Recheck today's complaints, Continuance of care, Re-evaluation by your physician. - Problem is new. - Symptoms have improved. Signatures: Dispatcher [employer] EDMS Jairo Sanchez MD MD [facility] Maximo Valdez NP LAMINATING MACHINE FEEDER pm1 Zulema Zendejas RN RN tw2 Gloria Archuleta RN RN ls4 Corrections: (The following items were deleted from the chart) 11/07 20:31 20:22 11/07/2018 20:22 Discharged to Home. Impression: Vomiting; Diarrhea, unspecified. ls4 Condition is Stable. Forms are Medication Reconciliation Form, Thank You Letter, Antibiotic Education, Prescription Opioid Use. Follow up: Emergency Department; When: As needed; Reason: Worsening of condition. Follow up: Private Physician; When: 2 - 3 days; Reason: Recheck today's complaints, Continuance of care, Re-evaluation by your physician. Problem is new. Symptoms have improved. pm1
--- NOTE | 2018-11-07 20:22 | ER ---
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 Transition of care: patient was not received from another setting of care. Onset of symptoms was November 07, 2018. Risk Assessment: Do you want to hurt yourself or someone else? Patient reports no desire to harm self or others. Initial Sepsis Screen: Does the patient meet any 2 criteria? No. Patient's initial sepsis screen is negative. Does the patient have a suspected source of infection? No. Patient's initial sepsis screen is negative. Care prior to arrival: None. 16:05 Method Of Arrival: Wheelchair tw2 16:05 Acuity: [place] 3 tw2 Triage Assessment: 16:08 General: Appears uncomfortable, Behavior is flat, quiet. Pain: Complains of pain in tw2 headache. GI: Reports intolerance of fluids, intolerance of food, nausea. 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 - Social history:: Smoking status: . - Ebola Screening: : Patient denies travel to an Ebola-affected area in the 21 days before illness onset. Screenin:32 Abuse screen: Denies threats or abuse. Denies injuries from another. Nutritional ls4 screening: No deficits noted. Tuberculosis screening: No symptoms or risk factors identified. Fall Risk None identified. Assessment: 16:30 General: Appears in no apparent distress. uncomfortable, Behavior is calm, cooperative. ls4 Neuro: Level of Consciousness is awake, alert. Cardiovascular: Reports lightheadedness, FEELING LIKE "PASSING OUT". GI: Abdomen is. 17:52 Reassessment: Patient appears in no apparent distress at this time. Patient and/or ls4 family updated on plan of care and expected duration. Pain level reassessed. Patient is alert, oriented x 3, equal unlabored respirations, skin warm/dry/pink. 18:55 Reassessment: Patient appears in no apparent distress at this time. Patient and/or ls4 family updated on plan of care and expected duration. Pain level reassessed. Patient is alert, oriented x 3, equal unlabored respirations, skin warm/dry/pink. Vital Signs: 16:06 BP 119 / 87; Pulse 80; Resp 17; Temp 97.5(TE); Pulse Ox 100% on R/A; Weight 70.31 kg tw2 (R); Height 5 ft. 3 in. (160.02 cm); Pain 4/10; 16:43 BP 122 / 83; Pulse 70; Resp 16; Pulse Ox 98% on R/A; mh5 17:47 BP 112 / 56 Supine; Pulse 78; Resp 15; Pulse Ox 99% on R/A; ls4 17:48 BP 120 / 80 Standing; Pulse 80; Resp 16; Pulse Ox 100% on R/A; ls4 19:50 BP 111 / 71; Pulse 74; Resp 16; Temp 97.9; Pulse Ox 99% on R/A; Pain 0/10; ls4 16:06 Body Mass Index 27.46 (70.31 kg, 160.02 cm) tw2 16:06 headache tw2 ED Course: 15:57 Patient arrived in ED. dl4 15:57 Victor M Meehan MD is Private Physician. dl4 16:06 Triage completed. tw2 16:06 Arm band placed on. tw2 16:11 Gloria Archuleta, ANJUM is Primary Nurse. ls4 16:24 Inserted saline lock: 20 gauge in right antecubital area, using aseptic technique. pc1 16:25 No provider procedures requiring assistance completed. Initial lab(s) drawn, by me, ls4 sent to lab. 16:32 Patient has correct armband on for positive identification. Placed in gown. Bed in low ls4 position. Call light in reach. Side rails up X 1. laboratory monitor on. Pulse ox on. NIBP on. Warm blanket given. Verbal reassurance given. 16:40 Patient has correct armband on for positive identification. Placed in gown. Bed in low mh5 position. Call light in reach. Side rails up X 1. Adult w/ patient. Warm blanket given. laboratory monitor on. Pulse ox on. NIBP on. 16:41 Initial lab(s) drawn, by ED staff, sent to lab. 5 16:42 Maximo Valdez NP is PHCP. pm1 16:42 Jairo Sanchez MD is Attending Physician. pm1 16:42 Basic Metabolic Panel Sent. mh5 16:42 CBC with Diff Sent. mh5 16:42 LFT's Sent. mh5 16:42 Magnesium Sent. mh5 16:42 NT PRO-BNP Sent. mh5 16:42 PT-INR Sent. mh5 16:42 Troponin (emerg Dept Use Only) Sent. mh5 16:42 EKG done, by ED staff, reviewed by Jairo Sanchez MD. mh5 16:[address] jg6 16:58 CT completed. Patient tolerated procedure well. Patient moved back from CT. vm2 17:00 CT Head Brain wo Cont In Process Unspecified. EDMS 17:19 XRAY Chest (1 view) In Process Unspecified. EDMS 20:30 IV discontinued, intact, bleeding controlled, No redness/swelling at site. Pressure ls4 dressing applied. Administered Medications: 17:30 Drug: Zofran 4 mg Route: IVP; Site: right antecubital; ls4 17:52 Follow up: Response: No adverse reaction; Marked relief of symptoms ls4 17:30 Drug: NS 0.9% 1000 ml Route: IV; Rate: 1000 ml; Site: right antecubital; ls4 Outcome: 20:22 Discharge ordered by . pm1 20:30 Discharged to home ambulatory, with family. ls4 20:30 Condition: good 20:30 Discharge instructions given to patient, family, Instructed on discharge instructions, follow up and referral plans. medication usage, safety practices, Demonstrated understanding of instructions, follow-up care, medications, Prescriptions given X 2. 20:31 Patient left the ED. ls4 Signatures: Dispatcher [employer] EDMS Maximo Valdez NP BOOKKEEPER RECEPTIONIST pm1 Zulema Zendejas RN RN tw2 Natalia Richey 5 Sujata Swann 2 Lore Hackett6 Gloria Archuleta RN RN ls4 Brandt Fisher 4 Maximo Cintron pc1
--- NOTE | 2018-11-08 05:54 | EKG ---
Test Date: 2018-11-07 Test Time: 16:25:06 Ironer: PRIMITIVO MEASUREMENT RESULTS: Intervals: Rate: 71 TX: 158 QRSD: 80 QT: 410 QTc: 445 [place]: P: 33 TX: 158 QRS: -1 T: 35 INTERPRETIVE STATEMENTS: Normal sinus rhythm Cannot rule out Anterior infarct, age undetermined Abnormal ECG Compared to ECG 07/18/2007 18:27:12 Questionable myocardial infarct finding now present Electronically Signed On 11-08-18 05:53:49 ELECTRICAL ASSEMBLY SUPERVISOR by David Figueroa
== END 2018-11-07 20:31 | disposition home or self-care (01) ==
LOC: ER 15:56
DX: R19.7 Diarrhea, unspecified (principal)
CPT/HCPCS: 36415; 70450; 71045; 80048; 80076; 81003; 83735; 83880; 84484; 85025; 85610; 93005; 96374; 99285; J2405; J7030

== ENCOUNTER 2024-10-11 13:18 | Emergency (ER) | payer BC ==
--- NOTE | 2024-10-11 14:02 | RAD REPORT ---
EXAMINATION: CT HEAD WITHOUT CONTRAST CLINICAL INDICATION: Female, 54 years old.HEADACHE TECHNIQUE: Axial CT images from the skull base to the vertex without intravenous contrast. Coronal an d sagittal reformatted images were created from the data set. One or more of the following dose reduction techniques were used: Automated exposure control, adjustment of the mA and/or kV according to patient size, and/or iterative reconstruction. Unless otherwise specified, incidental findings do not require dedicated imaging follow-up. [id number]. COMPARISON: 12/11/2022 FINDINGS: INTRACRANIAL: No acute intracranial hemorrhage. No hydrocephalus. No mass effect or midline shift. No significant white matter disease.Right frontal approach ventriculostomy. The right lateral ventricle is completely decompressed. VASCULATURE: No visualized abnormalities in the arteries or dural venous sinuses. SCALP/SKULL: No significant soft tissue or osseous abnormalities. Craniotomy changes at the occipital calvarium. SINUSES: The visualized paranasal sinuses and mastoid air cells are predominantly clear. IMPRESSION: Right frontal approach ventriculostomy with similar ventricular configuration compared with 12/11/2022. No acute intracranial abnormality or significant change.
--- NOTE | 2024-10-11 14:25 | RAD REPORT ---
EXAMINATION: Shuntogram CLINICAL INDICATION: Female, 54 years old. headache COMPARISON: No prior exam. VIEWS: As above FINDINGS: Right-sided CARTON MAKING MACHINE OPERATOR shunt with tip projecting at the midline. The shunt can be seen along the right aspect of the neck and crossing midline in the chest. The catheter cannot be adequately visualized as it traverses the lower thoracic spine. It is seen again at the epigastrium and terminating in the right lower quadrant. Surgical clips in right upper and right lower quadrant. IMPRESSION: The CARTON MAKING MACHINE OPERATOR shunt is obscured as it crosses the lower thoracic spine, possibly due to underpenetration but unable to verify its integrity. The shunt is intact at the skull, neck, upper thorax, and abdomen.
[2024-10-11 14:29] LABS: Absolute Basophils 0.1 K/uL (0-0.5); Absolute Eosinophils 0.2 K/uL (0-0.5); Absolute Lymphocytes (CBC) 2.7 K/uL (0.7-4.9); Absolute Monocytes 0.4 K/uL (0.1-1.3); Absolute Neutrophil 2.5 K/uL (1.8-8.0); Basophils % 1.2 % (0-1.3); Hematocrit 39.7 % (36.0-45.0); Hemoglobin 13.1 g/dL (12.0-15.0); Lymphocytes % 45.7 % (15.3-44.8); MCH 27.6 pg (27.0-35.0); MCHC 33.1 g/dL (32.0-36.0); MCV 83.2 fL (80-100); MPV 9.3 fL (7.6-11.3); Monocytes % 6.8 % (3.3-12.3); Neutrophils % 42.3 % (41.7-73.7); Platelets 268 thou/uL (152-406); RBC Red Blood Cell Count 4.76 M/uL (3.86-4.86); Red Cell Distribution Width 15.7 % (12.1-15.2)
[2024-10-11 14:54] LABS: ALT/SGPT 106 U/L (13-56); AST/SGOT 86 U/L (15-37); Albumin 3.5 g/dL (3.4-5.0); Alkaline Phosphatase 235 U/L (45-117); Anion Gap 9.7 mEq/L (5.0-15.0); BUN Blood Urea Nitrogen 12 mg/dL (7-18); Bicarbonate 23 mEq/L (21-32); Bilirubin Total 0.2 mg/dL (0.2-1.0); Globulin 3.6 g/dL (2.3-3.5); Glomerular Filtration Rate 96 ml/min (=/>90); Glucose Level 87 mg/dL (74-106); Magnesium 2.5 mg/dL (1.6-2.4); Potassium 3.7 mEq/L (3.5-5.1); Protein, Total 7.1 g/dL (6.4-8.2); Sodium Level 139 mEq/L (136-145)
[2024-10-11 14:57] LABS: Bilirubin Direct < 0.2 mg/dL (0-0.2); Troponin High Sensitivity < 3.0 pg/mL (<58.9)
[2024-10-11] MEDS ORDERED: METOCLOPRAMIDE 10 MG/2mL INJ ONE (15:14)
[2024-10-11] MEDS ORDERED: KETOROLAC 30 MG/ML INJ ONE (15:14)
[2024-10-11] MEDS ORDERED: NA CHLORIDE 0.9% 1,000 ML ONE (15:14)
[2024-10-11] MEDS ORDERED: DIPHENHYDRAMINE 50 MG/ML VIAL ONE (15:14)
[2024-10-11 16:41] LABS: Specific Gravity 1.006 (1.005-1.030); Sqamous Epithelial <5 /HPF (None Seen); Urine Bacteria <20 /HPF (<20); Urine Bilirubin NEGATIVE (Negative); Urine Blood Negative (Negative); Urine Clarity Turbid (Clear); Urine Color Colorless (Yellow); Urine Culture Reflex Order NOT NEEDED; Urine Glucose NEGATIVE (Negative); Urine Ketones NEGATIVE (Negative); Urine Micro Reflex YN NO BILL MICROSCOPIC; Urine Nitrite NEGATIVE (Negative); Urine Protein NEGATIVE (Negative); Urine RBC <5 /HPF (None Seen); Urine Urobilinogen Normal (Normal); Urine WBC <5 /HPF (<5)
--- NOTE | 2024-10-11 16:52 | EDPHYS ---
Physician Documentation [facility] Name: Ila Schreiber Age: 54 yrs Sex: Female : 1970 Arrival Date: 10/11/2024 Time: 13:18 Bed 16 Private MD: ED Physician Vickey Cevallos HPI: 10/11 13:40 This 54 yrs old Female presents to ER via Ambulatory with complaints of Head pain. cp 13:40 The patient complains of pain to the right side of head. cp 13:40 The patient describes the headache as constant, sharp. Onset: The symptoms/episode cp began/occurred this morning. Associated signs and symptoms: Pertinent positives: nausea, vomiting, Pertinent negatives: altered mental status, fever, neck stiffness, paresthesias, vision changes, weakness, active vomiting. Severity of symptoms: in the emergency department the pain is unchanged, despite home interventions. 13:40 Patient reports past surgical history of [employer] shunt placement right side of head. cp Historical: - Allergies: 13:27 No Known Allergies; cm10 - PMHx: 13:27 RA; cm10 - PSHx: 13:27 Brain shunt/revision; Gastric Bypass; partial hysterectomy; cm10 - Immunization history:: Adult Immunizations up to date. - Infectious Disease History:: Denies. - Social history:: Smoking status: Patient denies any tobacco usage or history of. Patient/guardian denies using alcohol, street drugs. ROS: 13:45 Neuro: Positive for headache, cp 13:45 Constitutional: Negative for body aches, chills, fever, cp 13:45 Neck: Negative for pain with movement, pain at rest, stiffness, 13:45 Abdomen/GI: Positive for nausea, Negative for abdominal pain, vomiting, diarrhea, constipation, 13:45 Eyes: Negative for injury, pain, redness, and discharge, cp 13:45 ENT: Negative for drainage from ear(s), ear pain, sore throat, difficulty swallowing, difficulty handling secretions, 13:45 Cardiovascular: Negative for chest pain, edema, palpitations, 13:45 Respiratory: Negative for cough, shortness of breath, wheezing, 13:45 All other systems are negative, Exam: 13:50 Constitutional: The patient appears in no acute distress, alert, awake, cp non-diaphoretic, non-toxic, well developed, well nourished, obese, uncomfortable, 13:50 Head/Face: Normocephalic, atraumatic. cp 13:50 Eyes: Periorbital structures: appear normal, Conjunctiva: normal, no exudate, no injection, Sclera: no appreciated abnormality, Lids and lashes: appear normal, bilaterally, 13:50 ENT: External ear(s): are unremarkable, Nose: is normal, Mouth: Lips: moist, Oral mucosa: moist, Posterior pharynx: Airway: no evidence of obstruction, patent, 13:50 Chest/axilla: Inspection: normal, 13:50 Cardiovascular: Rate: normal, Rhythm: regular, Edema: is not appreciated, JVD: is not appreciated, 13:50 Respiratory: the patient does not display signs of respiratory distress, Respirations: normal, no use of accessory muscles, no retractions, labored breathing, is not present, Breath sounds: are clear throughout, no decreased breath sounds, 13:50 Abdomen/GI: Exam negative for discomfort, distension, guarding, Inspection: abdomen appears normal, 13:50 Back: pain, is absent, ROM is normal, 13:50 Neuro: Orientation: to person, place \T\ time. Mentation: is normal, Cerebellar function: Romberg testing is negative, Motor: moves all fours, strength is normal, Sensation: is normal, 15:12 ECG was reviewed by the Attending Physician. Vital Signs: 13:24 BP 127 / 74; Pulse 72; Resp 15; Temp 98.4(O); Pulse Ox 100% ; Weight 90.72 kg; Height 5 cm10 ft. 3 in. ; Pain 8/10; 17:15 BP 108 / 85; Pulse 75; Resp 18 S; Pulse Ox 99% on R/A; Pain 4/10; kc6 13:24 Body Mass Index 35.43 (90.72 kg, 160.02 cm) cm10 13:24 Pain Scale: Adult cm10 17:15 Pain Scale: Adult kc6 MDM: 13:51 Medical Screening Exam initiated jalen 16:18 ED course: Patient reports headache markedly improved. cp 16:51 Data reviewed: vital signs, nurses notes, lab test result(s), radiologic studies, CT cp scan, and as a result, I will discharge patient. 16:51 Differential diagnosis: hypertensive headache, hyponatremia, intracerebral hemorrhage, cp meningitis, meningoencephalitis, migraine, subarachnoid bleed, tension headache. I considered the following discharge prescriptions or medication management in the emergency department Medications were administered in the Emergency Department. See MAR. Independent interpretation of the following test(s) in the Emergency Department EKG: See my EKG interpretation above. Counseling: I had a detailed discussion with the patient and/or guardian regarding the historical points, exam findings, and any diagnostic results supporting the discharge/admit diagnosis, lab results, radiology results, the need for outpatient follow up, a neurosurgeon, to return to the emergency department if symptoms worsen or persist or if there are any questions or concerns that arise at home. Response to treatment: the patient's symptoms have markedly improved after treatment, and as a result, I will discharge patient. 10/11 13:37 Order name: Urinalysis W/Microscopic; Complete Time: 16:49 cp 10/11 16:49 Interpretation: Normal except: [facility] Turbid. cp 10/11 13:37 Order name: Basic Metabolic Panel; Complete Time: 16:11 cp 10/11 16:11 Interpretation: Normal except: CL 110. cp 10/11 13:37 Order name: CBC with Diff; Complete Time: 14:50 cp 10/11 13:37 Order name: LFT's; Complete Time: 16:11 cp 10/11 16:11 Interpretation: Normal except: AST 86; ALT 106; ALK 235; IBILI, CALC 0.0; GLOB 3.6; A/G cp 1.0. 10/11 13:37 Order name: Magnesium; Complete Time: 16:11 cp 10/11 13:37 Order name: Troponin HS; Complete Time: 16:11 cp 10/11 13:37 Order name: CT Head Brain wo Cont; Complete Time: 14:50 cp 10/11 14:51 Interpretation: Report reviewed. cp 10/11 13:37 Order name: Shuntogram XRAY; Complete Time: 14:50 cp 10/11 13:37 Order name: Cardiac monitoring; Complete Time: 15:10 cp 10/11 13:37 Order name: EKG - Nurse/Tech; Complete Time: 15:10 cp 10/11 13:37 Order name: IV Saline Lock; Complete Time: 14:15 cp 10/11 13:37 Order name: Labs collected and sent; Complete Time: 14:15 cp 10/11 13:37 Order name: O2 Per Protocol; Complete Time: 14:59 cp 10/11 13:37 Order name: O2 Sat Monitoring; Complete Time: 14:59 cp EC:12 Rate is 64 beats/min. Rhythm is regular. PA interval is normal. QRS interval is normal. cp QT interval is normal. T waves are Inverted in lead aVR. Interpreted by me. Reviewed by me. Administered Medications: 15:32 Drug: NS 0.9% IV 1000 ml IV at 1 bolus Per protocol; to be given as a bolus over 60 kc6 minutes Route: IV; Rate: 1 bolus; Site: right forearm; 16:38 Follow up: Response: No adverse reaction; IV Status: Completed infusion; IV Intake: kc6 1000ml 15:32 Drug: metoCLOPramide IVP 10 mg IVP once; over 1 to 2 minutes Route: IVP; Site: right kc6 forearm; 16:38 Follow up: Response: No adverse reaction kc6 15:32 Drug: diphenhydrAMINE IVP 25 mg IVP once Route: IVP; Site: right forearm; kc6 16:38 Follow up: Response: No adverse reaction kc6 15:32 Drug: Ketorolac IVP 15 mg IVP once Route: IVP; Site: right forearm; kc6 16:38 Follow up: Response: No adverse reaction; Pain is decreased kc6 Disposition Summary: 10/11/24 16:52 Discharge Ordered Notes: Location: Home cp Problem: new cp Symptoms: have improved cp Condition: Stable cp Diagnosis - Headache cp Followup: cp - With: Private Physician - When: 2 - 3 days - Reason: Recheck today's complaints Discharge Instructions: - Discharge Summary Sheet cp - General Headache Without Cause cp Forms: - Medication Reconciliation Form cp - Antibiotic Education cp - Prescription Opioid Use cp - Patient Portal Instructions cp - Leadership Thank You Letter cp Prescriptions: - Ibuprofen 800 mg Oral Tablet - take 1 tablet ORAL route every 8 hours As needed take with food; 30 tablet; cp Refills: 0, Product Selection Permitted - Reglan 10 mg Oral Tablet - take 1 tablet ORAL route every 6 hours take 30 minutes before meals and at cp bedtime; 20 tablet; Refills: 0, Product Selection Permitted Addendum: 10/12/2024 22:07 Co-signature as Attending Physician, Vickey Cevallos MD I agree with the assessment and c rich plan of care. Signatures: Dispatcher [employer] EDMS Vickey Cevallos MD MD cha Page, Corey, PA PA Natalie Tsai, RN RN kc6 Anastasia Richey RN RN cm10 Corrections: (The following items were deleted from the chart) 10/11 13:37 13:37 Urinalysis W/Microscopic+U.LAB.BRZ ordered. EDMS EDMS 13:37 13:37 BASIC METABOLIC PANEL+C.LAB.BRZ ordered. EDMS EDMS 13:37 13:37 CBC+H.LAB.BRZ ordered. EDMS EDMS 13:37 13:37 HEPATIC FUNCTION+C.LAB.BRZ ordered. EDMS EDMS 13:37 13:37 MAGNESIUM+C.LAB.BRZ ordered. EDMS EDMS 13:37 13:37 Troponin High Sensitivity+C.LAB.BRZ ordered. EDMS EDMS 13:37 13:37 Head Brain Wo Cont+CT.RAD.BRZ ordered. EDMS EDMS 13:37 13:37 Shuntogram+RAD.RAD.BRZ ordered. EDMS EDMS 13:37 13:37 Chest Single View+RAD.RAD.BRZ ordered. EDMS EDMS 10/12 16:58 10/11 13:40 The patient describes the headache as constant, cp cp 10/12 16:58 10/11 13:40 Associated signs and symptoms: Pertinent positives: nausea, Pertinent cp negatives: vision changes, vomiting, weakness, cp
--- NOTE | 2024-10-11 16:52 | ER ---
Nurse's Notes [facility] Name: Ila Schreiber Age: 54 yrs Sex: Female : 1970 Arrival Date: 10/11/2024 Time: 13:18 Bed 16 Private MD: Diagnosis: Headache Presentation: 10/11 13:24 Chief complaint: Patient states: Woke up this morning right sided headache. Pt cm10 describes the pain as a sharp pain. Pt reports having shunt on the right side. Pt also reports nausea and vomiting. Coronavirus screen: Client denies travel out of the [place] in the last 14 days. Ebola Screen: Patient denies travel to an Ebola-affected area in the 21 days before illness onset. Initial Sepsis Screen: Does the patient meet any 2 criteria? No. Patient's initial sepsis screen is negative. Does the patient have a suspected source of infection? No. Patient's initial sepsis screen is negative. Risk Assessment: Do you want to hurt yourself or someone else? Patient reports no desire to harm self or others. Onset of symptoms was October 11, 2024. 13:24 Method Of Arrival: Ambulatory cm10 13:24 Acuity: MONCHO 3 cm10 Triage Assessment: 13:28 General: Appears in no apparent distress. uncomfortable, Behavior is calm, cooperative. cm10 Pain: Complains of pain in head Pain does not radiate. Pain currently is 8 out of 10 on a pain scale. Quality of pain is described as sharp, shooting. Neuro: No deficits noted. Level of Consciousness is awake, alert, obeys commands, Oriented to person, place, time, situation, Appropriate for age Reports headache in right. Respiratory: No deficits noted. Airway is patent Respiratory effort is even, unlabored, Respiratory pattern is regular, symmetrical. Historical: - Allergies: 13:27 No Known Allergies; cm10 - PMHx: 13:27 RA; cm10 - PSHx: 13:27 Brain shunt/revision; Gastric Bypass; partial hysterectomy; cm10 - Immunization history:: Adult Immunizations up to date. - Infectious Disease History:: Denies. - Social history:: Smoking status: Patient denies any tobacco usage or history of. Patient/guardian denies using alcohol, street drugs. Screenin:37 [facility] ED Fall Risk Assessment (Adult) History of falling in the last 3 months, kc6 including since admission No falls in past 3 months (0 pts) Confusion or Disorientation No (0 pts) Intoxicated or Sedated No (0 pts) Impaired Gait No (0 pts) Mobility Assist Device Used No (0 pt) Altered Elimination No (0 pt) Score/Fall Risk Level 0 - 2 = Low Risk Oriented to surroundings, Maintained a safe environment, Educated pt \T\ family on fall prevention, incl call for assistance when getting out of bed. Abuse screen: Denies threats or abuse. Denies injuries from another. Nutritional screening: No deficits noted. Tuberculosis screening: No symptoms or risk factors identified. Assessment: 14:30 General: Appears in no apparent distress. uncomfortable, well groomed, well developed, kc6 Behavior is calm, cooperative, appropriate for age. Neuro: Level of Consciousness is awake, alert, obeys commands, Oriented to person, place, time, situation, Appropriate for age Reports headache. Cardiovascular: Capillary refill < 3 seconds. Respiratory: Airway is patent Trachea midline Respiratory effort is even, unlabored, Respiratory pattern is regular, symmetrical. GI: No signs and/or symptoms were reported involving the gastrointestinal system. : No signs and/or symptoms were reported regarding the genitourinary system. EENT: Reports photophobia. Derm: No signs and/or symptoms reported regarding the dermatologic system. Skin is intact, is healthy with good turgor, Skin is pink, warm \T\ dry. Musculoskeletal: No signs and/or symptoms reported regarding the musculoskeletal system. Circulation, motion, and sensation intact. Range of motion: intact in all extremities. 15:30 Reassessment: Patient appears in no apparent distress at this time. No changes from kc6 previously documented assessment. Patient and/or family updated on plan of care and expected duration. Pain level reassessed. Patient is alert, oriented x 3, equal unlabored respirations, skin warm/dry/pink. 17:17 Reassessment: Patient appears in no apparent distress at this time. No changes from kc6 previously documented assessment. Patient and/or family updated on plan of care and expected duration. Pain level reassessed. Patient is alert, oriented x 3, equal unlabored respirations, skin warm/dry/pink. Vital Signs: 13:24 BP 127 / 74; Pulse 72; Resp 15; Temp 98.4(O); Pulse Ox 100% ; Weight 90.72 kg; Height 5 cm10 ft. 3 in. ; Pain 8/10; 17:15 BP 108 / 85; Pulse 75; Resp 18 S; Pulse Ox 99% on R/A; Pain 4/10; kc6 13:24 Body Mass Index 35.43 (90.72 kg, 160.02 cm) cm10 13:24 Pain Scale: Adult cm10 17:15 Pain Scale: Adult kc6 ED Course: 13:20 Patient arrived in ED. mr 13:21 Vickey Torres PA is PHCP. cp 13:21 Vickey Cevallos MD is Attending Physician. cp 13:27 Triage completed. cm10 13:27 Arm band placed on right wrist. Patient placed in waiting room. cm10 13:44 CT Head Brain wo Cont In Process Unspecified. EDMS 14:09 Shuntogram XRAY In Process Unspecified. EDMS 14:15 Basic Metabolic Panel Sent. cm10 14:15 CBC with Diff Sent. cm10 14:16 LFT's Sent. cm10 14:16 Magnesium Sent. cm10 14:16 Troponin HS Sent. cm10 14:16 Initial lab(s) drawn, by [facility], sent to lab. Inserted saline lock: 20 gauge in right cm10 forearm, using aseptic technique. Blood collected. Flushed with 10 mL NS. 14:59 Natalie Joya, RN is Primary Nurse. kc6 16:38 Patient has correct armband on for positive identification. Bed in low position. Call kc6 light in reach. Side rails up X 1. Adult w/ patient. Pulse ox on. NIBP on. Door closed. Noise minimized. Lights dimmed. Warm blanket given. Pillow given. 16:38 Urine collected: clean catch specimen, clear. kc6 17:17 No provider procedures requiring assistance completed. IV discontinued, intact, kc6 bleeding controlled, No redness/swelling at site. Pressure dressing applied. Administered Medications: 15:32 Drug: NS 0.9% IV 1000 ml IV at 1 bolus Per protocol; to be given as a bolus over 60 kc6 minutes Route: IV; Rate: 1 bolus; Site: right forearm; 16:38 Follow up: Response: No adverse reaction; IV Status: Completed infusion; IV Intake: kc6 1000ml 15:32 Drug: metoCLOPramide IVP 10 mg IVP once; over 1 to 2 minutes Route: IVP; Site: right kc6 forearm; 16:38 Follow up: Response: No adverse reaction kc6 15:32 Drug: diphenhydrAMINE IVP 25 mg IVP once Route: IVP; Site: right forearm; kc6 16:38 Follow up: Response: No adverse reaction kc6 15:32 Drug: Ketorolac IVP 15 mg IVP once Route: IVP; Site: right forearm; kc6 16:38 Follow up: Response: No adverse reaction; Pain is decreased kc6 Medication: 17:18 VIS not applicable for this client. kc6 Intake: 16:38 IV: 1000ml; Total: 1000ml. kc6 Outcome: 16:52 Discharge ordered by . cp 17:17 Discharged to home ambulatory, with significant other, kc6 17:17 Condition: improved 17:17 Discharge instructions given to patient, significant other, Instructed on discharge instructions, follow up and referral plans. medication usage, Demonstrated understanding of instructions, follow-up care, medications, Prescriptions given X 2, 17:18 Patient left the ED. kc6 Signatures: Dispatcher [employer] EDAngeles Lloyd, Reg Reg mr Vickey Torres PA PA cp Campbell, Kaitlyn RN RN kc6 Anastasia Richey RN RN cm10
[2024-10-11 17:40] VITALS: TEMP 98.4
[2024-10-11 17:50] VITALS: BP 108/85; O2SAT 99
== END 2024-10-11 17:18 | disposition home or self-care (01) ==
LOC: ER 13:18
DX: R51.9 Headache, unspecified (principal); Z98.2 Presence of cerebrospinal fluid drainage device
CPT/HCPCS: 96361; 85025; 81001; 80048; 36415; 83735; 80076; 84484; 70450; 75809; 49427; 96375; 96374; 99284; J2765; J1200; J7030; 93005